=== PATIENT | female | born 1955 | race Caucasian/White ===

== ENCOUNTER 2018-06-11 00:31 | Outpatient (CLI) | payer OTHER, SELFPAY ==
--- NOTE | 2018-06-11 09:45 | DI.MAMMO_ITS ---
SYMPTOM/DIAGNOSIS: SCREENING, Z12.31 MAMMOGRAMS: Mammograms were interpreted according to the usual protocol including computer analysis with CAD system, tomosynthesis and C view imaging. Comparison is made with prior examinations. Breast density, category B. No suspicious masses or microcalcifications are seen. There are well circumscribed nodules seen in both breasts. The skin and axilla are unremarkable. IMPRESSION: No evidence for malignancy. Yearly mammography is recommended. Category 2B. MQSA ASSESSMENT OF FINDINGS: Negative with benign findings. Category 2. Patient will receive a letter notifying them of these results. BI-RADS category B. There are scattered areas of fibroglandular density.
== END 2018-06-11 00:51 ==
PROVIDERS: PCP Family Medicine; Visit Provider Family Medicine
DX: Z12.31 Encounter for screening mammogram for malignant neoplasm of breast (principal)
CPT/HCPCS: 77063; 77067

== ENCOUNTER 2019-01-16 15:27 | Outpatient (REF) | payer OTHER, SELFPAY ==
--- NOTE | 2019-01-16 14:20 | PAPFT_PTH ---
PATIENT: Dori New LOC: N U#:[id number] AGE/SX: 63/F ROOM: RE01/16/[address]: Trish Fuentes : 1955 BED: DIS: 01/16/2019 SPEC #: [id number] RECD: 01/16/19 16:35 STATUS: JOSEFA ANDERSON #: [id number] LOUISE: 01/16/19 14:[address]: Trish Fuentes DEPT: [facility] Cytology RECD BY: Michelle Cortez ENTERED: 01/16/19 16:36 SP TYPE: PAPFT OTHR DR: Gumaro Roberson Tissues: 1 - CX/ENDOCX FOR PAP SMEARS Procedures: PAP THIN PREP/UVM Screening HPV DNA PROBE Comments: [id number]
== END 2019-01-16 15:47 ==
LOC: LBN 15:27
PROVIDERS: PCP Family Medicine; Visit Provider Obstetrics & Gynecology Gynecology
DX: Z12.4 Encounter for screening for malignant neoplasm of cervix (principal); Z11.51 Encounter for screening for human papillomavirus (HPV)
CPT/HCPCS: 88142; 87624

== ENCOUNTER 2019-02-01 13:06 | Outpatient (CLI) | payer OTHER, SELFPAY ==
[2019-02-01 14:35] LABS: ALT 20 U/L (12-78); AST 17 U/L (15-37); Albumin 3.7 g/dL (3.4-5.0); Alkaline Phosphatase 98 U/L (46-116); Anion Gap 10.3 mmol/L (3-11); BUN 29 mg/dL (7-18); Bilirubin, Total 0.4 mg/dL (0.2-1.0); CO2 27.7 mmol/L (21.0-32.0); CREATININE 1.77 mg/dL (0.55-1.02); Calcium 10.2 mg/dL (8.5-10.1); Chloride 101 mmol/L (98-107); Estimated GFR 29.07 (mL/min/1.73m2); Glucose 159 mg/dL (70-100); Magnesium 1.5 mg/dL (1.8-2.4); PHOSPHORUS 3.4 mg/dL (2.6-4.7); Sodium 139 mmol/L (136-145); Total Protein 7.8 g/dL (6.4-8.2)
[2019-02-04 11:20] LABS: Parathyroid Hormone,Intact 47 pg/ml (19-88)
== END 2019-02-01 13:26 ==
PROVIDERS: PCP Family Medicine; Visit Provider Family Medicine
DX: E83.42 Hypomagnesemia (principal); N18.3 Chronic kidney disease, stage 3 (moderate)
CPT/HCPCS: 36415; 80053; 83735; 83970; 84100

== ENCOUNTER 2019-06-12 00:55 | Outpatient (CLI) | payer OTHER, SELFPAY ==
--- NOTE | 2019-06-12 10:30 | DI.MAMMO_ITS ---
EXAM: MG MAMMO SCREENING CLINICAL HISTORY: Screening,z12.31 TECHNIQUE: Bilateral full field digital CC and MLO mammographic images were obtained with 3D tomosy nthesis and utilizing computer aided detection (CAD). COMPARISON: With previous including May/2018. FINDINGS: The breasts are of moderate density with fairly symmetrical distribution of fibroglandular tissue. N o dominant mass or clumped microcalcification is identified in either breast. Current examination is compared with previous examinations including May 2018 and there has been no gross interval ch loreto in appearance in comparison with the previous studies. IMPRESSION: No specific evidence of malignancy at this time. Routine screenings examinations are suggested at yea rly intervals in this age group according to the ACS ACR guidelines. Category 1. Breast density, jeff rosy B. BI-RADS Cat 1 - Negative. Breast Density - Category B - Scattered areas of fibroglandular density.
== END 2019-06-12 01:15 ==
PROVIDERS: PCP Family Medicine; Visit Provider Obstetrics & Gynecology Gynecology
DX: Z12.31 Encounter for screening mammogram for malignant neoplasm of breast (principal)
CPT/HCPCS: 77063; 77067

== ENCOUNTER 2019-07-31 13:26 | Outpatient (REF) | payer OTHER, SELFPAY ==
[2019-07-31 15:15] LABS: Anion Gap 11.5 mmol/L (3-11); BUN 32 mg/dL (7-18); CO2 24.5 mmol/L (21.0-32.0); Calcium 9.9 mg/dL (8.5-10.1); Chloride 104 mmol/L (98-107); Estimated GFR 28.42 (mL/min/1.73m2); Glucose 146 mg/dL (70-100); Magnesium 1.6 mg/dL (1.8-2.4); Potassium 4.8 mmol/L (3.5-5.1); Sodium 140 mmol/L (136-145)
== END 2019-07-31 13:46 ==
LOC: NCHCN 13:26
PROVIDERS: PCP Family Medicine; Visit Provider Family Medicine
DX: E83.42 Hypomagnesemia (principal); N18.3 Chronic kidney disease, stage 3 (moderate)
CPT/HCPCS: 80048; 83735

== ENCOUNTER 2020-04-09 01:30 | Outpatient (CLI) | payer OTHER, SELFPAY ==
--- NOTE | 2020-04-09 07:30 | DI.RAD_ITS ---
EXAM: RF JOINT INJECTION FLUORO GUID CLINICAL HISTORY: R HIP INJ UNDER FLUORO,RT HIP PAIN, M25.559 TECHNIQUE: COMPARISON: No exams were available for comparison FINDINGS: Fluoroscopy was utilized by Dr. Dash during reported right hip injection. Hard copy shows intra- articular injection of the right hip. Fluoro time, 9 seconds. IMPRESSION:
[2020-04-09] MEDS: Omnipaque 300 MG/ML 10 ML BTL IJ (14:43)
[2020-04-09] MEDS: methylPREDNISolone ACETATE 80 MG/ML VIAL IM (14:44)
[2020-04-09] MEDS: Bupivacaine 0.5% Pres-Free 10 ML VIAL IJ (14:44)
--- NOTE | 2020-04-09 18:45 | W.PROCNOTE ---
Date of service: 04/09/20 Time of Service: 14:45 Procedure Note Date of procedure: 04/09/20 Procedure: Right Hip Injection with Fluoroscopic Guidance Surgeon/Proceduralist/Physician: Jacky Dash Procedure Diagnosis: Right Hip Osteoarthritis Procedure Indications: Angelina has had persistent pain of the RIGHT hip and groin. Noninvasive measures have been tried. To serve as both diagnostic and therapeutic, an injection under fluoroscopy was recommended. I had discussed the risks of the procedure and the patient elected to proceed. Procedure Description: Angelina was greeted in the flouroscopy room. The correct side was identified and the consent was reviewed with the patient and signed. The patient was then placed in the supine position on the fluoroscopy table. The RIGHT hip was then prepped with Chloraprep. The anterolateral injection starting point was identiifed by bony landmarks and fluoroscopy. The skin and soft tissue in the tract of the injection was anesthetized with 1% Lidocaine. A spinal needle was then inserted deep into the hip joint at the level of the lateral femoral neck under fluoroscopic guidance. A small amount of Omnipaque solution was injected to confirm intraarticular placement. Once confirmed, the hip was injected with 6cc of 0.5% Bupivicaine and 80mg of Depo-Medrol. A bandaid was placed on the injection site. The patient tolerated the procedure well and noted improvement in pre-injection pain.
== END 2020-04-09 01:50 ==
PROVIDERS: PCP Family Medicine; Visit Provider Student in an Organized Health Care Education/Training Program
DX: M25.551 Pain in right hip (principal); M16.11 Unilateral primary osteoarthritis, right hip
CPT/HCPCS: 20610; 77002; J1040

== ENCOUNTER 2020-05-14 11:04 | Outpatient (CLI) | payer OTHER, SELFPAY ==
--- NOTE | 2020-05-14 06:00 | DI.RAD_ITS ---
EXAM: XR PAIN CLINIC LUMBAR SP 2V CLINICAL HISTORY: Dx: Lumbar Spondylosis, LUMBAR MEDIAL BRANCH BLOCK TECHNIQUE: Fluoroscopy was provided for the referring physician for guidance with performing injecti on procedure. COMPARISON: No exams were available for comparison FINDINGS: Please see procedure note for details. Fluoro time: 51.5 seconds RADIATION DOSE DELIVERED:
[2020-05-14 11:39] VITALS: BP 117/78; PULSE 73; RESP 14; TEMP 36.4; O2SAT 97
--- NOTE | 2020-05-14 12:19 | PDOC.PAIN ---
Pain Clinic Procedure Note Procedure Note Procedure Note: Lumbar/Sacral Medial Branch Blocks CHRISTIAN HONG has been referred to the [facility] for lumbar/sacral medial branch blocks. COMMENTS: I reviewed her note from Ms. Cervantes and her recent imaging DX: Lumbosacral spondylosis without myelopathy Patient was interviewed and the medical record reviewed. There were no medical, pharmacologic, radiographic or other structural contraindications to attempting fluoroscopically guided local anesthetic lumbar/sacral medial branch blocks. Risks and expected side effects as well as potential benefit of the procedure were reviewed and voiced concerns addressed. The printed consent form was signed and witnessed. Standard time-out procedure was performed. Patient was placed in the prone position on the fluoroscopy table and automated blood pressure cuff and pulse oximeter applied. The skin entry points for approaching the anatomic target points of the segmental medial branches of bilateral L3-L5 were identified with anfluoroscopy and marked. Following thorough Chlorhexadine preparation of the skin and draping and 1% lidocaine infiltration of the skin entry points and subcutaneous tissues, a 22 gauge 5 spinal needle was placed under fluoroscopic guidance down on to the target point for each respective segmental medial branch.Position was confirmed in A/P, oblique and lateral views with 0.25ml of omnipaque 240. At that point 0.5ml of 0.5% Bupivacaine was injected towards each segmental nerve and the needles were removed.. Vital signs were stable throughout the procedure and were as recorded in the docflowsheet by the nursing staff. Follow up plans and appointments were discussed and was instructed to keep careful note of how the usual pain was modified by these injections. Specifically was asked to keep a pain diary for the next 24 hours using a numeric pain scale of 0-10 and report these results at the follow-up visit. Post procedure instruction was given as documented in the nursing documentation and having met discharge criteria. Patient was discharged from the [facility]. Based on the medial branches blocked today, if the patient has adequate relief and we are able to proceed to radiofrequency ablation, the treatment should result in the denervation of the bilateral L4-L5 and L5-S1 FACET JOINTS. We would expect to denervate a total of 4 facets during the radiofrequency ablation. COMMENTS: She will call back with her 1-4 hour post-procedure pain levels. CC: Gumaro Roberson
[2020-05-14 12:26] VITALS: BP 160/70; PULSE 92; RESP 22; O2SAT 97
[2020-05-14] MEDS: Omnipaque 240 MG/ML 50 ML BTL IJ (12:27)
[2020-05-14] MEDS: Bupivacaine 0.5% Pres-Free 10 ML VIAL IJ (12:27)
== END 2020-05-14 11:24 ==
PROVIDERS: PCP Family Medicine; Visit Provider Preventive Medicine Occupational Medicine
DX: M47.817 Spondylosis without myelopathy or radiculopathy, lumbosacral region (principal)
CPT/HCPCS: 64493; 64494; 72100; Q9967

== ENCOUNTER 2020-06-02 10:17 | Outpatient (REF) | payer OTHER, SELFPAY ==
[2020-06-02 16:32] LABS: ALT 20 U/L (14-59); AST 19 U/L (15-37); Albumin 3.8 g/dL (3.4-5.0); Alkaline Phosphatase 82 U/L (46-116); Anion Gap 10.1 mmol/L (3-11); BUN 29 mg/dL (7-18); Bilirubin, Total 0.5 mg/dL (0.2-1.0); CO2 27.9 mmol/L (21.0-32.0); CREATININE 2.08 mg/dL (0.55-1.02); Calcium 10.2 mg/dL (8.5-10.1); Chloride 102 mmol/L (98-107); Estimated GFR 24.05 (mL/min/1.73m2); Glucose 90 mg/dL (74-106); Magnesium 1.5 mg/dL (1.8-2.4); PHOSPHORUS 4.4 mg/dL (2.6-4.7); Potassium 4.5 mmol/L (3.5-5.1); Sodium 140 mmol/L (136-145); Total Protein 7.5 g/dL (6.4-8.2)
[2020-06-03 12:20] LABS: Parathyroid Hormone,Intact 30 pg/mL (19-88)
== END 2020-06-02 10:37 ==
LOC: NCHCN 10:17
PROVIDERS: PCP Family Medicine; Visit Provider Family Medicine
DX: E83.42 Hypomagnesemia (principal); N18.4 Chronic kidney disease, stage 4 (severe); E83.52 Hypercalcemia; E11.59 Type 2 diabetes mellitus with other circulatory complications
CPT/HCPCS: 80053; 83735; 83970; 84100

== ENCOUNTER 2020-06-25 02:46 | Outpatient (CLI) | payer OTHER, SELFPAY ==
--- NOTE | 2020-06-25 | DI.MAMMO_ITS ---
EXAM: MAMMO SCREENING CLINICAL HISTORY: SCREENING, Z12.39 TECHNIQUE: Mammograms were interpreted according to the usual protocol including computer analysis w [employer] CAD system, tomosynthesis and C-view imaging. COMPARISON: 2011 through 2018 FINDINGS: The breasts are composed of scattered fibroglandular densities, Breast Density category B. No suspicious masses or suspicious microcalcifications are seen. Vascular calcifications are noted. No skin thickening or abnormal axillary lymph nodes are seen. There has been no significant change from prior exams. IMPRESSION: BI-RADS Category 1, Negative mammogram Yearly screening mammography is recommended. Breast Density - Category B, scattered fibroglandular densities. A negative radiographic report should not delay biopsy if a dominant or clinically suspicious mass is present. Up to ten percent of cancers are not identified on mammography. A negative report may reinforce clinical impression. Adenosis and dense breasts may obscure an underlying neoplasm. False positive reports average 6 to 10%. Patient will receive a letter notifying them of these results.
== END 2020-06-25 03:06 ==
PROVIDERS: PCP Family Medicine; Visit Provider Family Medicine
DX: Z12.31 Encounter for screening mammogram for malignant neoplasm of breast (principal); R92.1 Mammographic calcification found on diagnostic imaging of breast
CPT/HCPCS: 77063; 77067

== ENCOUNTER 2020-07-09 11:12 | Outpatient (CLI) | payer OTHER, SELFPAY ==
--- NOTE | 2020-07-09 06:00 | DI.RAD_ITS ---
EXAM: XR PAIN CLINIC LUMBAR SP 2V CLINICAL HISTORY: Dx:Lumbar Spondylosis TECHNIQUE: 2D and realtime digital imaging was performed. CONTRAST MATERIAL: Refer to procedure report. COMPARISON: No exams were available for comparison FINDINGS: Fluoroscopy was provided for Dr. Reynolds during the performance of a lumbar medial branch block. Chon fowler refer to the procedure report for complete details. Fluoro time: 48.5 seconds IMPRESSION:
[2020-07-09 12:09] VITALS: BP 133/85; PULSE 83; RESP 16; TEMP 36.6; O2SAT 99
[2020-07-09] MEDS: Omnipaque 240 MG/ML 50 ML BTL IJ (12:50)
[2020-07-09] MEDS: Lidocaine 2% Pres-Free 5 ML VIAL IJ (13:01)
--- NOTE | 2020-07-09 13:03 | PDOC.PAIN ---
Pain Clinic Procedure Note Procedure Note Procedure Note: Lumbar/Sacral Medial Branch Blocks #2 CHRISTIAN HONG has been referred to the [facility] for lumbar/sacral medial branch blocks. COMMENTS: She did great with her first LMBB DX: Lumbosacral spondylosis without myelopathy Patient was interviewed and the medical record reviewed. There were no medical, pharmacologic, radiographic or other structural contraindications to attempting fluoroscopically guided local anesthetic lumbar/sacral medial branch blocks. Risks and expected side effects as well as potential benefit of the procedure were reviewed and voiced concerns addressed. The printed consent form was signed and witnessed. Standard time-out procedure was performed. Patient was placed in the prone position on the fluoroscopy table and automated blood pressure cuff and pulse oximeter applied. The skin entry points for approaching the anatomic target points of the segmental medial branches of bilateral L-L5DR were identified with anfluoroscopy and marked. Following thorough Chlorhexadine preparation of the skin and draping and 1% lidocaine infiltration of the skin entry points and subcutaneous tissues, a 22 gauge spinal needle was placed under fluoroscopic guidance down on to the target point for each respective segmental medial branch.Position was confirmed in A/P, oblique and lateral views with 0.25ml of omnipaque 240. At this point I injected 0.5 cc of 2% Lidocaine at each segmental sensory nerve. Vital signs were stable throughout the procedure and were as recorded in the docflowsheet by the nursing staff. Follow up plans and appointments were discussed and was instructed to keep careful note of how the usual pain was modified by these injections. Specifically was asked to keep a pain diary for the next 24 hours using a numeric pain scale of 0-10 and report these results at the follow-up visit. Post procedure instruction was given as documented in the nursing documentation and having met discharge criteria. Patient was discharged from the [facility]. Based on the medial branches blocked today, if the patient has adequate relief and we are able to proceed to radiofrequency ablation, the treatment should result in the denervation of the bilateral L4-L5 and L5-S1 FACET JOINTS. We would expect to denervate a total of 4 facets during the radiofrequency ablation. COMMENTS: She will call back with her 1-4 hour post-procedure pain scores. CC: Gumaro Roberson
[2020-07-09 13:08] VITALS: BP 142/92; PULSE 100; RESP 22; O2SAT 100
== END 2020-07-09 11:32 ==
PROVIDERS: PCP Family Medicine; Visit Provider Preventive Medicine Occupational Medicine
DX: M47.817 Spondylosis without myelopathy or radiculopathy, lumbosacral region (principal)
CPT/HCPCS: 64493; 64494; 72100; Q9967

== ENCOUNTER 2020-08-27 07:50 | Outpatient (CLI) | payer OTHER, SELFPAY ==
--- NOTE | 2020-08-27 06:00 | DI.RAD_ITS ---
EXAM: XR PAIN CLINIC LUMBAR SP 2V CLINICAL HISTORY: Dx: Lumbar Spondylosis TECHNIQUE: 2D and realtime digital imaging was performed. CONTRAST MATERIAL: Refer to procedure report. COMPARISON: No exams were available for comparison FINDINGS: Fluoroscopy was provided for Dr. Reynolds during the performance of a lumbar radiofrequency ablation pro cedure. Please refer to the procedure report for complete details. Fluoro time: 70.5 seconds IMPRESSION: As above
[2020-08-27 08:01] VITALS: BP 130/82; PULSE 84; RESP 17; TEMP 37; O2SAT 98
[2020-08-27] MEDS: Lactated Ringers 1,000 ML 80 ML IV (08:38)
[2020-08-27] MEDS: fentaNYL 100 MCG/2 ML VIAL IVP ×2 (08:39→08:47)
[2020-08-27] MEDS: Midazolam 2 MG/2 ML VIAL IVP (08:39)
[2020-08-27 09:19] VITALS: BP 140/69; PULSE 98; RESP 15; O2SAT 98
[2020-08-27] MEDS: methylPREDNISolone ACETATE 40 MG/ML VIAL IJ (09:32)
[2020-08-27] MEDS: Bupivacaine 0.5% Pres-Free 10 ML VIAL IJ (09:33)
[2020-08-27] MEDS: Lidocaine 2% Pres-Free 5 ML VIAL IJ (09:33)
[2020-08-27] MEDS: Lidocaine 1% Pres-Free 30 ML VIAL IJ (09:34)
--- NOTE | 2020-08-27 10:04 | PDOC.PAIN ---
Pain Clinic Procedure Note Procedure Note Procedure Note: [Right/Left/Bilateral] Lumbar Radiofrequency with Coolief Machine PROCEDURE NOTE Date of Service: August 27, 2020 Patient: CHRISTIAN HONG Provider: Dave Reynolds DO, MPH Pre Operative Diagnosis: Lumbosacral spondylosis without myelopathy Post Operative Diagnosis: Same PROCEDURE: Radiofrequency Ablation of medial branches - Bilateral L3 L4 L5 and bilateral S1 lateral branches CHRISTIAN HONG was brought into the fluoroscopy suite and positioned into the prone position on the fluoroscopy table and allowed to adjust to a position of comfort. A grounding pad was placed on the [right/left] thigh. The lumbar region was widely prepped with a chloraprep solution, allowed to air dry and draped in standard sterile surgical fashion. Local anesthesia was provided by 8 mL of 2% Lidocaine delivered with a 25g needle. A 17g 100mm radiofrequency introducer needle was placed to the planned anatomic targets guided with intermittent fluoroscopy with a perpendicular approach to terminally place at the junction of the superior articular process and the transverse process of the bilateral L3 L4 L5] and the base of the sacral ala on the bilateral for the L5 medial branch nerve. I also ablated the bilateral S1 lateral branches between the sacral ala and the S1 foramen The stylets were removed and radiofrequency probes with a 4mm active tip were then inserted. Needle tip position of the probes was verified in the AP, oblique, and lateral views. At each site, the medial branch nerve was stimulated at 2 Hz to a maximum 1-2 volts determined to finalize safe needle and electrode placement. The patient was awake and responsive during this portion of the procedure. Each target was anesthetized with 1-2 mL of 2 % Lidocaine for anesthesia for lesioning and then each target was lesioned at 80 degrees Celsius for 2 minutes and 30 seconds. Tissue impedences were noted to be between 250 and 500 Ohms. 1/8 cc of Depomedol (40 mg/cc) and 1 cc Bupivacaine was injected to each location after the ablation. Electrodes and needles were then removed and bandages placed over the needle placement sites, the patient then returned to the supine position on a stretcher and transported to the recovery room without hemodynamic, neurologic, or allergic reactions. Fluoroscopic images were printed for hard copy recording and digitally archived. Follow up plans and appointments were discussed with the CHRISTIAN . Post procedure instruction was given as documented in nursing documentation and having met discharge criteria, CHRISTIAN was discharged from the [facility]. COMMENTS: No complications. F/U with our office as needed. I personally performed this entire procedure. Dave Reynolds DO, MPH Attending Physician
== END 2020-08-27 08:10 ==
PROVIDERS: PCP Family Medicine; Visit Provider Preventive Medicine Occupational Medicine
DX: M47.816 Spondylosis without myelopathy or radiculopathy, lumbar region (principal)
CPT/HCPCS: 64635; 64636; 72100; J1030; J2250; J3010

== ENCOUNTER 2020-10-09 11:08 | Outpatient (CLI) | payer OTHER, SELFPAY ==
--- NOTE | 2020-10-09 10:00 | DI.RAD_ITS ---
EXAM: XR HIP RT COMPLETE AP PELVIS CLINICAL HISTORY: right hip DJD. TECHNIQUE: 2D digital imaging was performed. COMPARISON: CR PELVIS AP from 11/16/2017 CR LUMBAR SPINE AP, LAT from 12/11/2017 FINDINGS: There has been further progression of degenerative changes in the right hip, now severe with eliminat ion of the joint space and large osteophytes. The opposite-left hip it appears unchanged and exhibit s only minimal degenerative changes. IMPRESSION: Progression of osteoarthritic disease in the right hip which is now severe. DATA REPOSITORY: RADIATION DOSE DELIVERED:
== END 2020-10-09 11:28 ==
PROVIDERS: PCP Family Medicine; Referring Provider Family Medicine; Visit Provider Student in an Organized Health Care Education/Training Program
DX: M16.11 Unilateral primary osteoarthritis, right hip (principal)
CPT/HCPCS: 73502

== ENCOUNTER 2020-10-15 13:33 | Outpatient (REF) | payer OTHER, SELFPAY ==
[2020-10-15 16:02] LABS: HCT 40.6 % (36.0-46.0); HGB 12.8 g/dL (11.2-15.7); MCH 30.1 pg (27.0-33.0); MCHC 31.5 % (32.0-36.0); MCV 95.5 fL (80-95); MPV 10.7 fL (8.0-11.0); Platelet Count 271 10^3/uL (130-400); RBC 4.25 10^6/uL (3.93-5.22); RDW 13.9 % (11.7-14.6); RDW-SD 48.7 fL; WBC 9.37 10^3/uL (4.4-10.8)
[2020-10-15 16:20] LABS: ALT 19 U/L (14-59); AST 14 U/L (15-37); Albumin 3.9 g/dL (3.4-5.0); Alkaline Phosphatase 79 U/L (46-116); Anion Gap 10.8 mmol/L (3-11); BUN 31 mg/dL (7-18); Bilirubin, Total 0.4 mg/dL (0.2-1.0); CO2 25.2 mmol/L (21.0-32.0); CREATININE 1.82 mg/dL (0.55-1.02); Calcium 9.3 mg/dL (8.5-10.1); Chloride 105 mmol/L (98-107); Estimated GFR 27.97 (mL/min/1.73m2); Glucose 119 mg/dL (74-106); Potassium 5.2 mmol/L (3.5-5.1); Sodium 141 mmol/L (136-145); Total Protein 7.6 g/dL (6.4-8.2)
[2020-10-15 16:23] LABS: Iron 42 ug/dL (50-170); Total Iron Binding Capacity 270 ug/dL (250-450); Transferrin Sat 16 % (15-50)
[2020-10-15 16:34] LABS: Hemoglobin A1C 6.4 % (<5.7)
[2020-10-15 16:40] LABS: Magnesium 1.8 mg/dL (1.8-2.4); PHOSPHORUS 3.5 mg/dL (2.6-4.7); Vitamin D 25 Total 14.8 ng/ml (30-100)
[2020-10-16 09:01] LABS: Parathyroid Hormone,Intact 100 pg/mL (19-88)
== END 2020-10-15 13:53 ==
LOC: NCHCN 13:33
PROVIDERS: PCP Family Medicine; Visit Provider Family Medicine
DX: E83.42 Hypomagnesemia (principal); N18.4 Chronic kidney disease, stage 4 (severe); E11.29 Type 2 diabetes mellitus with other diabetic kidney complication; E83.52 Hypercalcemia
CPT/HCPCS: 80053; 82306; 85027; 83036; 83540; 83550; 83735; 83970; 84100

== ENCOUNTER 2020-10-16 00:49 | Outpatient (CLI) | payer OTHER, SELFPAY ==
[2020-10-17 17:11] LABS: COVID-19 RT-PCR Result NEGATIVE (Negative)
== END 2020-10-16 01:09 ==
PROVIDERS: PCP Family Medicine; Visit Provider Student in an Organized Health Care Education/Training Program
DX: Z11.52 Encounter for screening for COVID-19 (principal); Z01.818 Encounter for other preprocedural examination
CPT/HCPCS: U0003

== ENCOUNTER 2020-10-21 05:59 | Day surgery (SDC) | payer OTHER, SELFPAY ==
[2020-10-21] VITALS (9 sets, daily range): BP systolic 91–138; BP diastolic 46–66; PULSE 51–88; RESP 13–18; TEMP 36.2–36.7; O2SAT 97–100
[2020-10-21] MEDS: Acetaminophen 500 MG TAB 1000 MG PO (06:29)
[2020-10-21] MEDS: Celecoxib 200 MG CAP 400 MG PO (06:29)
[2020-10-21] MEDS: Lactated Ringers 1,000 ML 30 ML IV (06:30)
--- NOTE | 2020-10-21 07:17 | W.PM.DS.N ---
Date of service: 10/21/20 Time of Service: 14:21 DS: Diagnosis Discharge Diagnosis (1) Osteoarthritis of right hip: Status: Acute Discharge Plan Disposition Patient Disposition: HOME Condition: Good Discharge Details Reason For Visit: Right hip arthritis Attending Provider: Jacky Dash Primary Care Provider: Gumaro Roberson Home Meds and New Rx's Prescriptions: New aspirin 81 mg tablet,delayed release (DR/EC) 81 mg PO BID Qty: 60 RF: 0 acetaminophen 500 mg tablet 1,000 mg PO Q8H PRN (Reason: pain) Qty: 90 RF: 3 hydromorphone 2 mg tablet 2 mg PO Q4H PRN (Reason: pain) Qty: 15 RF: 0 pantoprazole 40 mg tablet,delayed release (DR/EC) 40 mg PO DAILY Qty: 30 RF: 0 docusate sodium [Colace] 100 mg capsule 100 mg PO BID PRNQty: 10 RF: 0 ibuprofen 600 mg tablet 600 mg PO TID PRN (Reason: pain) Qty: 90 RF: 3 Continued atorvastatin [Lipitor] 10 MG tablet 10 mg PO DAILY RF: 0 lisinopril 10 mg tablet 5 mg PO DAILY RF: 0 glipizide 10 mg tablet 5 mg PO DAILY RF: 0 Januvia 25 mg Tablet 25 mg PO DAILY RF: 0 Discontinued acetaminophen [Tylenol Extra Strength] 500 mg tablet 1,000 mg PO BID PRNRF: 0 aspirin [Aspir-81] 81 MG tablet,delayed release (DR/EC) 81 mg PO DAILY RF: 0 Discharge Instructions Additional Instructions: Dr. Dash's Total Hip Discharge Instructions Activity: The most important activity is to walk. You should try to take short walks a few times a day. You have no restrictions on movement or positioning, but do not try to force what you do. You will find some stiffness and weakness with hip flexion (lifting your knee). Do not try to strengthen this too early, continue to practice walking and stairs and this will come. - Outpatient physical therapy can be helpful to help return you to a normal gait and improve your flexibility and strength. This can start around 2 weeks. For most patients, it?s not necessary. Usually this is determined at the time of discharge or at the first post-operative visit. - You should wear the TREMAYNE hose or a compression sock on both legs for 2 weeks. You may remove those at night. These prevent blood pooling and swelling. Dressing: Keep the surgical dressing in place for at least one week, although it is recommended to stay in place untill follow-up. It may get wet after 3 days but avoid soaking the dressing. If it gets wet, just lightly pat dry. Most people prefer to cover the dressing with some ClingWrap, Saran Wrap, to keep it dry, or avoid direct spray to the area. It is important to always keep some gauze or the dressing between skin folds, especially when you are sitting, so the incision is not folded over on itself at the belly fold. Medications: - You should take Tylenol and an anti-inflammatory Ibuprofen as your primary pain control medications - You have been prescribed a stronger pain medication Hydromorphone for breakthrough pain, take as needed as prescribed. - You have also been prescribed a stomach acid reduction agent Pantoprozole to help reduce stomach acid and reflux. - You will be taking Aspirin 81mg twice a day for DVT prevention unless instructed otherwise. - If you have constipation you should take Colace or Miralax (both [id number]). It takes most people 3-4 days to have a bowel movement. Follow-up: 2 weeks. If you have any acute concerns or questions, please do not hesitate to contact the office at [phone]. You may contact Dr. Dash with any questions after hours through the hospital at [phone] or on his cell phone at [phone]. Referrals: Jacky Dash MD [ [facility] STAFF PHYSICIAN] - Equipment/Supplies: Walker Activity:: Activity as Tolerated Shower/Bathe:: 72 hours Diet:: Carb Counting Discharge Orders Discharge Orders: Discharge Order (Routine); Ordered 10/21/20 Ordered By: Jacky Dash DS: Summary Time Spent with Patient providing and/or coordinating discharge services: Less than 30 minutes Status at Discharge Functional status at discharge: uses cane/walker Overall status at discharge: patient is progressing back to baseline Mental Status: mental status grossly normal Speech and Movement: speech and movement normal Mood: congruent mood Affect: normal affect Exam Psych Mental Status: mental status grossly normal Speech and Movement: speech and movement normal Mood: congruent mood Affect: normal affect DS: Data Vitals/I&O Vitals and I&O: Vital Signs Temperature 36.7 C 10/21/20 06:05 Pulse 51 L 10/21/20 06:05 Pulse Rhythm Regular 10/21/20 06:05 Respiratory Rate 18 10/21/20 06:05 Respiratory Depth Normal 10/21/20 06:05 Blood Pressure 138/66 10/21/20 06:05 Pulse Oximetry 97 10/21/20 06:05 Oxygen Delivery Method Room Air 10/21/20 06:05 Oxygen Flow Rate 0 10/21/20 06:05 Intake & Output 10/20/20 10/20/20 10/21/20 11:59 23:59 11:59 Weight 120.202 kg 121.1 kg Data Completed and Pending Labs on day of discharge: Labs from last 24 hours 10/21/20 06:40 Patient ABO/Rh Pending [facility] Medical History Actinic keratitis Adult body mass index greater than 30 Asthma Chronic kidney disease, stage 3 Diabetes mellitus controlled with oral agents Diverticular disease Essential hypertension HTN (hypertension) Hypothyroidism Iliotibial band syndrome Irritable bowel syndrome with diarrhea Left tibialis posterior tendonitis Right hip pain Sciatica Ulcerative colitis Surgical History Arthroscopy, Shoulder (03/04/16) RIGHT SHOULDER/DR. ANTONIO Colonoscopy - IV Sedation frequently secondary to imflammatory bowel dz 2015 - . will begin routine schedule of surveillence H/O foot surgery Repair of umbilical hernia 2007 Replacement of total knee joint bilateral knee replacements Rotator Cuff Repair 10/2011 Family History Brother Myocardial infarction sudden episode Mother Chronic obstructive lung disease Father Alzheimer's disease aunt Personal history of malignant neoplasm Social History (Updated 04/22/20 @ 09:30 by Kateryna Graff) Smoking/Tobacco Use Status: Former Tobacco Use Quit Date: 09/25/79 Smoking risk assessment performed?: Yes Alcohol Intake: never Drug use: Never Substance use type: does not use Household members: spouse and other Details: H-Gael Number of Children: 2 number of grandchildren: 4 current occupation: 2018 retired [employer] Current gender identity: female What type of physical activity do you participate in: sedentary lifestyle and additional Details: Was physically active prior to injury of the foot Special crow needs: No Seatbelt use: always Do you feel safe at home: Yes Do you feel safe in your relationship?: Yes Additional Social history: . Female Reproductive History Menstrual Menopause type: natural History History 2 Para Hx # Term Pregnancies 2 Multiple births Hx # Pregnancies Ectopic pregnancies AB induced Hx Number of Living Children AB spontaneous
[2020-10-21] MEDS: ceFAZolin 3,000 MG in Normal Saline 100 ML 200 MG IVPB (07:53)
[2020-10-21] MEDS: Bupivacaine 0.25% Pres-Free 30 ML VIAL (09:14)
[2020-10-21] MEDS: Ketorolac 30 MG/ML VIAL (09:14)
--- NOTE | 2020-10-21 09:22 | DI.RAD_ITS ---
EXAM: XR HIP RT IN OR CLINICAL HISTORY: OA RIGHT HIP. TECHNIQUE: 2D and realtime digital imaging was performed. COMPARISON: CR XR HIP RT COMPLETE AP PELVIS from 10/09/2020 FINDINGS: Fluoroscopy was provided in the OR for Dr. Dash. Hard copy images show placement of a right hip prosthesis. The alignment appears satisfactory. Fluoro time: 38.4 seconds Please see procedure note for details. RADIATION DOSE DELIVERED:
--- NOTE | 2020-10-21 09:54 | ROE_ITS ---
Date of service: 10/21/20 Time of Service: 09:28 Operative Note Operative Note DATE OF PROCEDURE: 10/21/20 PRE-OP DIAGNOSIS: Right Hip Osteoarthritis POST-OP DIAGNOSIS: same PROCEDURE: Right Anterior Total Hip Arthroplasty, increased complexity due to morbid obesity SURGEON: Jacky Dash [employer]ENTY ONE DEALER: Pratik Nazario ANESTHESIA: spinal ESTIMATED BLOOD LOSS: 300 PATHOLOGY: none sent COMPLICATIONS: None Patient was transported to: PACU Patient's condition: stable Implants: 1. Depuy Edgewater Acetabular Component, 50mm 2. Depuy Acetabular Liner, [id number] 3. Depuy Corail Standard Collared Femoral Stem, Size 12 4. Depuy Altrx Ceramic Femoral Head, Size 32+5mm Indications: I have seen Angelina in clinic for symptoms of hip arthritis, confirmed with radiographic findings. Angelina has exhausted nonoperative methods and was having significant limitations in daily function and desired better function and less pain. I discussed the technical details of a hip replacement. I explained the risks of the procedure to include, but not limited to, bleeding, infection, pain, stiffness, fracture, damage to nerves and vessels, damage to muscles and tendons, loosening, instability, leg length inequality, need for repeat procedure, blood clot and cardiopulmonary demise. Despite these risks, Angelina elected to proceed. Findings: There was significant signs of arthritis throughout the hip. Large osteophytes were present throughout the femoral head and neck. Procedure Description: Angelina was greeted in the preoperative holding area where the correct side was identified and marked. The consent was reviewed with the patient and signed. The history and physical was updated. All questions were answered. Angelina was taken back to the operating room. A spinal anesthestic was then administered. The feet were wrapped with cast padding and Coban and then placed into the boot liners and then into the boots. Care was taken to protect the skin and make sure the heels were fully down and the boots were stable. The patient was then positioned onto the HANA table. Both legs were held in a neutral position. SCDs were applied. The patient was then slid down onto a peroneal post. The pannus was taped up and over to allow access to the anterior hip. A preoperative AP pelvis was obtained to serve as a reference for determining leg lengths. This AP was also utilized to identify the appropriate positioning of the incision. Prophylactic antibiotics in the form of Cefazolin were administered. 1g of Tranxemic Acid was given intravenously within 30 minutes of incision. The right leg was then prepped with Chloraprep and draped in a standard fashion. A second prep with Chloraprep was performed prior to placement of a shower-curtain type drape with Iodine impregnated skin protection. A timeout to confirm correct identity, side and site, procedure, allergies, anesthesia, and medical concerns was performed. An obliquely oriented incision was made starting lateral to the ASIS and running distal over the Tensor Fascia Elizabeth (TFL) muscle belly toward the fibular head, approximately 10cm. This incision had to be made slightly more distal to try to avoid going up onto her pannus fold. The skin and soft tissue was dissected sharply, through Mary?s fascia, and to the fascia of the TFL. Identification of the fascia was quite challenging given her morbid obesity. There were multiple fat layers and vasculature within the fat which had to be separately identified and coagulated. Once the fascia and superior border of the IT was band identified, the fascia was incised with a new knife just above any perforators from the IT band. The TFL muscle belly was bluntly dissected away from the fascia and moved laterally. The fat between TFL and rectus was identified to ensure the dissection was not within the TFL. Blunt dissection created space between abductors and the capsule and retractor was placed over the lateral femoral neck. The fibers of the rectus femoris tendon were iden tified and these were freed from the anterior capsule. A second cobra retractor was placed around the medial femoral neck. The TFL was further retracted laterally to show the deep fascia. Careful dissection through this layer identified three main crossing vessels of the lateral femoral circumflex. These were cauterized in multiple locations and then cut without any noticeable bleeding. The TFL was further released bluntly from the deep fascia to expose anterior hip capsule and fat The Marco orthopaedic retractor was then placed beneath the TFL and against sartorius and medial soft tissues to protect and retract the soft tissues. A T-capsulotomy was then performed starting at the superior lateral acetabulum and moving distally to the intertrochanteric ridge. These capsular flaps were tagged with a No. 1 Ethibond and elevated from within. The capsular flaps were released to the shoulder of the lateral neck and to the lesser trochanter to give excellent visualization of the proximal femur. A neck osteotomy was performed using an oscillating saw based on preoperative templates. This cut started in the shoulder and of the lateral neck and exited medially. The saw was at all times directed medially to avoid injury to the greater trochanter. 6cm of traction was applied to the leg and the osteotomy opened. The femoral head was removed with a corkscrew, making sure to protect the TFL on its exit. Traction was released after head removal. This was measured on the back table to determine the starting reamer size. Portions of the rectus obscuring visualization were minimally elevated off the superior acetabulum. An anterior retractor was placed over the anterior wall between capsule and labrum and attached to the Gripper retraction system. The femur was rotated to 90 degrees and medial capsule was fully released until the lesser trochanter was palpable and visible; the femur was returned to 30 degrees. A posterior retractor was placed similarly between capsule and labrum. This provided excellent visualization. The contents of the cotyloid fossa were removed with electrocautery and the labrum was removed with a knife. There was a notable floor osteophyte. There was significant chondromalacia of the superior acetabulum. Acetabular reaming began with a 46mm reamer. This first reaming was directed anterior to posterior and medial to get down to the true floor. This was inspected and reamed until the true floor was reached. The anterior retractor was then released and entry and exit was provided by traction on the capsular flaps. I then reamed sequentially up to a 50mm reamer where good fit was obtained. The larger reamers were oriented based on anatomical reference of the anterior and lateral zepeda to ensure proper abduction and anteversion. Positioning and size was confirmed with the fluoroscopy. A 50mm Depuy [place] acetabular component was selected. The acetabulum was reamed around the periphery with the selected acetabular size to prevent a rim fit. The deep tissues were irrigated. The acetabular component was then impacted in a position of about 40-45 degrees of abduction and 15-20 degrees of anteversion, using the patient?s anatomy as the ultimate landmark. Fluoroscopy was used to confirm this. There was excellent ad operations associate of the acetabular component and the inserting handle was removed. The acetabular liner, Depuy [id number] polyethylene liner, was inserted and lined up with the tines of the acetabular component. There was no soft tissue interposition. The liner was then impacted into position and confirmed to be well-seated. A portion of the nigel-articular cocktail was then injected around the acetabulum into the capsule and periosteum. This cocktail consisted of 50cc of 0.25% Bupivicaine and 20cc of Exparel and 30mg of Ketorolac. The leg was rotated to 120 degrees. Any remaining medial capsule was released until the lesser trochanter was easily palpable. A retractor was placed mediall y. The lateral capsule was further released into the shoulder to allow access to the greater trochanter. A Soni retractor was placed over the greater trochanter which allowed the trochanter to flip in front of the capsule for excellent exposure. The leg was brought down into maximal extension and 20 degrees of adduction while ensuring there was no impingement on the acetabulum. Any remnant capsule within the trochanter was released. Piriformis and obturator externis were identified and protected. There was excellent access to the proximal femur. The lateral neck remnant was removed with a rongeur. A blunt canal probe was used to identify the canal and trajectory for later broaching. A box osteotome initiated the broach course. A small curved rasp and a curved curette were used to work laterally. Broaching then began with a size 8 Corail broach. This was inserted manually around the trochanter and into the canal before mallet blows. Broaching was challenging given the prominence of her pannus fold. Manipulation of the fold with retractors was necessary to get the broach in a appropriate position. The broach was seated to a few millimeters below the cut level based on the neck cut and the preoperative template. Sequential broaching was continued with the Kincise pneumatic broaching device until a tight fit was obtained with good rotational control of the femur. A trial standard neck was inserted along with a +5 trial head. The leg was brought out of extension and adduction and then reduced with traction and internal rotation. The leg was stable anteriorly in a position of 30 degrees of extension and 90 degrees of external rotation. Fluoroscopy was used to ensure there was no fracture and the stem was seated well. Leg lengths were checked with an AP pelvis and pelvic reference points. Bottlenose navigation system was used to confirm appropriate positioning and leg length and offset. Once content with the desired offset and leg lengths, the leg was brought back into extension, external rotation and adduction. The periosteum and surrounding tissue was injected with remaining portion of the nigel-articular cocktail. The proximal femur was irrigated as well as the deep tissues. The Depuy Corail standard collared stem, size 12, was then manually inserted into the proximal femur making sure to control rotation. It was then malleted into position with light blows, giving breaks to allow bone expansion and decrease risk of fracture. The selected Depuy Altrx Ceramic Head, size 32+5mm, was then placed onto the clean and dry trunnion and secured with impaction onto the tapered fit. The leg was brought back out of extension and adduction and reduced with traction and internal rotation. Stability was confirmed with no shuck at 90 degrees of external rotation and 30 degrees of extension. No impingement through range of motion arc. Final x-ray images were obtained with fluoroscopy to confirm adequate positioning and no intraoperative fracture. The deep tissues were thoroughly irrigated with Irrisept chlorhexadine solution. The second dose of TXA 1g was administered intravenously.The capsule was then reapproximated with the previously placed Ethibond sutures. The TFL fascia was finally closed with a No. 2 Stratafix, barbed suture. Deep tissues were then reapproximated with 0 Vicryl and a running 2-0 Vicryl. The skin was closed with a running 4-0 Monocryl in a subcuticular fashion. This was reinforced with skin glue. A Mepilex silver dressing was applied. At the end of the case, all counts were correct. Angelina was transferred to the hospital bed without difficulty and suffering no apparent complication. Angelina has a good prognosis. Physical therapy will start today and without restrictions, weight-bearing as tolerated. Aspirin 81mg BID will be used for DVT prophylaxis.
[2020-10-21] MEDS: HYDROmorphone 2 MG TAB PO (13:36)
--- NOTE | 2020-10-21 14:00 | PT.INIE ---
Date of service: 10/21/20 Time of Service: 14:00 PT Notes Visit Reasons: Right hip arthritis Physical Therapy Day Surgery Initial Evaluation Date: 10/21/2020 Referring Doctor: Jacky Dash MD PT Orders: PT CONSULT: Status post Ortho surgery. Status post right GURPREET. Precautions: WBAT on right LE. Patient Profile/Admitting Diagnosis: Dori is a 65-year-old female with primary unilateral osteoarthritis of the right hip and is status post right total hip arthroplasty on postoperative day 0. PMHX: Medical History Actinic keratitis Adult body mass index greater than 30 Asthma Chronic kidney disease, stage 3 Diabetes mellitus controlled with oral agents Diverticular disease Essential hypertension HTN (hypertension) Hypothyroidism Iliotibial band syndrome Irritable bowel syndrome with diarrhea Left tibialis posterior tendonitis Right hip pain Sciatica Ulcerative colitis Surgical History Arthroscopy, Shoulder (03/04/16) RIGHT SHOULDER/DR. ANTONIO Colonoscopy - IV Sedation frequently secondary to imflammatory bowel dz 2014 - nl. will begin routine schedule of surveillence H/O foot surgery Repair of umbilical hernia 2007 Replacement of total knee joint bilateral knee replacements Rotator Cuff Repair 10/2011 Social History/Home Situation: Lives with in a private home with 4 steps to enter with one rail. There is another set of 10 steps leading to her bedroom with bilateral rails. Equipment Owned/DME: [facility], [facility] Subjective: Agreeable to PT consult. Reports 2?3/10 pain in the right hip at rest and 5/10 pain in the same area with weight bearing. Denies headache, chest pain, and lightheadedness throughout. Denies numbness and tingling in bilateral lower extremities. Emphasized that although she is hurting, this is a huge improvement from how much she has suffered prior to surgery. Objective: General Observation: Supine in stretcher. Mepilex Ag over his surgical incision. IV access in right UE. TEDS in both legs. Obese. Mental Status: Alert and oriented x 4 Pain: 2?3/10 in the right hip at rest, 5/10 with weight bearing ROM: Right Lower Extremity: Unable to bend beyond 90 degrees while seated at edge of bed due to pain despite 3 attempts. Hip abduction WFL. Knee flexion 45 degrees to 80 degrees limited by pain. Knee extension -45 degrees limited by pain. Ankle dorsiflexion 10 degrees beyond neutral. Ankle plantarflexion about 10 degrees. Left Lower Extremity: Hip flexion WFL. Hip abduction WFL. Knee flexion WFL. Ankle dorsiflexion absent. Ankle plantarflexion . Strength: Right Lower Extremity: Hip flexors 3-/5. Hip abductors 4-/5. Knee flexors 3-/5. Knee extensors 3-/5. Ankle dorsiflexors 3-/5. Ankle plantarflexors 3-/5. Left Lower Extremity: Hip flexors 4-/5. Hip abductors 4-/5. Knee flexors 4-/5. Knee extensors 4-/5. Ankle dorsiflexors 1/5. Ankle plantarflexors 1/5. Sensation: Intact as to pain and light pressure in bilateral lower extremities. Bed Mobility/Transfers: Supine to sit standby assist Sit to stand contact-guard assist Stand to sit standby assist Bed to chair contact-guard assist THERA EX: Complained of pain and only tolerated LAQ x3 on the right side. Gait: Guided patient through level surface ambulation of 100 feet using front wheeled walker with step to gait pattern and report of 5/10 pain in the right hip that subsided with rest. Stairs: Instructed patient with safe and correct technique while negotiating 4 x 4 inch steps holding onto rail with right hand and onto physical therapist's hand with the other, nurse Salvador and nurse Toshia assisting for safety. Minimal assist provided. Complained of increase in pain level to 5?6/10 in the right hip. Balance: Static Sitting: Normal Dynamic Sitting: Normal Static Standing: Fair Dynamic Standing: Fair Special Tests: Mobility Limitations Standardized Measure [facility] AM-PAC 6 clicks Basic Mobility Inpatient Short Form: Raw Score: 16 CMS Score: 54% deficit Informed Consent/Education: Patient instructed in purpose of PT consult. Packet containing [] exercise protocol has been given to patient. Education and training on initial set of exercises that can be done at home have been completed with patient. Assessment: Dori demonstrates functional mobility decline requiring the use of a front wheeled walker for all mobility ADL performance, impairment in balance, pain complaint, and increased risk for falls due to postoperative status. Patient presents with clinical signs and symptoms consistent with current/admitting diagnoses that have resulted to mobility limitations, gait instability, generalized weakness, and impairment of motor control as demonstrated by the following impairment level findings: 1. Decreased strength to right hip major muscle groups 2. Impaired standing balance 3. Limitation of joint range of motion in right hip and right knee 4. Postoperative Pain in R hip Impairments are contributing to the following functional limitations: 1. Inability to safely ambulate without assistive device 2. Increase completion time for mobility ADL performance 3. Increased fall risk Patient is assessed as a [id number] moderate complexity based on the following: History: 65-year-old female with impairment level findings, functional limitations, and past medical history as indicated above Examination: Demonstrable impairment in strength, balance, and mobility level with underlying impairments and functional limitations as documented above Presentation: Evolving Decision Makin moderate complexity Goals: N/A. PT evaluation and 1-2 treatment sessions only for functional mobility training using recommended AD and for HEP instruction. Plan of Care/Treatment Plan: N/A. PT evaluation and 1-2 treatment session only for functional mobility training using recommended AD and for HEP instruction. DISCHARGE RECOMMENDATIONS: Home when medically cleared by orthopedic surgeon. Will benefit from outpatient PT services in order to achieve highest functional level using single-point cane. TREATMENT CODE/TIME: Session 1??[id number] x 20 minutes, [id number] x 13 minutes beginning at 12:57 PM. Session 2??[id number] x 28 minutes beginning at 14:00 PM. Thank you for the opportunity to participate in the care of this patient. Rolanda Simental PT, DPT, CLT [facility] [place], [place]
== END 2020-10-21 15:03 | disposition home or self-care (01) ==
PROVIDERS: PCP Family Medicine; Visit Provider Student in an Organized Health Care Education/Training Program
PROC: (CPT 27130; principal; 2020-10-21 07:30)
DX: M16.11 Unilateral primary osteoarthritis, right hip (principal); Z96.641 Presence of right artificial hip joint; E66.01 Morbid (severe) obesity due to excess calories; Z68.41 Body mass index [BMI] 40.0-44.9, adult; E11.22 Type 2 diabetes mellitus with diabetic chronic kidney disease; N18.30 Chronic kidney disease, stage 3 unspecified; I10 Essential (primary) hypertension
CPT/HCPCS: 27130; 20985; C1776; 86850; 86900; 86901; 97162; 97530; NC; 73501; J0690; J1885; J2405

== ENCOUNTER 2020-11-06 10:51 | Outpatient (CLI) | payer OTHER, SELFPAY ==
--- NOTE | 2020-11-06 11:23 | DI.RAD_ITS ---
EXAM: XR HIP RT COMPLETE AP PELVIS INDICATION: 1st post op R GURPREET. COMPARISON: CR XR HIP RT COMPLETE AP PELVIS from 10/09/2020 XR HIP RT IN OR from 10/21/2020 XR HIP RT IN OR from 10/21/2020 TECHNIQUE: 2D digital imaging was performed. FINDINGS: There has been no change in the alignment of the right hip prosthesis. No abnormal bony lucencies ar e seen. DATA REPOSITORY: RADIATION DOSE DELIVERED:
== END 2020-11-06 10:52 | disposition home or self-care (01) ==
LOC: DIORS 10:52
PROVIDERS: PCP Family Medicine; Referring Provider Family Medicine; Visit Provider Physician Assistant
DX: Z96.641 Presence of right artificial hip joint (principal)
CPT/HCPCS: 73502

== ENCOUNTER 2020-12-07 15:34 | Outpatient (REF) | payer OTHER, SELFPAY ==
[2020-12-07 16:07] LABS: Anion Gap 10.7 mmol/L (3-11); BUN 31 mg/dL (7-18); CO2 27.3 mmol/L (21.0-32.0); CREATININE 1.6 mg/dL (0.55-1.02); Calcium 10.1 mg/dL (8.5-10.1); Chloride 103 mmol/L (98-107); Estimated GFR 32.45 (mL/min/1.73m2); Glucose 133 mg/dL (74-106); Sodium 141 mmol/L (136-145)
== END 2020-12-07 15:35 | disposition home or self-care (01) ==
LOC: NCHCN 15:34
PROVIDERS: PCP Family Medicine; Visit Provider Family Medicine
DX: I10 Essential (primary) hypertension (principal); E87.5 Hyperkalemia; N18.4 Chronic kidney disease, stage 4 (severe)
CPT/HCPCS: 80048

== ENCOUNTER 2021-07-05 02:01 | Outpatient (CLI) | payer OTHER, SELFPAY ==
[2021-07-05 12:47] LABS: Source Nasal/Nares
[2021-07-05 18:06] LABS: COVID-19 PCR Negative (Negative)
== END 2021-07-05 02:02 | disposition home or self-care (01) ==
LOC: LBO 02:01
PROVIDERS: PCP Family Medicine; Visit Provider Student in an Organized Health Care Education/Training Program
DX: Z20.822 Contact with and (suspected) exposure to COVID-19 (principal); Z01.818 Encounter for other preprocedural examination
CPT/HCPCS: 87635

== ENCOUNTER 2021-07-07 06:16 | Day surgery (SDC) | payer OTHER, SELFPAY ==
[2021-07-07 06:30] VITALS: BP 141/70; PULSE 93; RESP 16; TEMP 36.7; O2SAT 97
[2021-07-07] MEDS: Lactated Ringers 1,000 ML 80 ML IV (07:00)
--- NOTE | 2021-07-07 07:07 | W.ANESPRE ---
General Info Date of Service Date Performed: 07/07/21 Height: 5 ft 5 in Weight: 126.2 kg Body Mass Index (BMI): 46.3 Surgical Procedure: Operation Date: 07/07/21 07:40 Proposed Procedures Side Surgeon p Wrist ECTR Left Jacky Dash MD Meds Allergies and Home Medications Allergies Allergy/AdvReac Type Severity Reaction Status Date / Time amoxicillin Allergy Unknown Verified 07/06/21 11:06 sulfamethoxazole Allergy Unknown Verified 07/06/21 11:06 [From Bactrim] trimethoprim [From Bactrim] Allergy Unknown Verified 07/06/21 11:06 oxycodone AdvReac Intermediate HALLUCINATI Verified 07/06/21 11:06 ONS Penicillins AdvReac RASH Verified 07/06/21 11:06 Sulfa (Sulfonamide AdvReac RASH Verified 07/06/21 11:06 Antibiotics) Home Medication Medication Instructions Recorded atorvastatin [Lipitor] 10 mg PO DAILY tab-cap 12/06/13 lisinopril 10 mg tablet 5 mg PO DAILY tab-cap 04/06/20 glipizide 10 mg tablet 5 mg PO DAILY tab-cap 06/22/20 Januvia 25 mg PO DAILY 07/09/20 acetaminophen 1,000 mg PO Q8H PRN #90 tab 10/21/20 aspirin 81 mg tablet,delayed 81 mg PO DAILY 07/01/21 release hydrocodone-acetaminophen 1 tab PO Q6H PRN #3 tab 07/07/21 ibuprofen 600 mg PO TID PRN #90 tab 07/07/21 Current Visit Medications: Current Medications Generic Name Dose Route Start Last Admin Trade Name Freq PRN Reason Stop Dose Admin Ringer's Solution 1,000 mls @ 80 mls/hr 07/07/21 06:00 IV 07/25/21 23:59 INFUSION AMANDA Cefazolin Sodium 3,000 mg/ 100 mls @ 200 mls/hr 07/07/21 06:00 Sodium Chloride IVPB 07/07/21 23:59 PREOP AMANDA IV Miscellaneous Supplies 1 each 07/07/21 06:00 Iv Access IV 07/25/21 23:59 DIRECTED AMANDA Sodium Chloride 0 ml 07/07/21 06:00 Normal Saline Flush 10 Ml Syr IV 07/25/21 23:59 PRN PRN Sodium Chloride 0 ml 07/07/21 06:00 Normal Saline 10 Ml Vial IJ 07/25/21 23:59 DIRECTED PRN Sterile Water 0 ml 07/07/21 06:00 Water,Injection,Sterile 10 Ml Vial IJ 07/25/21 23:59 DIRECTED PRN PFSH Active Problems Active Problems: Problem Status Onset Code Left carpal tunnel syndrome G56.02 History of total right hip replacement 10/21/20 Z96.641 Diverticular disease Sciatica Diabetes mellitus Iliotibial band syndrome Chronic kidney disease, stage 3 Actinic keratitis Hypothyroidism Left tibialis posterior tendonitis Irritable bowel syndrome with diarrhea Adult body mass index greater than 30 Right hip pain Ulcerative colitis Asthma Arthroscopy, Shoulder 03/04/16 Colonoscopy - IV Sedation Repair of umbilical hernia Rotator Cuff Repair Replacement of total knee joint Leukoplakia oral mucosa 12/04/14 K13.21 Spondylosis of lumbar region without myelopathy or radiculopathy M47.816 Medical History Medical History Actinic keratitis Adult body mass index greater than 30 Asthma Chronic kidney disease, stage 3 Diabetes mellitus controlled with oral agents Diverticular disease Essential hypertension HTN (hypertension) Hypothyroidism Iliotibial band syndrome Irritable bowel syndrome with diarrhea Left tibialis posterior tendonitis Right hip pain Sciatica Ulcerative colitis Surgical History Surgical History (Updated 07/07/21 @ 07:30 by LLUVIA Stroud) Arthroscopy, Shoulder (03/04/16) RIGHT SHOULDER/DR. ANTONIO Colonoscopy - IV Sedation frequently secondary to imflammatory bowel dz 2015 - nl. will begin routine schedule of surveillence H/O foot surgery History of total right hip replacement (10/21/20) Left carpal tunnel syndrome S/P ECTR: 07/07/2021 Repair of umbilical hernia 2007 Replacement of total knee joint bilateral knee replacements Rotator Cuff Repair 10/2011 Tobacco Smoking/Tobacco Use Status: Former Tobacco Use Alcohol Alcohol Intake: never Substance Use Substance use: Never Substance use type: does not use Prental History History 2 Para Hx # Term Pregnancies 2 Multiple births Hx # Pregnancies Ectopic pregnancies AB induced Hx Number of Living Children AB spontaneous Vital Signs and Lab Results Vital Signs Most Recent Vital Signs in EMR: Most Recent Vital Signs Temp Pulse Resp BP Pulse Ox 36.7 C 93 H 16 141/70 H 97 07/07/21 06:30 07/07/21 06:30 07/07/21 06:30 07/07/21 06:30 07/07/21 06:30 Lab Results Blood Type / Crossmatch: No Data to Display Complete Blood Count: No Data to Display Complete Metabolic Panel: No Data to Display Liver Function Panel: No Data to Display Coagulation Panel: No Data to Display Cardiac Panel: No Data to Display Arterial Blood Gas: No Data to Display Venous Blood Gas: No Data to Display Pancreas Panel: No Data to Display Thyroid Panel: No Data to Display Infectious Disease: Coronavirus (COVID-19)(PCR) Negative (Negative) 07/05/21 10:46 07/05/21 Coronavirus 2019 Source Nasal/Nares 07/05/21 10:46 07/05/21 Blood Cultures: No Data to Display Toxicology Panel: No Data to Display Anesthesia Assessment and Plan Anesthesia History Personal History: No History of Anesthesia Complications Family History: No Family History of Anesthesia Complications Exercise Tolerance Exercise Tolerance: Metabolic Equivalents>4 Pertinent Negatives Pertinent Negatives: No Symptoms of GERD, No Major Cardiovascular Symptoms or Complaints, No Major Pulmonary Symptoms or Complaints (Patient denies asthma sx) and No History of CVA/TIA Cardiac & Pulmonary Exam Cardiac Exam: Normal S1/S2 Heart Sounds Pulmonary Exam: Clear Bilateral Breath Sounds Airway Exam Known Difficult Airway: No Mallampati Class: 2 Mouth Opening: Normal (> 3cm) Thyromental Distance: Greater than 3 cm Neck Range of Motion: Full ROM Neck Circumference: Normal Teeth Condition: Normal Dentition ASA Classification ASA Score: ASA 3 Emergency Case?: No NPO Status NPO Status: NPO Clears >2 hours, Solids >8 hours Anesthesia Plan Resuscitation Status: Full Code Anesthesia Technique: General Anesthesia Airway Planned: Endotracheal Tube Monitors Used: Standard Monitors
--- NOTE | 2021-07-07 07:30 | PDOC.DSDIS_ITS ---
Discharge Plan Disposition Patient Disposition: HOME Condition: Good Discharge Details Reason For Visit: L ECTR Attending Provider: Jacky Dash Primary Care Provider: Gumaro Roberson [place] Meds and New Rx's Prescriptions: New hydrocodone-acetaminophen 5-325 mg tablet 1 tab PO Q6H PRN (Reason: pain) Qty: 3 RF: 0 ibuprofen 600 mg tablet 600 mg PO TID PRN (Reason: pain) Qty: 90 RF: 0 Continued aspirin [Adult Aspirin Regimen] 81 mg tablet,delayed release (DR/EC) 81 mg PO DAILY RF: 0 atorvastatin [Lipitor] 10 MG tablet 10 mg PO DAILY RF: 0 lisinopril 10 mg tablet 5 mg PO DAILY RF: 0 glipizide 10 mg tablet 5 mg PO DAILY RF: 0 Januvia 25 mg Tablet 25 mg PO DAILY RF: 0 acetaminophen 500 mg tablet 1,000 mg PO Q8H PRN (Reason: pain) Qty: 90 RF: 3 Discharge Instructions Stand Alone Forms: Ekta Ridley Tunnel Release Activity:: Activity as Tolerated Remove Dressings/Wound Care:: 48 hours Shower/Bathe:: 48 hours Diet:: As Tolerated Discharge Orders Discharge Orders: Discharge Order (Routine); Ordered 07/07/21 Ordered By: Pratik Nazario DS: Diagnosis Discharge Diagnosis (1) Left carpal tunnel syndrome: Status: Acute
[2021-07-07] MEDS: ceFAZolin 3,000 MG in Normal Saline 100 ML 200 MG IVPB (07:33)
[2021-07-07] MEDS: Sodium Bicarbonate 50 MEQ/50 ML VIAL (07:38)
[2021-07-07 07:41] VITALS: BMI 46.3
[2021-07-07 07:52] VITALS: BP 131/77; PULSE 92; RESP 16; TEMP 36.7; O2SAT 94
[2021-07-07 08:19] VITALS: BP 134/75; PULSE 83; RESP 16; TEMP 36.8; O2SAT 96
--- NOTE | 2021-07-07 09:09 | W.ANESPOSTOP ---
Postoperative Evaluation Date, Time and Location Date Performed: 07/07/21 Time Performed: 09:09 Patient Location: Day Surgery Unit Vital Signs Most Recent Imported Vital Signs: Most Recent Vital Signs Temp Pulse Resp BP Pulse Ox 36.8 C 83 16 134/75 96 07/07/21 08:19 07/07/21 08:19 07/07/21 08:19 07/07/21 08:19 07/07/21 08:19 Pain Score Most Recent Pain Score: Most Recent Pain Score Pain Level 0 07/07/21 08:19 Assessment Mental Status: Awake (Alert & Oriented to Patient Baseline) Airway and Respiratory Function: Patent airway with normal (patient baseline) respiratory exam Cardiovascular Function: Hemodynamically Stable Hydration Status: Adequately Hydrated Nausea & Vomiting: No Nausea or Vomiting Pain: Pt. Denies Any Pain Peripheral Nerve Block: Patient did not receive a nerve block
--- NOTE | 2021-07-08 06:50 | W.PM.OP ---
Date of service: 07/07/21 Time of Service: 07:50 Operative Note Operative Note DATE OF PROCEDURE: 07/08/21 PRE-OP DIAGNOSIS: Left Carpal Tunnel Syndrome POST-OP DIAGNOSIS: same PROCEDURE: Left Endoscopic Carpal Tunnel Release SURGEON: Jacky Dash ANESTHESIA TYPE: General:No Airway Refer to Anesthesia Record ESTIMATED BLOOD LOSS: 0 PATHOLOGY: none sent TOURNIQUET TIME: 6 COMPLICATIONS: None Patient was transported to: same day Patient's condition: stable Indications: I have seen Angelina in clinic for symptoms of carpal tunnel syndrome. The numbness, tingling, and pain limited function. Clinical exam findings with nerve conduction tests confirmed the diagnosis of carpal tunnel syndrome. Nonoperative measures such as bracing, time, activity modifications had been tried but disability and pain persisted. I discussed carpal tunnel release with the patient. I reviewed the risks of the procedure to include, but not limited to, bleeding, infection, pain, stiffness, incomplete release, damage to nerves or vessels, persistent numbness, recurrence. Despite these risks, the patient elected to proceed. Findings: There was tightened carpal tunnel. This was dilated and released successfully with the endoscopic with increased space within the tunnel. The antebrachial fascia was released proximally freeing the median nerve at the wrist. Procedure Description: Angelina was greeted in the preoperative holding area where the correct side was identified and marked. The consent was reviewed with the patient and signed. The history and physical was updated. All questions were answered. Angelina was taken back to the operating room. The patient was placed into the supine position on the operating room table with the left arm on an arm board. A nonsterile tourniquet was placed high onto the arm. All bony prominences were well padded. Prophylactic antibiotics in the form of Cefazolin were administered. The left arm was then prepped with Chloraprep and draped in a standard fashion with stockinette and extremity drape. A timeout to confirm correct identity, side and site, procedure, allergies, anesthesia, and medical concerns was performed. The surgical site was marked in the volar wrist creases in line with the radial border of the fourth ray. This area was anesthetized with approximately 6cc of 1% Lidocaine. The limb was then exsanguinated with an Esmarch. The skin was incised with a 15 blade, approximately 1cm. The skin only was cut and the deeper tissue was dissected bluntly with a tenotomy scissor, avoiding passing nerve and venous structures. The fascia was penetrated and opened bluntly. A two-prong skin hook was placed under this proximal fascial edge. A series of hamate finders were used to identify and dilate the carpal tunnel. Synovial elevator was used to free synovial attachments to the underside of the transverse carpal ligament. My thumb was kept in the palm to balwinder the distal extent of the carpal tunnel and correctly position the hand. The [employer] endoscope was inserted without difficulty and without resistance. Excellent visualization showed horizontally running fibers of the transverse carpal ligament (TCL). The distal extent of the TCL was visualized and the end of the scope palpated with the thumb. The blade was elevated and withdrawn from distal to proximal. The TCL was split into two flaps. The endoscope was reinserted to confirm complete release and any remnant ligament was incised. The scope was withdrawn and the proximal aspect of the carpal tunnel was grossly inspected and appeared release with the median nerve visible. The antebrachial fascia at the level of the wrist was then freed from the overlying skin and then the underlying median nerve with blunt dissection. This was transected longitudinally for about 3cm proximal to the wrist incision. The wound was then irrigated with easy flow of irrigant distally and proximally. The incision was closed with a single 4-0 Nylon suture. The wound was dressed with Xeroform, Gauze, Kerlix and Ronald. The tourniquet was deflated with the initial dressing and held with some pressure. Blood flow returned easily to all digits with capillary refill less than 2 seconds. The patient tolerated the procedure well and was returned to the Same Day Surgery area in a stable condition suffering no known complication.
== END 2021-07-07 09:14 | disposition home or self-care (01) ==
PROVIDERS: PCP Family Medicine; Visit Provider Student in an Organized Health Care Education/Training Program
PROC: 01N54ZZ Release Median Nerve, Percutaneous Endoscopic Approach (ICD-10-PCS; CPT 29848; principal; 2021-07-07 07:30)
DX: G56.02 Carpal tunnel syndrome, left upper limb (principal); I10 Essential (primary) hypertension; E78.5 Hyperlipidemia, unspecified; E11.9 Type 2 diabetes mellitus without complications
CPT/HCPCS: 29848; J0690; J2001

== ENCOUNTER 2021-10-03 08:44 | Emergency (ER) | payer OTHER, SELFPAY ==
[2021-10-03] VITALS (8 sets, daily range): BP systolic 137–151; BP diastolic 67–84; PULSE 95–113; RESP 16; TEMP 36.3; O2SAT 95–98
--- NOTE | 2021-10-03 08:45 | RT.EKG_ITS ---
APPROVED REPORT Exam: Resting ECG Reason for Exam: sob Patient Location: E HR:105 bpm ECG Measurements Heart Rate 105 AXIS AR 182 P 63 QRSd 88 QRS 30 QT 336 T [id number] QTc 444 Conclusion Sinus tachycardia...rate> 99
--- NOTE | 2021-10-03 09:30 | ED.GENADUL_ITS ---
Discharge Plan Disposition Patient Disposition: HOME Condition: Improving Discharge Details Clinical Impression: Acute bronchitis Primary Care Provider: Gumaro Roberson ED Provider: Max White Home Meds and New Rx's Prescriptions: New azithromycin 250 mg tablet See Rx Instructions .ROUTE .COMPLEX Qty: 6 RF: 0 guaifenesin [Mucinex] 600 mg tablet extended release 12hr 600 mg PO Q12H PRNQty: 10 RF: 0 Continued aspirin [Adult Aspirin Regimen] 81 mg tablet,delayed release (DR/EC) 81 mg PO DAILY RF: 0 atorvastatin [Lipitor] 10 MG tablet 10 mg PO DAILY RF: 0 lisinopril 10 mg tablet 25 mg PO DAILY RF: 0 glipizide 10 mg tablet 5 mg PO DAILY RF: 0 Januvia 25 mg Tablet 50 mg PO DAILY RF: 0 acetaminophen 500 mg tablet 1,000 mg PO Q8H PRN (Reason: pain) Qty: 90 RF: 3 hydrocodone-acetaminophen 5-325 mg tablet 1 tab PO Q6H PRN (Reason: pain) Qty: 3 RF: 0 ibuprofen 600 mg tablet 600 mg PO TID PRN (Reason: pain) Qty: 90 RF: 0 Discharge Instructions Instructions: Acute Bronchitis (ED) Additional Instructions: Please take medications as prescribed. Return to the emergency room for any acute concerns. You will receive a call regarding the results of your COVID-19 test. Stand Alone Forms: PENDING COVID-19 TESTING Medical Decision Making 66-year-old female presents emergency department with 4 to 5 days of cough, congestion, mild sinus pressure. She has no known sick contacts. Denies chest pain or shortness of breath, no wheezing. On exam she is oxygenating 96-98 on room air. She has been recovering from left foot and ankle surgery after using her walker from car to the room, her pulse was approximately 105, this corrected with rest. She denies any leg pain or swelling. Most consistent with acute bronchitis. Must exclude viral process, underlying consolidated pneumonia. With her mild exertional tachycardia, patient underwent screening EKG. screening COVID-19 test obtained. Referred for x-ray. EKG reveals sinus rhythm. COVID-19 is pending. Chest x-ray no acute findings. I will treat her for bronchitis. She is stable and appropriate for outpatient management. HPI General Mode of arrival: ambulatory . Date/Time Provider Initiated Documentation: 10/03/21 08:45 . Limitations to Documentation: no limitations . Information obtained by: patient . History of Present Illness 66 year old F presents to the emergency department with the chief complaint of 4 to 5 days of cough, congestion, described as moderate, and is localized to the chest. Patient reports no radiation. Patient started experiencing this day(s) and it has been intermittent. No relieving factors improve symptom(s), No exacerbating factors reported . Patient notes cough and other (Body ache, mild sinus pressure); denies chest pain and shortness of breath. Related Data Home Medications Medication Instructions Recorded Confirmed atorvastatin [Lipitor] 10 mg PO DAILY tab-cap 12/06/13 10/03/21 lisinopril 10 mg tablet 25 mg PO DAILY tab-cap 04/06/20 10/03/21 glipizide 10 mg tablet 5 mg PO DAILY tab-cap 06/22/20 10/03/21 Januvia 50 mg PO DAILY 07/09/20 10/03/21 acetaminophen 1,000 mg PO Q8H PRN #90 tab 10/21/20 10/03/21 aspirin 81 mg tablet,delayed 81 mg PO DAILY 07/01/21 10/03/21 release hydrocodone-acetaminophen 1 tab PO Q6H PRN #3 tab 07/07/21 10/03/21 ibuprofen 600 mg PO TID PRN #90 tab 07/07/21 10/03/21 azithromycin See Rx Instructions .ROUTE 10/03/21 .COMPLEX #6 tab guaifenesin [Mucinex] 600 mg PO Q12H PRN #10 tab 10/03/21 Previous Rx's Medication Instructions Recorded acetaminophen 1,000 mg PO Q8H PRN #90 tab 10/21/20 hydrocodone-acetaminophen 1 tab PO Q6H PRN #3 tab 07/07/21 ibuprofen 600 mg PO TID PRN #90 tab 07/07/21 azithromycin See Rx Instructions .ROUTE 10/03/21 .COMPLEX #6 tab guaifenesin [Mucinex] 600 mg PO Q12H PRN #10 tab 10/03/21 Allergies Allergy/AdvReac Type Severity Reaction Status Date / Time amoxicillin Allergy Unknown Skin Rash Verified 10/03/21 09:01 sulfamethoxazole Allergy Unknown Skin Rash Verified 10/03/21 09:01 [From Bactrim] trimethoprim [From Bactrim] Allergy Unknown Skin Rash Verified 10/03/21 09:01 oxycodone AdvReac Intermediate HALLUCINATI Verified 10/03/21 09:01 ONS Penicillins AdvReac RASH Verified 10/03/21 09:01 Sulfa (Sulfonamide AdvReac RASH Verified 10/03/21 09:01 Antibiotics) General Stated Complaint: RespSymp MARLYS: 3 Review of Systems Narrative: No known sick contacts. Mild anxiety regarding COVID. Immunized against COVID x2. Follow-up this week in primary care clinic already scheduled. 8 systems reviewed and otherwise negative PFSH All Active Problems (Updated 10/03/21 @ 11:08 by Max White MD) Acute bronchitis (Acute) Left carpal tunnel syndrome (Acute) S/P ECTR: 07/07/2021 History of total right hip replacement (Acute 10/21/20) Diverticular disease (Chronic) Sciatica (Chronic) Diabetes mellitus (Chronic) controlled with oral agents Iliotibial band syndrome (Chronic) Chronic kidney disease, stage 3 (Chronic) Actinic keratitis (Chronic) Hypothyroidism (Chronic) Left tibialis posterior tendonitis (Chronic) Irritable bowel syndrome with diarrhea (Chronic) Adult body mass index greater than 30 (Chronic) Right hip pain (Chronic) Ulcerative colitis (Chronic) Asthma (Chronic) Leukoplakia oral mucosa (Acute 12/04/14) This could be secondary to friction, lichen planus, or potentially thrush. I suspect it is secondary to friction between the cheek and the teeth. Spondylosis of lumbar region without myelopathy or radiculopathy (Chronic) Medical History Essential hypertension HTN (hypertension) Surgical History H/O foot surgery Family History Brother Myocardial infarction sudden episode Mother Chronic obstructive lung disease Father Alzheimer's disease aunt Personal history of malignant neoplasm Social History Smoking/Tobacco Use Status: Former Tobacco Use Quit Date: 09/25/79 Smoking risk assessment performed?: Yes Alcohol Intake: never Drug use: Never Substance use type: does not use Household members: spouse and other Details: Ankita Number of Children: 2 number of grandchildren: 4 current occupation: 2018 retired [employer] Current gender identity: female What type of physical activity do you participate in: sedentary lifestyle and additional Details: Was physically active prior to injury of the foot Special crow needs: No Seatbelt use: always Do you feel safe at home: Yes Do you feel safe in your relationship?: Yes Additional Social history: . Female Reproductive History Menstrual Menopause type: natural History History 2 Para Hx # Term Pregnancies 2 Multiple births Hx # Pregnancies Ectopic pregnancies AB induced Hx Number of Living Children AB spontaneous Exam Narrative Exam Narrative: GEN: awake, alert, oriented 3. Pleasant, well groomed, interactive. HEAD: Normocephalic, atraumatic ENT: Mucous membranes moist, oropharynx unremarkable, External ear exam unremarkable EYES: PERRL, EOMI NECK: Full ROM, no BLOSSOM, no menigismus CHEST/RESP: Distant, nontender, clear to auscultation bilateral, no wheeze/rhonchi/rales CARDIOVASCULAR: RRR, no murmur, rub swati. 2+ Rad pulse bilateral ABDOMEN: Soft, nontender, no mass. +Bowel sounds EXT: Full ROM, left foot and ankle in walking boot Neuro: Grossly normal neurologic exam, conversant, interactive. Psych: Speech fluent, thoughts congruent, affect normal Course Vital Signs Vital signs: Vital Signs Temperature 36.3 C L 10/03/21 08:57 Pulse 110 H 10/03/21 08:57 Respiratory Rate 16 10/03/21 08:57 Blood Pressure 151/67 H 10/03/21 08:57 Pulse Oximetry 96 10/03/21 08:57 Temperature 36.3 C L 10/03/21 08:57 Temperature Source Skin 10/03/21 08:57 Pulse 102 H 10/03/21 09:23 Respiratory Rate 16 10/03/21 09:23 Respiratory Effort 10/03/21 08:57 Blood Pressure 151/67 H 10/03/21 08:57 Blood Pressure Position Sitting 10/03/21 08:57 Pulse Oximetry 98 10/03/21 09:23 Oxygen Delivery Method Room Air 10/03/21 09:23 Oxygen Flow Rate 0 10/03/21 09:23 Pain Level 0 10/03/21 08:57
--- NOTE | 2021-10-03 09:30 | DI.RAD_ITS ---
Exam(s) XR PORTABLE CHEST AP EXAM: XR PORTABLE CHEST AP CLINICAL HISTORY: PUI. 5 days of cough TECHNIQUE: 2D digital imaging was performed. COMPARISON: No exams were available for comparison FINDINGS: LUNGS: Under penetration at the lung bases. The lungs appear clear where visualized. No pleural abn ormality seen. HEART: Normal. MEDIASTINUM: Normal. BONES: Unremarkable. IMPRESSION: No acute pulmonary findings. DATA REPOSITORY: RADIATION DOSE DELIVERED:
--- NOTE | 2021-10-03 10:00 | DI.VRAD_ITS ---
PROCEDURE INFORMATION: Exam: XR Chest Exam date and time: 10/03/2021 9:31 AM Age: 66 years old Clinical indication: Cough TECHNIQUE: Imaging protocol: XR of the chest. Views: 1 view. COMPARISON: MR SHOULDER 01/12/2016 9:01 AM FINDINGS: Lungs: Unremarkable. No consolidation. Pleural spaces: Unremarkable. No pleural effusion. No pneumothorax. Heart/Mediastinum: Unremarkable. No cardiomegaly. Vasculature: Aortic calcifications. Bones/joints: Degenerative arthritis in the shoulders and spine. IMPRESSION: No acute findings Dictated and Authenticated by: Wen Castillo MD. Ordering:KHOI Santana MD
[2021-10-04 11:37] LABS: COVID-19 RT-PCR UVMMC Result Negative (Negative)
== END 2021-10-03 11:31 | disposition home or self-care (01) ==
PROVIDERS: Emergency Provider Emergency Medicine; PCP Family Medicine
DX: J20.9 Acute bronchitis, unspecified (principal); R05.1 Acute cough; R06.02 Shortness of breath; Z20.822 Contact with and (suspected) exposure to COVID-19
CPT/HCPCS: 93005; 99283; U0003; 71045; 93010

== ENCOUNTER 2021-10-06 14:59 | Outpatient (REF) | payer OTHER, MEDICARE, SELFPAY ==
[2021-10-06 19:56] LABS: Anion Gap 10.7 mmol/L (3-11); BUN 22 mg/dL (7-18); CO2 28.3 mmol/L (21.0-32.0); CREATININE 1.7 mg/dL (0.55-1.02); Calcium 9.9 mg/dL (8.5-10.1); Chloride 102 mmol/L (98-107); Estimated GFR 30.16 (mL/min/1.73m2); Glucose 145 mg/dL (74-106); Magnesium 1.3 mg/dL (1.8-2.4); PHOSPHORUS 3.4 mg/dL (2.6-4.7); Sodium 141 mmol/L (136-145)
[2021-10-06 19:57] LABS: Hemoglobin A1C 7.1 % (<5.7)
[2021-10-08 10:05] LABS: Parathyroid Hormone,Intact 43 pg/mL (19-88)
== END 2021-10-06 15:00 | disposition home or self-care (01) ==
LOC: NCHCN 14:59
PROVIDERS: PCP Family Medicine; Visit Provider Family Medicine
DX: N18.32 Chronic kidney disease, stage 3b (principal); E11.29 Type 2 diabetes mellitus with other diabetic kidney complication
CPT/HCPCS: 80048; 83036; 83735; 83970; 84100

== ENCOUNTER 2021-11-05 09:57 | Outpatient (CLI) | payer OTHER, SELFPAY ==
--- NOTE | 2021-11-05 09:00 | DI.RAD_ITS ---
Exam(s) XR HIP RT AP LAT ONLY EXAM: XR HIP RT AP LAT ONLY CLINICAL HISTORY: annaul f/u R GURPREET. TECHNIQUE: 2D digital imaging was performed of the right hip. Two images were obtained. AP pelvis a nd lateral right hip views were obtained. COMPARISON: CR XR HIP RT COMPLETE AP PELVIS from 11/06/2020 FINDINGS: BONES: No acute fracture is present. No bony destructive lesion is seen. JOINTS: No dislocation present. There are stable postsurgical changes of a right total hip replacemen t. No evidence of hardware failure. SOFT TISSUE: Normal. IMPRESSION: Stable postsurgical changes of a right hip prosthesis. DATA REPOSITORY: RADIATION DOSE DELIVERED:
== END 2021-11-05 09:58 | disposition home or self-care (01) ==
LOC: DIORS 09:57
PROVIDERS: PCP Family Medicine; Referring Provider Family Medicine; Visit Provider Student in an Organized Health Care Education/Training Program
DX: Z96.641 Presence of right artificial hip joint (principal); Z47.1 Aftercare following joint replacement surgery
CPT/HCPCS: 73502

== ENCOUNTER 2021-12-21 01:24 | Outpatient (CLI) | payer OTHER, SELFPAY ==
--- NOTE | 2021-12-21 | DI.MAMMO_ITS ---
Exam(s) MAMMO SCREENING EXAM: MAMMO SCREENING CLINICAL HISTORY: SCREENING FOR BREAST CANCER Z12.31 TECHNIQUE: Bilateral full field digital CC and MLO mammographic images were obtained with 3D tomosyn thesis and utilizing computer aided detection (CAD). COMPARISON: Available for comparison. FINDINGS: Masses/Architectural Distortion: The well-circumscribed nodule in the upper outer quadrant of the rig ht breast appears stable. No suspicious masses or areas of architectural distortion are present. Microcalcifications: No suspicious pleomorphic-type are seen. Skin Thickening/Nipple Retraction: None. IMPRESSION: 1. No significant interval change with no specific features of malignancy noted. 2. Unless there is more urgent need, screening mammography is recommended, as per [place] [employer] guidelines. BI-RADS Category 1 - Negative Breast Density - Category B - Scattered areas of fibroglandular density Breast density category C or D implies that the patient has dense breast tissue. Dense breast tissue is very common and is not abnormal but dense breast tissue can make it harder to find cancer on a ma mmogram. Also, dense breast tissue may increase their breast cancer risk. This information about the result of the mammogram report was provided to the patient to raise their awareness. Use this report when you speak with the patient about their risks for breast cancer, which includes their family hist ory. At that time, you may recommend for more screening tests (Ultrasound or MRI) as they might be us eful based on their risk. A negative radiographic report should not delay biopsy if a dominant or clinically suspicious mass is present. Up to ten percent of cancers are not identified on mammography. A negative report may reinforce clinical impression. Adenosis and dense breasts may obscure an underlying neoplasm. False positive reports average 6 to 10%. Patient will receive a letter notifying them of these results.
== END 2021-12-21 01:44 ==
PROVIDERS: PCP Family Medicine; Visit Provider Family Medicine
DX: Z12.31 Encounter for screening mammogram for malignant neoplasm of breast (principal)
CPT/HCPCS: 77063; 77067

== ENCOUNTER 2022-02-10 19:05 | Outpatient (REF) | payer SELFPAY ==
[2022-02-12 11:46] LABS: COVID-19 RT-PCR UVMMC Result Negative (Negative)
== END 2022-02-10 19:06 | disposition home or self-care (01) ==
LOC: LBN 19:05
PROVIDERS: PCP Family Medicine; Visit Provider Physician Assistant Medical
DX: Z20.822 Contact with and (suspected) exposure to COVID-19 (principal); H93.8X3 Other specified disorders of ear, bilateral
CPT/HCPCS: U0003

== ENCOUNTER 2022-04-04 13:41 | Outpatient (REF) | payer MEDICARE, SELFPAY ==
[2022-04-04 14:39] LABS: HCT 42.5 % (36.0-46.0); HGB 13.4 g/dL (11.2-15.7); MCH 29.5 pg (27.0-33.0); MCHC 31.5 % (32.0-36.0); MCV 93 fL (80-95); MPV 10.6 fL (8.0-11.0); Platelet Count 277 10^3/uL (130-400); RBC 4.55 10^6/uL (3.93-5.22); RDW 14.6 % (11.7-14.6); WBC 9.15 10^3/uL (4.4-10.8)
[2022-04-04 15:26] LABS: ALT 19 U/L (14-59); AST 25 U/L (15-37); Albumin 3.7 g/dL (3.4-5.0); Alkaline Phosphatase 97 U/L (46-116); Anion Gap 10.1 mmol/L (3-11); BUN 25 mg/dL (7-18); Bilirubin, Total 0.5 mg/dL (0.2-1.0); CO2 28.9 mmol/L (21.0-32.0); CREATININE 1.7 mg/dL (0.55-1.02); Calcium 9.6 mg/dL (8.5-10.1); Calculated LDL 74 mg/dL (<100); Chloride 97 mmol/L (98-107); Cholesterol 140 mg/dL (<200); Estimated GFR 30.16 (mL/min/1.73m2); Glucose 149 mg/dL (74-106); HDL Cholesterol 53 mg/dL (40-60); Magnesium 1.7 mg/dL (1.8-2.4); Potassium 4.5 mmol/L (3.5-5.1); Sodium 136 mmol/L (136-145); Total Protein 8.1 g/dL (6.4-8.2); Triglyceride 67 mg/dL (<150); Vitamin B12 804 pg/mL (193-986)
[2022-04-04 15:42] LABS: PHOSPHORUS 3.7 mg/dL (2.6-4.7)
[2022-04-04 23:36] LABS: Parathyroid Hormone,Intact 68 pg/mL (19-88)
[2022-04-07 20:25] LABS: 1,25-Dihydroxyvitamin D 14 pg/mL (18-78)
== END 2022-04-04 13:42 | disposition home or self-care (01) ==
LOC: NCHCN 13:41
PROVIDERS: PCP Family Medicine; Visit Provider Family Medicine
DX: N18.32 Chronic kidney disease, stage 3b (principal); E78.5 Hyperlipidemia, unspecified; E03.9 Hypothyroidism, unspecified; E11.9 Type 2 diabetes mellitus without complications; E55.9 Vitamin D deficiency, unspecified
CPT/HCPCS: 80053; 80061; 85027; 82565; 82607; 82652; 83735; 83970; 84100; 84156

== ENCOUNTER 2022-04-29 11:11 | Outpatient (CLI) | payer MEDICARE, SELFPAY ==
--- NOTE | 2022-04-29 11:00 | DI.RAD_ITS ---
Exam(s) XR HIP LT COMPLETE AP PELVIS EXAM: XR HIP LT COMPLETE AP PELVIS CLINICAL HISTORY: left hip pain. TECHNIQUE: 2D digital imaging was performed of the left hip. Three views were obtained. AP pelvis and lateral left hip views were obtained. COMPARISON: CR XR HIP RT COMPLETE AP PELVIS from 11/06/2020 FINDINGS: BONES: No acute fracture is present. No bony destructive lesion is seen. JOINTS: No dislocation present. There is a right THR. The left hip is well maintained without signif icant degenerative changes present. SOFT TISSUE: Normal. IMPRESSION: 1. Unremarkable left hip. 2. Right THR. DATA REPOSITORY: RADIATION DOSE DELIVERED:
== END 2022-04-29 11:12 | disposition home or self-care (01) ==
LOC: DIORS 11:12
PROVIDERS: PCP Family Medicine; Referring Provider Family Medicine; Visit Provider Student in an Organized Health Care Education/Training Program
DX: Z96.641 Presence of right artificial hip joint; M70.62 Trochanteric bursitis, left hip
CPT/HCPCS: 20610; 73502; J1040

== ENCOUNTER 2022-12-19 02:39 | Outpatient (CLI) | payer MEDICARE, SELFPAY ==
[2022-12-19 14:12] LABS: Abs Immature Grans 0.04 10^3/uL (0.0-0.06); Absolute Lymphocyte Count 3.03 10^3/uL (1.2-3.4); Basophils % 0.8; Eosinophils % 2.4; HCT 40.2 % (36.0-46.0); HGB 13.1 g/dL (11.2-15.7); Immature Grans % 0.3; Lymphocytes % 23.8; MCHC 32.6 % (32.0-36.0); MCV 92 fL (80-95); MPV 9.6 fL (8.0-11.0); Monocytes % 6.8; Neutrophils % 65.9; Platelet Count 256 10^3/uL (130-400); RBC 4.37 10^6/uL (3.93-5.22); RDW 14.1 % (11.7-14.6); RDW-SD 47.8 fL; WBC 12.74 10^3/uL (4.4-10.8)
[2022-12-19 14:13] LABS: Absolute Eosinophil Count 0.31 10^3/uL (0.0-0.7); Absolute Monocyte Count 0.87 10^3/uL (0.1-0.8)
[2022-12-19 15:01] LABS: COMMENT (LAB VIEW ONLY) 61.72 mg/dL; PROTEIN 15.7 mg/dL; Prot/Crea Ur Ratio 0.25
[2022-12-19 15:03] LABS: Microalb ug/mg Crea 40.4 ug/mg Cr
[2022-12-19 15:17] LABS: ALT 17 U/L (14-59); AST 15 U/L (15-37); Albumin 3.6 g/dL (3.4-5.0); Alkaline Phosphatase 102 U/L (46-116); Anion Gap 8.5 mmol/L (3-11); BUN 32 mg/dL (7-18); Bilirubin, Total 0.4 mg/dL (0.2-1.0); CO2 28.5 mmol/L (21.0-32.0); CREATININE 1.6 mg/dL (0.55-1.02); Calcium 9.9 mg/dL (8.5-10.1); Chloride 105 mmol/L (98-107); Estimated GFR 35.35 (mL/min/1.73m2); Glucose 146 mg/dL (74-106); Magnesium 1.9 mg/dL (1.8-2.4); PHOSPHORUS 3.9 mg/dL (2.6-4.7); Potassium 4.3 mmol/L (3.5-5.1); Sodium 142 mmol/L (136-145); TSH 1.78 uIU/mL (0.36-3.74); Uric Acid 7.2 mg/dL (2.6-6.0)
[2022-12-19 15:37] LABS: Iron 40 ug/dL (50-170); Total Iron Binding Capacity 282 ug/dL (250-450); Transferrin Sat 14 % (15-50)
[2022-12-19 16:07] LABS: Vitamin D 25 Total 33.2 ng/mL (30-100)
[2022-12-19 17:46] LABS: Ferritin 87 ng/mL (8-252)
[2022-12-20 18:41] LABS: Parathyroid Hormone,Intact 58 pg/mL (19-88)
== END 2022-12-19 02:40 | disposition home or self-care (01) ==
LOC: LBO 02:39
PROVIDERS: PCP Family Medicine; Visit Provider Internal Medicine Nephrology
DX: N18.4 Chronic kidney disease, stage 4 (severe) (principal); D64.9 Anemia, unspecified; E83.52 Hypercalcemia; E11.21 Type 2 diabetes mellitus with diabetic nephropathy; E03.9 Hypothyroidism, unspecified
CPT/HCPCS: 36415; 80053; 82306; 82043; 82565; 82570; 82728; 83036; 83540; 83550; 83735; 83970; 84100; 84156; 84443; 84550; 85025

== ENCOUNTER 2022-12-29 10:44 | Outpatient (CLI) | payer MEDICARE, SELFPAY ==
--- NOTE | 2022-12-29 10:15 | DI.RAD_ITS ---
Exam(s) XR HIP LT COMPLETE AP PELVIS EXAM: XR HIP LT COMPLETE AP PELVIS CLINICAL HISTORY: left hip pain. TECHNIQUE: 2D digital imaging was performed. COMPARISON: CR XR HIP LT COMPLETE AP PELVIS from 04/29/2022 FINDINGS: 3 views No evidence of pelvic nor hip fracture. Right hip prosthesis is noted. There are minimal degenerati ve changes in the left hip. No hip joint space narrowing. No osseous lesions. IMPRESSION: Minimal left hip findings. Right hip prosthesis. DATA REPOSITORY: RADIATION DOSE DELIVERED:
== END 2022-12-29 10:45 | disposition home or self-care (01) ==
LOC: DIORS 10:44
PROVIDERS: PCP Family Medicine; Referring Provider Family Medicine; Visit Provider Student in an Organized Health Care Education/Training Program
DX: M70.62 Trochanteric bursitis, left hip (principal); Z96.641 Presence of right artificial hip joint; M16.12 Unilateral primary osteoarthritis, left hip
CPT/HCPCS: 99213; 73502

== ENCOUNTER 2022-12-29 11:32 | Outpatient (CLI) | payer MEDICARE, SELFPAY ==
--- NOTE | 2022-12-29 13:35 | DI.RAD_ITS ---
Exam(s) RF JOINT INJECTION FLUORO GUID EXAM: RF JOINT INJECTION FLUORO GUID CLINICAL HISTORY: L HIP INJ UNDER FLUORO,trochanteric bursitis, m70.62 TECHNIQUE: Fluoroscopy provided. Radiologist not present. CONTRAST MATERIAL: None COMPARISON: No exams were available for comparison FINDINGS: Fluoroscopy was provided for Dr. Dash during left hip therapeutic injection.. Please refer to the procedure report for complete details. Cumulative Dose: Ka,r=1.22 mGy IMPRESSION: RADIATION DOSE DELIVERED:
[2022-12-29] MEDS: Bupivacaine 0.5% Pres-Free 10 ML VIAL 5 ML IJ (13:43)
[2022-12-29] MEDS: methylPREDNISolone ACETATE 80 MG/ML VIAL IM (13:43)
--- NOTE | 2022-12-29 13:49 | W.PROCNOTE ---
Date of service: 12/29/22 Time of Service: 13:35 Procedure Note Date of procedure: 12/29/22 Procedure: Left Hip Injection with Fluoroscopic Guidance Surgeon/Proceduralist/Physician: Jacky Dash Procedure Diagnosis: Left Hip Osteoarthritis Procedure Indications: Angelina has had persistent pain of the LEFT hip and groin. Noninvasive measures have been tried. To serve as both diagnostic and therapeutic, an injection under fluoroscopy was recommended. I had discussed the risks of the procedure and the patient elected to proceed. Procedure Description: Angelina was greeted in the flouroscopy room. The correct side was identified and the consent was reviewed with the patient and signed. The patient was then placed in the supine position on the fluoroscopy table. The LEFT hip was then prepped with Chloraprep. The anterolateral injection starting point was identiifed by bony landmarks and fluoroscopy. The skin and soft tissue in the tract of the injection was anesthetized with 1% Lidocaine. A spinal needle was then inserted deep into the hip joint at the level of the lateral femoral neck under fluoroscopic guidance. A small amount of Omnipaque solution was injected to confirm intraarticular placement. Once confirmed, the hip was injected with 5cc of 0.5% Bupivicaine and 80mg of Depo-Medrol. A bandaid was placed on the injection site. The patient tolerated the procedure well and noted improvement in pre-injection pain.
[2022-12-29 14:09] LABS: Abs Immature Grans 0.02 10^3/uL (0.0-0.06); Absolute Basophil Count 0.09 10^3/uL (0.0-0.2); Absolute Eosinophil Count 0.35 10^3/uL (0.0-0.7); Absolute Lymphocyte Count 2.92 10^3/uL (1.2-3.4); Absolute Monocyte Count 0.74 10^3/uL (0.1-0.8); Absolute Neutrophil Count 7.04 10^3/uL (1.2-6.7); Basophils % 0.8; Eosinophils % 3.1; HCT 41.8 % (36.0-46.0); HGB 13.3 g/dL (11.2-15.7); Immature Grans % 0.2; Lymphocytes % 26.2; MCH 29.6 pg (27.0-33.0); MCHC 31.8 % (32.0-36.0); MCV 93 fL (80-95); MPV 9.8 fL (8.0-11.0); Monocytes % 6.6; Neutrophils % 63.1; Platelet Count 252 10^3/uL (130-400); RBC 4.49 10^6/uL (3.93-5.22); RDW 14.2 % (11.7-14.6); RDW-SD 48.7 fL; WBC 11.16 10^3/uL (4.4-10.8)
[2022-12-29 22:41] LABS: Parathyroid Hormone,Intact 35 pg/mL (19-88)
[2022-12-30 10:31] LABS: IgA 265 mg/dL (85-499); IgG 1247 mg/dL (610-1616); IgM 97 mg/dL (35-242)
[2022-12-30 13:23] LABS: Albumin g/dL 3.9 g/dL (3.6-5.2); Total Protein 7.3 g/dL (6.3-8.2)
== END 2022-12-29 11:52 ==
LOC: DI 11:32
PROVIDERS: PCP Family Medicine; Visit Provider Student in an Organized Health Care Education/Training Program
DX: M70.62 Trochanteric bursitis, left hip (principal); N18.4 Chronic kidney disease, stage 4 (severe); M25.552 Pain in left hip
CPT/HCPCS: 20610; 36415; 77002; 82784; 83970; 84165; 85025; J1040

== ENCOUNTER 2023-02-08 00:57 | Outpatient (CLI) | payer MEDICARE, SELFPAY ==
--- NOTE | 2023-02-08 15:24 | DI.MAMMO_ITS ---
Exam(s) MAMMO SCREENING EXAM: MAMMO SCREENING CLINICAL HISTORY: SCREENING, Z12.39 TECHNIQUE: Mammograms were interpreted according to the usual protocol including computer analysis w eBuilder CAD system, tomosynthesis and C-view imaging. COMPARISON: 2013 through 2021 FINDINGS: The breasts are composed of mainly fatty density , Breast Density category A. No suspicious masses or suspicious microcalcifications are seen. Stable nodule upper outer quadrant right breast. No skin thickening or abnormal axillary lymph nodes are seen. There has been no significant change from prior exams. IMPRESSION: BI-RADS Cat 2 - Benign Findings Yearly screening mammography is recommended. Breast Density - Category A, fatty density. A negative radiographic report should not delay biopsy if a dominant or clinically suspicious mass is present. Up to ten percent of cancers are not identified on mammography. A negative report may reinforce clinical impression. Adenosis and dense breasts may obscure an underlying neoplasm. False positive reports average 6 to 10%. Patient will receive a letter notifying them of these results.
== END 2023-02-08 01:17 ==
PROVIDERS: PCP Family Medicine; Visit Provider Family Medicine
DX: Z12.31 Encounter for screening mammogram for malignant neoplasm of breast (principal)
CPT/HCPCS: 77063; 77067

== ENCOUNTER → 2023-03-03 10:59 | Outpatient (BNVA) | payer MEDICARE, SELFPAY | PROVIDERS: PCP Family Medicine; Referring Provider Family Medicine; Visit Provider Student in an Organized Health Care Education/Training Program | DX: M70.62 Trochanteric bursitis, left hip (principal); M16.12 Unilateral primary osteoarthritis, left hip | CPT/HCPCS: 99213 ==

== ENCOUNTER 2023-03-22 17:24 | Outpatient (REF) | payer MEDICARE, SELFPAY ==
[2023-03-22 19:55] LABS: Anion Gap 10.4 mmol/L (3-11); BUN 26 mg/dL (7-18); CO2 27.6 mmol/L (21.0-32.0); CREATININE 1.6 mg/dL (0.55-1.02); Calcium 9.6 mg/dL (8.5-10.1); Chloride 104 mmol/L (98-107); Estimated GFR 35.35 (mL/min/1.73m2); Glucose 87 mg/dL (74-106); Potassium 4.3 mmol/L (3.5-5.1); Sodium 142 mmol/L (136-145)
== END 2023-03-22 17:25 | disposition home or self-care (01) ==
LOC: NCHCN 17:24
PROVIDERS: PCP Family Medicine; Visit Provider Family Medicine
DX: N18.32 Chronic kidney disease, stage 3b (principal)
CPT/HCPCS: 80048

== ENCOUNTER 2023-03-27 01:19 | Outpatient (CLI) | payer MEDICARE, SELFPAY ==
--- NOTE | 2023-03-27 | DI.US_ITS ---
APPROVED REPORT EXAM: Comprehensive 2D, Doppler, and color-flow Echocardiogram Patient Location: Out-Patient [employer] Sergeant: Betty Schwarz RDCS (AE) Indications: Systolic heart murmur, DM, COPD, HTN, Pre op joint replacement Other Information Study Quality: Fair. Technically limited study due to body habitus, inability to position patient exa m done supine, hip pain unable to turn. Conclusion Technically limited study Left ventricle appears normal and wall thickness, chamber size and systolic function. EF is 60%. No segmental wall motion abnormalities are seen Normal right ventricular size and systolic function Both atria are normal in size Aortic valve is calcified without stenosis or regurgitation There is no additional structural or hemodynamically significant valvular disease Wall motion Left Ventricle Technically limited parasternal imaging. The overall left ventricular systolic function appears mily l. There is normal LV segmental wall motion. There is no ventricular septal defect visualized. LVEF i s 60%. Right Ventricle The right ventricle is normal size. The right ventricular systolic function is normal. Atria The left atrium size is normal. The right atrium size is normal. The interatrial septum is intact wit h no evidence for an atrial septal defect. Aortic Valve Aortic valve is calcified. Number of aortic valve leaflets could not be assessed. No hemodynamically significant valvular aortic stenosis. No aortic regurgitation is present. Mitral Valve The mitral valve is normal in structure. No evidence of mitral valve stenosis. Trace mitral regurgita tion. Tricuspid Valve The tricuspid valve is normal in structure. There is no tricuspid valve stenosis. Trace tricuspid reg urgitation. Unable to assess PA pressure. Pulmonic Valve Pulmonic valve is not well visualized. There is no pulmonic valvular stenosis. There is no pulmonic v alvular regurgitation. Great Vessels The aortic root is normal in size. Ascending aorta is not well visualized. Descending aorta is not we ll visualized. IVC is normal in size and collapses >50% with inspiration. Pericardium There is no pericardial effusion. 2D Dimensions Ao Root d 3.29 cm F: 2.7 - 3.3 LV Vol A2C d MOD 88.1 mL RA Area A4C 11.33 cm2 LV Vol A4C d MOD 111.5 mL RA Vol/ BSA A4C s A-L 10.0 mL/m2 LA vol/ BSA A2C s A-L 28.5 mL/m2 LVEF (Rod's) 58.46 % F: 54 - 74 LA vol/ BSA A4C s A-L 13.5 mL/m2 LV Volume 74.88 mL F: 46 - 106 LA Vol/ BSA Biplane s A-L 23.6 mL/m2 LV Volume Index 34.19 mL/m2 F: 29 - 61 LA Area A4C s MOD 12.54 cm2 LV Vol Biplane MOD 102.7 mL LA Area A2C s MOD 21.96 cm2 LV EF A4C MOD 59.4 % LV EF A2C MOD 58.7 % LV EF Biplane MOD 58.5 % SV 60.07 mL SV Index 27.48 mL/m2 M-Mode TAPSE 2.73 cm (M/F) >1.7 LV Diastology MV E' medial 0.076 (>0.07 m/s) E/A Ratio 0.8 LV E/e MED 7.45 (<14) MV E Vmax 0.57 (0.4-1.3 m/s) MV E' lateral 0.082 (>0.1 m/s) MV A Vmax 0.70 (0.4-1.3 m/s) LV E/e LAT 6.90 (<14) MV E/A Ratio 0.80 MV E/E' medial 7.47 MV E/E' lateral 6.93 Aortic Valve LVOT Area 3.64 cm2 AoV Area Vmax 2.11 cm2 LVOT Vmax 1.24 m/s AoV Area/ BSA (Vmax) 0.96 cm2/m2 LVOT Mean Charlie. 0.77 m/s JUAN Mean Charlie. 1.80 cm2 LVOT Peak Grad 6.1 mmHg JUAN Mean Charlie. Index 0.82 cm2/m2 LVOT Mean Grad 2.9 mmHg LVOT VTI 0.251 m LVOT Diam s 2.15 cm AoV Vmax 2.14 m/s Velocity Ratio 0.58 AoV Mean Charlie. 1.56 m/s AoV Peak Grad 18.3 mmHg LVOT SV 91.47 mL AoV Mean Grad 10.7 mmHg AoV VTI 0.431 m AoV Area VTI 2.12 cm2 AoV Area/ BSA (VTI) 0.97 cm/m2 Mitral Valve MV DT 307 (160-240 msec) MV PHT 89 msec MV Area PHT 2.47 cm2 MV VTI 0.211 m MV Area VTI 4.34 (4.0-6.0 cm2) Pulmonary Valve PV Vmax 1.19 (0.5-1.5 m/s) RVOT Peak Gr. 4.10 mmHg PV Peak Grad 5.6 mmHg RVOT Mean Gr. 2.20 mmHg PV Mean Grad 2.9 mmHg RVOT VTI 0.211 m PV VTI 0.242 m RVOT Vmax 1.01 m/s
== END 2023-03-27 01:39 ==
LOC: DI 01:19
PROVIDERS: PCP Family Medicine; Visit Provider Family Medicine
DX: R01.1 Cardiac murmur, unspecified (principal)
CPT/HCPCS: 93306

== ENCOUNTER 2023-03-29 12:56 | Outpatient (CLI) | payer MEDICARE, SELFPAY ==
[2023-03-29 12:13] LABS: HCT 42.2 % (36.0-46.0); HGB 13.5 g/dL (11.2-15.7); MCH 29.9 pg (27.0-33.0); MCV 93 fL (80-95); MPV 9.6 fL (8.0-11.0); Platelet Count 248 10^3/uL (130-400); RBC 4.52 10^6/uL (3.93-5.22); RDW 13.6 % (11.7-14.6); RDW-SD 46.3 fL; WBC 10.65 10^3/uL (4.4-10.8)
[2023-03-29 12:54] LABS: Anion Gap 10.7 mmol/L (3-11); BUN 27 mg/dL (7-18); CO2 27.3 mmol/L (21.0-32.0); CREATININE 1.7 mg/dL (0.55-1.02); Chloride 103 mmol/L (98-107); Estimated GFR 32.87 (mL/min/1.73m2); Glucose 133 mg/dL (74-106); Potassium 4.3 mmol/L (3.5-5.1); Sodium 141 mmol/L (136-145)
[2023-03-31 13:02] LABS: Fructosamine 253 mcmol/L (200 - 285)
== END 2023-03-29 12:57 | disposition home or self-care (01) ==
LOC: LBO 12:57
PROVIDERS: PCP Family Medicine; Visit Provider Student in an Organized Health Care Education/Training Program
DX: M16.12 Unilateral primary osteoarthritis, left hip (principal); Z01.818 Encounter for other preprocedural examination
CPT/HCPCS: 36415; 80048; 85027; 82985

== ENCOUNTER 2023-04-04 08:28 | Day surgery (SDC) | payer MEDICARE, SELFPAY ==
[2023-04-04] VITALS (34 sets, daily range): BP systolic 111–143; BP diastolic 52–98; PULSE 65–100; RESP 14–24; TEMP 36.1–36.7; O2SAT 79–100; BMI 44.9
[2023-04-04] MEDS: Acetaminophen 500 MG TAB 1000 MG PO ×2 (09:01→20:01)
[2023-04-04] MEDS: Celecoxib 200 MG CAP 400 MG PO (09:01)
[2023-04-04] MEDS: Lactated Ringers 1,000 ML 80 ML IV (09:16)
--- NOTE | 2023-04-04 09:56 | W.ANESPRE ---
General Info Date of Service Date Performed: 04/04/23 Height: 5 ft 5 in Weight: 122.5 kg Body Mass Index (BMI): 44.9 Surgical Procedure: Operation Date: 04/04/23 11:50 Proposed Procedure Side Surgeon p Hip Total Hip Anterior, ACTIS Left Jacky Dash MD Meds Allergies and Home Medications Allergies Allergy/AdvReac Type Severity Reaction Status Date / Time amoxicillin Allergy Unknown Skin Rash Verified 04/04/23 08:56 sulfamethoxazole Allergy Unknown Skin Rash Verified 04/04/23 08:56 [From Bactrim] trimethoprim [From Bactrim] Allergy Unknown Skin Rash Verified 04/04/23 08:56 oxycodone AdvReac Intermediate HALLUCINATI Verified 04/04/23 08:56 ONS Penicillins AdvReac RASH Verified 04/04/23 08:56 Sulfa (Sulfonamide AdvReac RASH Verified 04/04/23 08:56 Antibiotics) Home Medication Medication Instructions Recorded atorvastatin 10 mg tablet (Lipitor) 10 mg PO DAILY 12/06/13 amlodipine 2.5 mg tablet 2.5 mg PO DAILY 11/05/21 cholecalciferol (vitamin D3) 25 25 mcg PO DAILY 04/21/22 mcg (1,000 unit) capsule fluticasone propionate 50 2 spray intranasal DAILY #16 grams 05/18/22 mcg/actuation nasal spray,suspension (Flonase Allergy Relief) ketoconazole 2 % topical cream 1 applic topical BID 11/23/22 magnesium oxide 400 mg PO DAILY 11/23/22 dulaglutide 0.75 mg/0.5 mL 1.5 mg subcut QWEEK 12/29/22 [facility] lisinopril 2.5 mg tablet 2.5 mg PO DAILY 12/29/22 glipizide 2.5 mg tablet, extended 2.5 mg PO DAILY 01/23/23 release 24 hr acetaminophen 500 mg tablet 1,000 mg PO Q8H PRN pain #90 tabs 04/04/23 aspirin 81 mg tablet,delayed 81 mg PO BID 30 days #60 tabs 04/04/23 release celecoxib 200 mg capsule (Celebrex) 200 mg PO BID PRN #60 caps 04/04/23 docusate sodium 100 mg capsule 100 mg PO BID #30 caps 04/04/23 (Colace) hydromorphone 2 mg tablet 2 mg PO Q4H PRN #15 tabs 04/04/23 pantoprazole 40 mg tablet,delayed 40 mg PO DAILY 14 days #14 tabs 04/04/23 release Current Visit Medications: Current Medications Generic Name Dose Route Start Last Admin Trade Name Gabriela PRN Reason Stop Dose Admin Acetaminophen 1,000 mg 04/04/23 06:00 04/04/23 09:01 Acetaminophen 500 Mg Tab PO 04/04/23 16:00 1,000 mg PREOP AMANDA Administration Acetaminophen 1,000 mg 04/04/23 14:00 Acetaminophen 500 Mg Tab PO 05/04/23 13:59 TID AMANDA Celecoxib 400 mg 04/04/23 06:00 04/04/23 09:01 Celecoxib 200 Mg Cap PO 04/04/23 16:00 400 mg PREOP AMANDA Administration Hydromorphone HCl 0.5 mg 04/04/23 07:18 Hydromorphone 2 Mg/Ml Syr IVP 05/04/23 07:17 Q2H PRN PRN Tranexamic Acid 1,000 mg/ 60 mls @ 360 mls/hr 04/04/23 06:00 Sodium Chloride IV 04/04/23 16:00 PREOP AMANDA Ringer's Solution 1,000 mls @ 80 mls/hr 04/04/23 06:00 04/04/23 09:16 IV 04/04/23 23:59 80 mls/hr INFUSION AMANDA Administration Cefazolin Sodium 3,000 mg/ 100 mls @ 200 mls/hr 04/04/23 06:00 Sodium Chloride IVPB 04/04/23 16:00 PREOP AMANDA Cefazolin Sodium/Dextrose 1 gm in 50 mls @ 100 mls/hr 04/04/23 16:00 Ancef Duplex IVPB 04/05/23 08:29 Q8H AMANDA IV Miscellaneous Supplies 1 each 04/04/23 06:00 Iv Access IV 04/04/23 23:59 DIRECTED AMANDA Sodium Chloride 0 ml 04/04/23 06:00 Normal Saline Flush 10 Ml Syr IV 04/04/23 23:59 PRN PRN Sodium Chloride 0 ml 04/04/23 06:00 Normal Saline 10 Ml Vial IJ 04/04/23 23:59 DIRECTED PRN Sterile Water 0 ml 04/04/23 06:00 Water,Injection,Sterile 10 Ml Vial IJ 04/04/23 23:59 DIRECTED PRN PFSH Active Problems Active Problems: Problem Status Onset Code Spondylosis of lumbar region without myelopathy or radiculopathy M47.816 Essential hypertension Diverticular disease Sciatica Diabetes mellitus Iliotibial band syndrome Chronic kidney disease, stage 3 Actinic keratitis Hypothyroidism Left tibialis posterior tendonitis Irritable bowel syndrome with diarrhea Adult body mass index greater than 30 Right hip pain Asthma Leukoplakia oral mucosa 12/04/14 K13.21 Left carpal tunnel syndrome G56.02 CKD (chronic kidney disease) N18.9 Hyperlipidemia E78.5 Trochanteric bursitis of left hip M70.62 Phlegm in throat R09.89 Postnasal drip R09.82 Nasal congestion R09.81 Tinnitus, bilateral H93.13 Sensorineural hearing loss, bilateral H90.3 Posterior tibial tendon dysfunction (PTTD) of right lower extremity M76.821 Pain, foot M79.673 Degenerative joint disease of left hip M16.12 Medical History Medical History COPD (chronic obstructive pulmonary disease) Pt. denies Diverticular disease Dysphagia Osteoarthritis Pes planus RBC microcytosis Ulcerative colitis Surgical History Surgical History Arthroscopy, Shoulder (03/04/16) RIGHT SHOULDER/DR. ANTONIO Colonoscopy - IV Sedation frequently secondary to imflammatory bowel dz 2015 - nl. will begin routine schedule of surveillence H/O foot surgery (~01/2018) pes planus repair [facility] History of surgery on arm (~02/2016) bicep rupture reattachment History of total right hip replacement (10/21/20) Repair of umbilical hernia 2006 Replacement of total knee joint bilateral knee replacements Rotator Cuff Repair 10/2011 Tobacco Smoking/Tobacco Use Status: Former Tobacco Use Alcohol Alcohol Intake: current Alcohol intake frequency: holidays/special occasions only Substance Use Substance use: Never Substance use type: does not use Prental History History 2 Para Hx # Term Pregnancies 2 Multiple births Hx # Pregnancies Ectopic pregnancies AB induced Hx Number of Living Children AB spontaneous Vital Signs and Lab Results Vital Signs Most Recent Vital Signs in EMR: Most Recent Vital Signs Temp Pulse Resp BP Pulse Ox 36.4 C L 94 H 18 137/85 98 04/04/23 08:34 04/04/23 08:34 04/04/23 08:34 04/04/23 08:34 04/04/23 08:34 Point of Care Results Point of Care Results: Finger Stick Blood Glucose 143 04/04/23 09:07 Lab Results Blood Type / Crossmatch: No Data to Display Complete Blood Count: White Blood Count 10.65 10^3/uL (4.4-10.8) 03/29/23 11:58 Red Blood Count 4.52 10^6/uL (3.93-5.22) 03/29/23 11:58 Hemoglobin 13.5 g/dL (11.2-15.7) 03/29/23 11:58 Hematocrit 42.2 % (36.0-46.0) 03/29/23 11:58 Platelet Count 248 10^3/uL (130-400) 03/29/23 11:58 Complete Metabolic Panel: Sodium 141 mmol/L (136-145) 03/29/23 11:58 Potassium 4.3 mmol/L (3.5-5.1) 03/29/23 11:58 Chloride 103 mmol/L (98-107) 03/29/23 11:58 Carbon Dioxide 27.3 mmol/L (21.0-32.0) 03/29/23 11:58 BUN 27 mg/dL (7-18) H 03/29/23 11:58 Creatinine 1.7 mg/dL (0.55-1.02) H 03/29/23 11:58 Est GFR (CKD-EPI 2020) 32.87 (mL/min/1.73m2) 03/29/23 11:58 Calcium 10.0 mg/dL (8.5-10.1) 03/29/23 11:58 Glucose 133 mg/dL (74-106) H 03/29/23 11:58 Liver Function Panel: No Data to Display Coagulation Panel: No Data to Display Cardiac Panel: No Data to Display Arterial Blood Gas: No Data to Display Venous Blood Gas: No Data to Display Pancreas Panel: No Data to Display Thyroid Panel: No Data to Display Infectious Disease: No Data to Display Blood Cultures: No Data to Display Toxicology Panel: No Data to Display Imaging and Studies Imaging and Studies Study information below may be from another EMR and interpreted by another provider. Please see original notes in EMR for more complete details. EKG Summary: EKG PATIENT NAME: Dori New #: [id number] ORDERING PROVIDER: Paty Dsouza M.D. PRIMARY CARE PROVIDER:BETHEL ROBERSON MD DATE/TIME OF SERVICE: 10/03/21919 : 1955PERFORMING LOCATION: ER APPROVED REPORT Exam: Resting ECG Reason for Exam: sob Patient Location: E HR:105 bpm ECG Measurements Heart Rate 105 AXIS AK 182 P 63 QRSd 88 QRS 30 QT 336 [id number] QTc 444 Conclusion Sinus tachycardia...rate> 99 <Electronically signed by PATY DSOUZA MD in OV> E-Sign Date: 10/03/21 E-Sign Time: 920 ADDENDUM APPROVED REPORT Exam: Resting ECG Reason for Exam: sob Patient Location: E HR:105 bpm ECG Measurements Heart Rate 105 AXIS AK 182 P 63 QRSd 88 QRS 30 QT 336 [id number] QTc 444 Conclusion Sinus tachycardia...rate> 99 I have reviewed and I agree with the emergency room physician's ECG interpretation. Electronically signed by: <Electronically signed by Merissa Ngo M.D. in [place]> 10/04/21818 Cosigned by: Echocardiogram Summary: Patient Name: Dori New #: [id number]: DI Ordering Provider: Yaakov Roberson #: [id number]: [facility] Primary Care Provider: Sung Roberson of Exam: 03/27/23Sex: F Admission Date: 03/27/23 : 1955 Age: 67 APPROVED REPORT EXAM: Comprehensive 2D, Doppler, and color-flow Echocardiogram Patient Location: Out-Patient [employer] Rod: Betty Schwarz RDCS (AE) Indications: Systolic heart murmur, DM, COPD, HTN, Pre op joint replacement Other Information Study Quality: Fair. Technically limited study due to body habitus, inability to position patient exam done supine, hip pain unable to turn. Conclusion Technically limited study Left ventricle appears normal and wall thickness, chamber size and systolic function. EF is 60%. No segmental wall motion abnormalities are seen Normal right ventricular size and systolic function Both atria are normal in size Aortic valve is calcified without stenosis or regurgitation There is no additional structural or hemodynamically significant valvular disease Wall motion Left Ventricle Technically limited parasternal imaging. The overall left ventricular systolic function appears normal. There is normal LV segmental wall motion. There is no ventricular septal defect visualized. LVEF is 60%. Right Ventricle The right ventricle is normal size. The right ventricular systolic function is normal. Atria The left atrium size is normal. The right atrium size is normal. The interatrial septum is intact with no evidence for an atrial septal defect. Aortic Valve Aortic valve is calcified. Number of aortic valve leaflets could not be assessed. No hemodynamically significant valvular aortic stenosis. No aortic regurgitation is present. Mitral Valve The mitral valve is normal in structure. No evidence of mitral valve stenosis. Trace mitral regurgitation. Tricuspid Valve The tricuspid valve is normal in structure. There is no tricuspid valve stenosis. Trace tricuspid regurgitation. Unable to assess PA pressure. Pulmonic Valve Pulmonic valve is not well visualized. There is no pulmonic valvular stenosis. There is no pulmonic valvular regurgitation. Great Vessels The aortic root is normal in size. Ascending aorta is not well visualized. Descending aorta is not well visualized. IVC is normal in size and collapses >50% with inspiration. Pericardium There is no pericardial effusion. 2D Dimensions Ao Root d 3.29 cm F: 2.7 - 3.3LV Vol A2C d MOD 88.1 mL RA Area A4C11.33 cm2LV Vol A4C d MOD 111.5 mL RA Vol/ BSA A4C s A-L 10.0 mL/m2LA vol/ BSA A2C s A-L28.5 mL/m2 LVEF (Rod's)58.46 % F: 54 - 74LA vol/ BSA A4C s A-L13.5 mL/m2 LV Cyjpib74.88 mL F: 46 - 106LA Vol/ BSA Biplane s A-L 23.6 mL/m2 LV Volume Index34.19 mL/m2 F: 29 - 61LA Area A4C s MOD 12.54 cm2 LV Vol Biplane MOD 102.7 mLLA Area A2C s MOD 21.96 cm2 LV EF A4C MOD 59.4 % LV EF A2C MOD 58.7 % LV EF Biplane MOD 58.5 % SV60.07 mL SV Index27.48 mL/m2 M-Mode TAPSE 2.73 cm (M/F) >1.7 LV Diastology MV E' medial0.076 (>0.07 m/s)E/A Ratio 0.8 LV E/e MED7.45 (<14)MV E Vmax 0.57 (0.4-1.3 m/s) MV E' lateral0.082 (>0.1 m/s)MV A Vmax 0.70 (0.4-1.3 m/s) LV E/e LAT6.90 (<14)MV E/A Ratio 0.80 MV E/E' medial 7.47 MV E/E' lateral6.93 Aortic Valve LVOT Area3.64 cm2AoV Area Vmax2.11 cm2 LVOT Vmax 1.24 m/sAoV Area/ BSA (Vmax)0.96 cm2/m2 LVOT Mean Charlie.0.77 m/sAVA Mean Charlie.1.80 cm2 LVOT Peak Grad 6.1 mmHgAVA Mean Charlie. Index0.82 cm2/m2 LVOT Mean Grad 2.9 mmHg LVOT VTI0.251 m LVOT Diam s 2.15 cm AoV Vmax2.14 m/s Velocity Ratio 0.58 AoV Mean Charlie.1.56 m/s AoV Peak Grad18.3 mmHg LVOT SV 91.47 mL AoV Mean Grad10.7 mmHg AoV VTI0.431 m AoV Area VTI2.12 cm2 AoV Area/ BSA (VTI)0.97 cm/m2 Mitral Valve MV DT 307 (160-240 msec) MV PHT89 msec MV Area PHT 2.47 cm2 MV VTI 0.211 m MV Area VTI 4.34 (4.0-6.0 cm2) Pulmonary Valve PV Vmax 1.19 (0.5-1.5 m/s)RVOT Peak Gr.4.10 mmHg PV Peak Grad 5.6 mmHgRVOT Mean Gr.2.20 mmHg PV Mean Grad 2.9 mmHgRVOT VTI0.211 m PV VTI 0.242 mRVOT Vmax 1.01 m/s Ordered By: Bethel Roberson CC: Anesthesia Assessment and Plan Anesthesia History Personal History: No History of Anesthesia Complications Family History: No Family History of Anesthesia Complications Exercise Tolerance Exercise Tolerance: Metabolic Equivalents>4 Pertinent Negatives Pertinent Negatives: No Symptoms of GERD and No History of CVA/TIA Cardiac & Pulmonary Exam Cardiac Exam: Normal S1/S2 Heart Sounds Pulmonary Exam: Clear Bilateral Breath Sounds Implantable Cardiac Device Does patient have a Pacemaker or an ICD?: No Airway Exam Known Difficult Airway: No Mallampati Class: 2 Mouth Opening: Normal (> 3cm) Thyromental Distance: Greater than 3 cm Neck Range of Motion: Full ROM Neck Circumference: Normal Teeth Condition: Generalized Poor Dentition and Loose or Chipped ASA Classification ASA Score: ASA 3 Emergency Case?: No NPO Status NPO Status: NPO Clears >2 hours, Solids >8 hours Anesthesia Plan Resuscitation Status: Full Code Anesthesia Technique: Spinal Anesthesia Airway Planned: Natural Airway Monitors Used: Standard Monitors
[2023-04-04] MEDS: ceFAZolin 3,000 MG in Normal Saline 100 ML 200 MG IVPB (11:36)
--- NOTE | 2023-04-04 12:50 | DI.RAD_ITS ---
Exam(s) XR HIP LT IN OR EXAM: XR HIP LT IN OR CLINICAL HISTORY: LEFT TOTAL HIP REPLACEMENT. TECHNIQUE: 2D digital imaging was performed. COMPARISON: No exams were available for comparison FINDINGS: Fluoroscopy provided during hip arthroplasty performed bar edwin surgeon. See separate procedure rep ort for details Total fluoroscopy time 27.8 seconds Radiation exposure index/cumulative dose: Shaungio= 8.96mGy IMPRESSION: DATA REPOSITORY: RADIATION DOSE DELIVERED:
[2023-04-04] MEDS: HYDROmorphone 2 MG/ML SYR IVP (13:49)
[2023-04-04] MEDS: Normal Saline 10 ML VIAL IJ (13:49)
[2023-04-04] MEDS: LORazepam 2 MG/ML VIAL 0.5 MG IVP (13:53)
--- NOTE | 2023-04-04 14:07 | W.ANESPOSTOP ---
Postoperative Evaluation Date, Time and Location Date Performed: 04/04/23 Time Performed: 14:07 Patient Location: Day Surgery Unit Vital Signs Most Recent Imported Vital Signs: Most Recent Vital Signs Temp Pulse Resp BP Pulse Ox 36.1 C L 70 18 112/76 96 04/04/23 13:27 04/04/23 13:27 04/04/23 13:27 04/04/23 13:27 04/04/23 13:27 Pain Score Most Recent Pain Score: Most Recent Pain Score Pain Level 10 04/04/23 13:27 Assessment Mental Status: Awake (Alert & Oriented to Patient Baseline) Airway and Respiratory Function: Patent airway with normal (patient baseline) respiratory exam Cardiovascular Function: Hemodynamically Stable Hydration Status: Adequately Hydrated Nausea & Vomiting: No Nausea or Vomiting Pain: Pain is tolerable per patient (No Longer 10) Peripheral Nerve Block: Patient did not receive a nerve block
[2023-04-04] MEDS: HYDROmorphone 2 MG TAB PO ×2 (15:09→16:25)
--- NOTE | 2023-04-04 16:25 | IN_ITS ---
PT Notes Visit Reasons: Left hip DJD Physical Therapy Day Surgery Initial Evaluation Date: 04/04/2023 Referring Doctor: LLUVIA Soares PT Orders: PT CONSULT: S/P Orthos Surgery Precautions: WBAT on the L LE with AD. Patient Profile/Admitting Diagnosis: Dori is a 67-year-old female with degenerative joint disease of the left hip and is status post left anterior total hip arthroplasty on postoperative day 0. PMHX: All Active Problems?(Updated 01/23/23 @ 11:38 by Leanne Fish RN) Hyperlipidemia (Acute) Essential hypertension (Chronic) CKD (chronic kidney disease) (Chronic) Degenerative joint disease of left hip (Acute) Minimal on x-ray Depo-medrol injection: 12/29/22Pain, foot (Acute) Posterior tibial tendon dysfunction (PTTD) of right lower extremity (Acute) Sensorineural hearing loss, bilateral (Acute) Tinnitus, bilateral (Acute) Nasal congestion (Acute) Postnasal drip (Acute) Phlegm in throat (Acute) Trochanteric bursitis of left hip (Acute) s/p Injection 04/29/22 Left carpal tunnel syndrome (Acute) S/P ECTR: 07/07/2021 Diverticular disease (Chronic) Sciatica (Chronic) Diabetes mellitus (Chronic) controlled with oral agents Iliotibial band syndrome (Chronic) Chronic kidney disease, stage 3 (Chronic) Actinic keratitis (Chronic) Hypothyroidism (Chronic) Left tibialis posterior tendonitis (Chronic) Irritable bowel syndrome with diarrhea (Chronic) Adult body mass index greater than 30 (Chronic) Right hip pain (Chronic) Asthma (Chronic) Leukoplakia oral mucosa (Acute 12/04/14) This could be secondary to friction, lichen planus, or potentially thrush. I suspect it is secondary to friction between the cheek and the teeth. Spondylosis of lumbar region without myelopathy or radiculopathy (Chronic) Medical History?(Updated 01/23/23 @ 11:38 by Leanne Fish RN) COPD (chronic obstructive pulmonary disease) Diverticular disease Dysphagia Osteoarthritis Pes planus RBC microcytosis Ulcerative colitis Surgical History?(Updated 01/23/23 @ 12:19 by Leanne Fish RN) Arthroscopy, Shoulder (03/04/16) RIGHT SHOULDER/DR. ANTONIO Colonoscopy - IV Sedation frequently secondary to imflammatory bowel dz 2015 - nl. will begin routine schedule of surveillence H/O foot surgery (~01/2018) pes planus repair [facility] [place] of surgery on arm (~02/2016) bicep rupture reattachment History of total right hip replacement (10/21/20) Repair of umbilical hernia 2006 Replacement of total knee joint bilateral knee replacements Rotator Cuff Repair 10/2011 Social History/Home Situation: Lives with in a private home with 2-3 steps to enter with rails. Equipment Owned/DME: [employer] Subjective: Complained of pain in the L hip and thigh upon standing up from sitting at edge of bed for the first time. Refused to move any further after the second try at standing up but was okay to pivot to bedside chair. Informed Nurse Tasha about pain complaint who then reached out to orthopedic surgeon about pain resolution prior to therapy mobility assessment. PT came back to continue with assessmnet about 45 minutes later and patient was able to tolerate short distance ambulation but reported intermittent disarming pain of up to 8-9/10 on the outer side of her L thigh that comes about when she brings her left lower extremity forward. Minimal pain at rest. Denies headache, chest pain, and lightheadedness throughout session. Objective: General Observation: Supine in bed. High BMI. Oxygen saturation bordering between 88-91% throughout the walk. Mental Status: Alert and oriented x 4 Pain: Up to 8-9/10 intermittent pain in the mid lateral shaft of left thigh during limb advancement on L ROM: Right Lower Extremity: Hip flexion WFL. Hip abduction WFL. Knee flexion WFL. Ankle dorsiflexion WFL. Ankle plantarflexion WFL. Left Lower Extremity: Hip flexion about 50% of AROM available, further movement limited by pain. Hip abduction able to slide L LE about 10 degrees to sit up at edge of bed. Knee flexion 30 degrees to 90 degrees actively. Knee extension-30 degrees. Ankle dorsiflexion WFL. Ankle plantarflexion WFL. Strength: Right Lower Extremity: Hip flexors 5/5. Hip abductors 5/5. Knee flexors 5/5. Knee extensors 5/5. Ankle dorsiflexors 5/5. Ankle plantarflexors 5/5. Left Lower Extremity:Hip flexors 3-/5. Hip abductors 3-/5. Knee flexors 3-/5. Knee extensors 3-/5. Ankle dorsiflexors 4-/5. Ankle plantarflexors 4/5. Sensation: Intact as to pain and light pressure in B LE Bed Mobility/Transfers: Supine to sit contact guard assist Sit to stand minimal assist due to sudden shooting pain through lateral L thigh Stand to sit minimal assist due to sudden shooting pain through lateral L thigh Bed to chair minimal assist due to sudden shooting pain through lateral L thigh Gait: Upon return of PT, patient was able to walk from bed to bathroom about 30 feet to use toilet using FWW. She then was able to walk about 50 feet through the [facility] hallway and then walked back about 50 feet to her bedside recliner. Intermittent shooting pain on the L lateral hip and thigh during accelera tion/swing of the L LE that occurred about every 5 steps. Stairs: Negotiated 3 x 4-inch steps and and 2 x 6-inch steps while holding onto B rails with same issue of shooting pain in the same area with hip flexion. Required contact guard assist for safey, step-to gait pattern. Cues provided for safety. Balance: Static Sitting: Good Dynamic Sitting: Fair Static Standing: Fair Dynamic Standing: Fair Special Tests: Mobility Limitations Standardized Measure [facility] AM-PAC 6 clicks Basic Mobility Inpatient Short Form: Raw Score: 19 CMS Score: 42% deficit Informed Consent/Education: Patient instructed in purpose of PT consult. Packet containing GURPREET exercise protocol has been given to patient. Education and training on initial set of exercises that can be done at home have been completed with patient. Access Code: [email or web address] URL: [email or web address] Date: 04/04/2023 Prepared by: Rolanda Simental Exercises - Gluteal Sets - 1 x daily - 7 x weekly - 1 sets - 10 reps - 5 hold - Supine Heel Slide - 1 x daily - 7 x weekly - 1 sets - 10 reps - 5 hold - Supine Ankle Pumps - 1 x daily - 7 x weekly - 1 sets - 10 reps - 5 hold - Seated March - 1 x daily - 7 x weekly - 1 sets - 10 reps - 5 hold - Seated Long Arc Quad - 1 x daily - 7 x weekly - 1 sets - 10 reps - 5 hold Assessment: Postoperative associated muscular pain to lateral quads and or fasciatis (ITB syndrome) limit safety and ability of patient to perform ambulation performance. Patient will require use of FWW and assist of another person at home to reduce fall risk. lynda verbalizes that will be there to provide needed assistance. Nurse Felix closely monitoring oxygen saturation potential down trending with plan to admit patient as needed. Dr. Dash aware. Patient presents with clinical signs and symptoms consistent with current/admitting diagnoses that have resulted to mobility limitations, gait instability, generalized weakness, and impairment of motor control as demonstrated by the following impairment level findings: 1. Decreased strength to left hip major muscle groups 2. Impaired standing balance 3. Limitation of joint range of motion in left hip 4. Postoperative muscular pain and or fasciatis/ITB syndrome with L hip flexion Impairments are contributing to the following functional limitations: 1. Inability to safely ambulate without assistive device 2. Increase completion time for mobility ADL performance 3. Increased fall risk Patient is assessed as a 61115 moderate complexity based on the following: History: 67-year-old female with impairment level findings, functional limitations, and past medical history as indicated above Examination: Demonstrable impairment in strength, balance, and mobility level with underlying impairments and functional limitations as documented above Presentation: Evolving Decision Makin moderate complexity Goals: N/A. PT evaluation and 1-2 treatment sessions only for functional mobility training using recommended AD and for HEP instruction. Plan of Care/Treatment Plan: N/A. PT evaluation and 1-2 treatment session only for functional mobility training using recommended AD and for HEP instruction. DISCHARGE RECOMMENDATIONS: Admission to [facility] [place] for overnight observation vs. PT for continued mobility progression/pain management/monitoring. TREATMENT CODE/TIME: 50432 x 28 minutes, 42664 x 26 minutes beginning at 15:25 PM and 16:38 PM. Thank you for the opportunity to participate in the care of this patient. Rolanda Simental PT, DPT, CLT [facility] [employer], [place]
--- NOTE | 2023-04-04 16:37 | W.PM.DS.N ---
Date of service: 04/04/23 Time of Service: 16:37 DS: Diagnosis Discharge Diagnosis (1) Degenerative joint disease of left hip: Status: Acute Discharge Plan Disposition Patient Disposition: Home Condition: Good Discharge Details Reason For Visit: Left hip DJD Attending Provider: Jacky Dash Primary Care Provider: Gumaro Roberson Home Meds and New Rx's Prescriptions: New acetaminophen 500 mg tablet 1,000 mg PO Q8H PRN Qty: 90 0RF Rx Instructions: Take two tablets up to every 8 hours as needed for pain aspirin 81 mg tablet,delayed release (DR/EC) 81 mg PO BID 30 Days Qty: 60 0RF celecoxib [Celebrex] 200 mg capsule 200 mg PO BID PRNQty: 60 0RF Rx Instructions: Take one tablet twice daily for pain and inflammation docusate sodium [Colace] 100 mg capsule 100 mg PO BID Qty: 30 0RF pantoprazole 40 mg tablet,delayed release (DR/EC) 40 mg PO DAILY 14 Days Qty: 14 0RF hydromorphone 2 mg tablet 2 mg PO Q4H PRNQty: 15 0RF Rx Instructions: Take one tablet up to every 4 hours as needed for severe postoperative pain Continued amlodipine 2.5 mg tablet 2.5 mg PO DAILY lisinopril 2.5 mg tablet 2.5 mg PO DAILY fluticasone propionate [Flonase Allergy Relief] 50 mcg/actuation spray,suspension 2 spray intranasal DAILY Qty: 16 12RF Rx Instructions: administer into each nostril ketoconazole 2 % cream 1 applic topical BID magnesium oxide 400 mg magnesium tablet 400 mg PO DAILY atorvastatin [Lipitor] 10 MG tablet 10 mg PO DAILY cholecalciferol (vitamin D3) 25 mcg (1,000 unit) capsule 25 mcg PO DAILY Trulicity 0.75 mg/0.5 mL pen injector 1.5 mg subcut QWEEK glipizide 2.5 mg tablet extended release 24hr 2.5 mg PO DAILY Discontinued acetaminophen 500 mg tablet 1,000 mg PO Q8H PRN (Reason: pain) Qty: 90 3RF Discharge Instructions Additional Instructions: Total Hip Discharge Instructions Activity: The most important activity is to walk. You should try to take short walks a few times a day. You have no restrictions on movement or positioning, but do not try to force what you do. You will find some stiffness and weakness with hip flexion (lifting your knee). Do not try to strengthen this too early, continue to practice walking and stairs and this will come. - Outpatient physical therapy can be helpful to help return you to a normal gait and improve your flexibility and strength. This can start around 2 weeks. For some patients, it?s not necessary. Usually this is determined at the time of discharge or at the first post-operative visit. - You should wear the TREMAYNE hose on both legs for 2 weeks. Dressing: Keep the surgical dressing in place for at least one week. After the first week it may be removed and replace with light gauze and tape or nothing. It may get wet after 3 days but avoid soaking the dressing. If it gets wet, just lightly pat dry. It is important to always keep some gauze between skin folds, especially when you are sitting. Spend some time with the wound exposed when you are lying flat as the incision does wrinkle onto itself. Medications: - You should take Tylenol and an anti-inflammatory Celebrex as your primary pain control medications. If the Celebrex is too expensive or not covered, please call the office for another alternative (Advil/Ibuprofen or Naproxen/Aleve). - You have been prescribed a stronger pain medication Hydromorphone for breakthrough pain, take as needed as prescribed. - You have also been prescribed a stomach acid reduction agent Pantoprozole to help reduce stomach acid and reflux. - You will be taking Aspirin 81mg twice a day for DVT prevention unless instructed otherwise. - If you have constipation you should take Colace (which has been prescribed) or Miralax (which is available [id number]). It takes most people 3-4 days to have a bowel movement. Follow-up: 2 weeks If you have any acute concerns or questions, please do not hesitate to contact the office at [phone]. You may contact Dr. Dash with any questions after hours through the hospital at [phone] or on his cell phone at [phone]. Stand Alone Forms: Anesthesia Discharge Inst., Toyin Florian (U) Referrals: Jacky Dash MD [ [facility] STAFF PHYSICIAN] - Equipment/Supplies: Walker Activity:: Elevate Remove Dressings/Wound Care:: Do Not Remove Shower/Bathe:: Cover Diet:: As Tolerated Discharge Orders Discharge Orders: Discharge Order (Routine); Ordered 04/04/23 Ordered By: Jacky Dash DS: Summary Time Spent with Patient providing and/or coordinating discharge services: Less than 30 minutes Status at Discharge Functional status at discharge: uses cane/walker Overall status at discharge: patient is progressing back to baseline Mental Status: mental status grossly normal Speech and Movement: speech and movement normal Mood: congruent mood Affect: normal affect Exam Narrative Exam Narrative: Sitting up in the chair. NAD. AAOx3. LLE dressing c/d/i. Tenderness to palpation throughout anterolateral thigh. No pain with passive hip ER/IR. Psych Mental Status: mental status grossly normal Speech and Movement: speech and movement normal Mood: congruent mood Affect: normal affect DS: Data Vitals/I&O Vitals and I&O: Intake & Output 04/03/23 04/03/23 04/04/23 11:59 23:59 11:59 Weight 280 lb 15.984 oz PFSH All Active Problems Spondylosis of lumbar region without myelopathy or radiculopathy (Chronic) Essential hypertension (Chronic) Diverticular disease (Chronic) Sciatica (Chronic) Diabetes mellitus (Chronic) controlled with oral agents Iliotibial band syndrome (Chronic) Chronic kidney disease, stage 3 (Chronic) Actinic keratitis (Chronic) Hypothyroidism (Chronic) Left tibialis posterior tendonitis (Chronic) Irritable bowel syndrome with diarrhea (Chronic) Adult body mass index greater than 30 (Chronic) Right hip pain (Chronic) Asthma (Chronic) Leukoplakia oral mucosa (Acute 12/04/14) This could be secondary to friction, lichen planus, or potentially thrush. I suspect it is secondary to friction between the cheek and the teeth. Left carpal tunnel syndrome (Acute) S/P ECTR: 07/07/2021 CKD (chronic kidney disease) (Chronic) Hyperlipidemia (Acute) Trochanteric bursitis of left hip (Acute) s/p Injection 04/29/22 Phlegm in throat (Acute) Postnasal drip (Acute) Nasal congestion (Acute) Tinnitus, bilateral (Acute) Sensorineural hearing loss, bilateral (Acute) Posterior tibial tendon dysfunction (PTTD) of right lower extremity (Acute) Pain, foot (Acute) Degenerative joint disease of left hip (Acute) Minimal on x-ray Depo-medrol injection: 12/29/22 Medical History COPD (chronic obstructive pulmonary disease) Pt. denies Diverticular disease Dysphagia Osteoarthritis Pes planus RBC microcytosis Ulcerative colitis Surgical History Arthroscopy, Shoulder (03/04/16) RIGHT SHOULDER/DR. ANTONIO Colonoscopy - IV Sedation frequently secondary to imflammatory bowel dz 2015 - nl. will begin routine schedule of surveillence H/O foot surgery (~01/2018) pes planus repair [facility] [place] History of surgery on arm (~02/2016) bicep rupture reattachment History of total right hip replacement (10/21/20) Repair of umbilical hernia 2006 Replacement of total knee joint bilateral knee replacements Rotator Cuff Repair 10/2011 Family History Brother Myocardial infarction sudden episode Mother Chronic obstructive lung disease Father Alzheimer's disease aunt Personal history of malignant neoplasm Social History Smoking/Tobacco Use Status: Former Tobacco Use Quit Date: 09/25/79 Smoking risk assessment performed?: Yes Alcohol Intake: current Alcohol Intake frequency: holidays/special occasions only Drug use: Never Substance use type: does not use Household members: spouse and other Details: [facility] Housing: house Number of Children: 2 number of grandchildren: 4 current occupation: 2018 retired [employer] Current gender identity: female What type of physical activity do you participate in: sedentary lifestyle and additional Details: Was physically active prior to injury of the foot Special crow needs: No Seatbelt use: always Do you feel safe at home: Yes Do you feel safe in your relationship?: Yes Female Reproductive History Menstrual Menopause type: natural History History 2 Para Hx # Term Pregnancies 2 Multiple births Hx # Pregnancies Ectopic pregnancies AB induced Hx Number of Living Children AB spontaneous Time Spent with Patient Time Spent with Patient: <45 minutes Time was spent: ordering medications,tests, procedures, counseling the patient and care coordination
[2023-04-04] MEDS: ceFAZolin 1 GM/50 ML BAG IVPB (19:59)
[2023-04-04] MEDS: Normal Saline Flush 10 ML SYR IV ×2 (20:00→21:10)
[2023-04-04] MEDS: Ketorolac 15 MG/ML VIAL IVP (20:00)
[2023-04-04] MEDS: Gabapentin 300 MG CAP PO (20:01)
--- NOTE | 2023-04-04 22:00 | ROE_ITS ---
Date of service: 04/04/23 Time of Service: 12:45 Operative Note Operative Note DATE OF PROCEDURE: 04/04/23 PRE-OP DIAGNOSIS: Left Hip Osteoarthritis POST-OP DIAGNOSIS: same PROCEDURE: Left Anterior Total Hip Arthroplasty with Intraoperative Navigation SURGEON: Jacky Dash PETROLEUM ENGINEERING PROFESSOR: Oriana Cabrales ANESTHESIA TYPE: Spinal Refer to Anesthesia Record ESTIMATED BLOOD LOSS: 350 PATHOLOGY: none sent TOURNIQUET TIME: 0 COMPLICATIONS: None Patient was transported to: PACU Patient's condition: stable Implants: 1. Depuy [place] Acetabular Component, 50mm 2. Depuy Acetabular Liner, [id number] 3. Depuy Actis Standard Collared Femoral Stem, Size 6 4. Depuy Altrx Ceramic Femoral Head, Size 32+5mm Indications: I have seen the Angelina in clinic for symptoms of hip arthritis, confirmed with radiographic findings. [NAME] has exhausted nonoperative methods and was having significant limitations in daily function and desired better function and less pain. I discussed the technical details of a hip replacement. I explained the risks of the procedure to include, but not limited to, bleeding, infection, pain, stiffness, fracture, damage to nerves and vessels, damage to muscles and tendons, loosening, instability, leg length inequality, need for repeat procedure, blood clot and cardiopulmonary demise. Despite these risks, [NAME] elected to proceed. Findings: There was notable chondromalacia of the femoral head and superior acetabular along with a large labral tear. Procedure Description: Angelina was greeted in the preoperative holding area where the correct side was identified and marked. The consent was reviewed with the patient and signed. The history and physical was updated. All questions were answered. She was taken back to the operating room. A spinal anesthestic was then administered. The feet were wrapped with cast padding and Coban and then placed into the boot liners and then into the boots. Care was taken to protect the sk in and make sure the heels were fully down and the boots were stable. The patient was then positioned onto the HANA table. Both legs were held in a neutral position. SCDs were applied. The patient was then slid down onto a peroneal post. Prophylactic antibiotics in the form of Cefazolin were administered. 1g of Tranxemic Acid was given intravenously within 30 minutes of incision. The left leg was then prepped with Chloraprep and draped in a standard fashion. A second prep with Chloraprep was performed prior to placement of a shower-curtain type drape with Iodine impregnated skin prot ection. A timeout to confirm correct identity, side and site, procedure, allergies, anesthesia, and medical concerns was performed. An obliquely oriented incision was made starting lateral to the ASIS and running distal over the Tensor Fascia Elizabeth (TFL) muscle belly toward the fibular head, approximately 10cm. The skin and soft tissue was dissected sharply, through Mary?s fascia, and to the fascia of the TFL. With the fascia and superior border of the IT band identified, the fascia was incised with a new knife just above any perforators from the IT band. The TFL muscle belly was bluntly dissected away from the fascia and moved laterally. The fat between TFL and rectus was identified to ensure the dissection was not within the TFL. Blunt dissection created space between abductors and the capsule and retractor was placed over the lateral femoral neck. The fibers of the rectus femoris tendon were identified and these were freed from the anterior capsule. A second cobra retractor was placed around the medial femoral neck. The TFL was further retracted laterally to show the deep fascia. Careful dissection through this layer identified three main crossing vessels of the lateral femoral circumflex. These were cauterized in multiple locations and then cut without any noticeable bleeding. The TFL was further released bluntly from the deep fascia to expose anterior hip capsule and fat The Marco orthopaedic retractor was then placed beneath the TFL and against sartorius and medial soft tissues to protect and retract the soft tissues. A T-capsulotomy was then performed starting at the superior lateral acetabulum and moving distally to the intertrochanteric ridge. These capsular flaps were tagged with a No. 1 Ethibond and elevated from within. The capsular flaps were released to the shoulder of the lateral neck and to the lesser trochanter to give excellent visualization of the proximal femur. A neck osteotomy was performed using an oscillating saw based on preoperative templates. This cut started in the shoulder and of the lateral neck and exited medially. The saw was at all times directed medially to avoid injury to the greater trochanter. Gross traction was applied to the leg and the osteotomy opened. The femoral head was removed with a corkscrew, making sure to protect the TFL on its exit. Traction was released after head removal. This was measured on the back table to determine the starting reamer size. Portions of the rectus obscuring visualization were minimally elevated off the superior acetabulum. An anterior retractor was placed over the anterior wall between capsule and labrum and attached to the Gripper retraction system. The femur was rotated to 90 degrees and medial capsule was fully released until the lesser trochanter was palpable and visible; the femur was returned to 30 degrees. A posterior retractor was placed similarly between capsule and labrum. This provided excellent visualization. The contents of the cotyloid fossa were removed with electrocautery and the labrum was removed with a knife. There was significant chondromalacia of the superior acetabulum. Acetabular reaming began with a 46mm reamer. This first reaming was directed anterior to posterior and medial to get down to the true floor. This was inspected and reamed until the true floor was reached. The anterior retractor was then released and entry and exit was provided by traction on the capsular flaps. I then reamed sequentially up to a 50mm reamer where good fit was obtained. The larger reamers were oriented based on anatomical reference of the anterior and lateral zepeda to ensure proper abduction and anteversion. Positioning and size was confirmed with the fluoroscopy. A 50mm Depuy [place] acetabular component was selected. The acetabulum was reamed around the periphery with the selected acetabular size to prevent a rim fit. The deep tissues were irrigated. The acetabular component was then impacted in a position of about 40-45 degrees of abduction and 15-20 degrees of anteversion, using the patient?s anatomy as the ultimate landmark. Fluoroscopy was used to confirm this. There was excellent company marker of the acetabular component and the inserting handle was removed. The acetabular liner, Depuy [id number] polyethylene liner, was inserted and lined up with the tines of the acetabular component. There was no soft tissue interposition. The liner was then impacted into position and confirmed to be well-seated. A portion of the nigel-articular cocktail was then injected around the acetabulum into the capsule and periosteum. This cocktail consisted of 123mg of Ropivacaine, 0.25mg of Epinephrine, 0.04mg of Clonidine, and 15mg of Ketorolac, diluted to 50cc. The leg was rotated to 120 degrees. Any remaining medial capsule was released until the lesser trochanter was easily palpable. A retractor was placed medially. The lateral capsule was further released into the shoulder to allow access to the greater trochanter. A Soni retractor was placed over the greater trochanter which allowed the trochanter to flip in front of the capsule for excellent exposure. The leg was brought down into maximal extension and 20 degrees of adduction while ensuring there was no impingement on the acetabulum. Any remnant capsule within the trochanter was released. Piriformis and obturator externis were identified and protected. There was excellent access to the proximal femur. The lateral neck remnant was removed with a rongeur. A blunt canal probe was used to identify the canal and trajectory for later broaching. A box osteotome initiated the broach course. A small curved rasp and a curved curette were used to work laterally. Broaching then began with a starter Actis broach. This was inserted manually around the trochanter and into the canal before mallet blows. The broach was seated to a few millimeters below the cut level based on the neck cut and the preoperative template. Sequen tial broaching was continued with the Operatixse pneumatic broaching device until a tight fit was obtained with good rotational control of the femur. A trial standard neck was inserted along with a +1.5 trial head. The leg was brought out of extension and adduction and then reduced with traction and internal rotation. The leg was stable anteriorly in a position of 30 degrees of extension and 90 degrees of external rotation. Fluoroscopy was used to ensure there was no fracture and the stem was seated well. Leg lengths were checked with an AP pelvis and pelvic reference points. [employer] n avigation system was used to confirm appropriate positioning and leg length and offset. This demonstrated slightly under recreation of the offset and slight over recreation of the leg lengths. Therefore, I plan to advance approach 2 to 3 mm and go up to the +5 head for better recreation of her hip joint. Once content with the desired offset and leg lengths, the leg was brought back into extension, external rotation and adduction. The periosteum and surrounding tissue was injected with remaining portion of the nigel-articular cocktail. The proximal femur was irrigated as well as the deep tissues. The Oddcastuy Geomagicis standard collared stem, size 6, was then manually inserted into the proximal femur making sure to control rotation. It was then malleted into position with light blows, giving breaks to allow bone expansion and decrease risk of fracture. The selected Depuy Altrx Ceramic Head, size 32+5mm, was then placed onto the clean and dry trunnion and secured with impaction onto the tapered fit. The leg was brought back out of extension and adduction and reduced with traction and internal rotation. Stability was confirmed with no shuck at 90 degrees of external rotation and 30 degrees of extension. No impingement through range of motion arc. Final x-ray images were obtained with fluoroscopy to confirm adequate positioning and no intraoperative fracture. The deep tissues were thoroughly irrigated with Surgiphor, betadine solution. This was allowed to sit in the wound for 3 minutes before being thoroughly irrigated out with normal saline. The capsule was then reapproximated with the previously placed Ethibond sutures. The TFL fascia was finally closed with a No. 2 Stratafix, barbed suture. Deep tissues were then reapproximated with 0 Vicryl and a running 2-0 Vicryl. The skin was closed with a running 4-0 Monocryl in a subcuticular fashion. This was reinforced with skin glue. A Mepilex silver dressing was applied. At the end of the case, all counts were correct. Angelina was transferred to the hospital bed without difficulty and suffering no apparent complication. She has a good prognosis. Physical therapy will start today and without restri ctions, weight-bearing as tolerated. Aspirin 81mg BID will be used for DVT prophylaxis.
[2023-04-05] VITALS (13 sets, daily range): BP systolic 112–146; BP diastolic 53–82; PULSE 68–89; RESP 17–96; TEMP 36.5–36.6; O2SAT 92–97
[2023-04-05] MEDS: ceFAZolin 1 GM/50 ML BAG IVPB (00:15)
[2023-04-05] MEDS: Ketorolac 15 MG/ML VIAL IVP (01:17)
[2023-04-05] MEDS: Normal Saline Flush 10 ML SYR IVP ×2 (01:22→06:33)
--- NOTE | 2023-04-05 04:04 | NUR.NOTE ---
Nursing Note: Received bedside report from Lucy in ICU. Pt transferred via WC to Room 231. Assisted pt to bed. Placed NC @ 2L.. Oriented pt to bed, room, and call light. Connected SCDs. Instructed pt to call for assistance getting up or any additional needs.
--- NOTE | 2023-04-05 07:58 | W.PM.DS.N ---
Date of service: 04/05/23 Time of Service: 10:01 DS: Diagnosis Discharge Diagnosis (1) Degenerative joint disease of left hip: Status: Acute Discharge Plan Disposition Condition: Good Discharge Details Reason For Visit: Left hip DJD Admit Date/Time: 04/04/23 17:48 Admit Provider: Jacky Dash Attending Provider: Jacky Dash [facility]: Patient was admitted to the medical/surgical floor following the procedure for observation due to pain issues as well as some hypoxia while resting in the day surgery unit. The surgery was tolerated well without any notable medical, surgical, or anesthetic complications. Mobilization began postoperatively which was causing some severe intermittent pain about the lateral thigh which did improve with time. She was voiding spontaneously. Vitals were stable. Physical therapy worked with the patient and was cleared for discharge home. No acute medical issues. Pain was controlled on oral regimen. Home Meds and New Rx's Prescriptions: New acetaminophen 500 mg tablet 1,000 mg PO Q8H PRN Qty: 90 0RF Rx Instructions: Take two tablets up to every 8 hours as needed for pain aspirin 81 mg tablet,delayed release (DR/EC) 81 mg PO BID 30 Days Qty: 60 0RF celecoxib [Celebrex] 200 mg capsule 200 mg PO BID PRNQty: 60 0RF Rx Instructions: Take one tablet twice daily for pain and inflammation docusate sodium [Colace] 100 mg capsule 100 mg PO BID Qty: 30 0RF pantoprazole 40 mg tablet,delayed release (DR/EC) 40 mg PO DAILY 14 Days Qty: 14 0RF hydromorphone 2 mg tablet 2 mg PO Q4H PRNQty: 15 0RF Rx Instructions: Take one tablet up to every 4 hours as needed for severe postoperative pain Continued amlodipine 2.5 mg tablet 2.5 mg PO DAILY lisinopril 2.5 mg tablet 2.5 mg PO DAILY fluticasone propionate [Flonase Allergy Relief] 50 mcg/actuation spray,suspension 2 spray intranasal DAILY Qty: 16 12RF Rx Instructions: administer into each nostril ketoconazole 2 % cream 1 applic topical BID magnesium oxide 400 mg magnesium tablet 400 mg PO DAILY atorvastatin [Lipitor] 10 MG tablet 10 mg PO DAILY cholecalciferol (vitamin D3) 25 mcg (1,000 unit) capsule 25 mcg PO DAILY Trulicity 0.75 mg/0.5 mL pen injector 1.5 mg subcut QWEEK glipizide 2.5 mg tablet extended release 24hr 2.5 mg PO DAILY Discontinued acetaminophen 500 mg tablet 1,000 mg PO Q8H PRN (Reason: pain) Qty: 90 3RF Discharge Instructions Additional Instructions: Total Hip Discharge Instructions Activity: The most important activity is to walk. You should try to take short walks a few times a day. You have no restrictions on movement or positioning, but do not try to force what you do. You will find some stiffness and weakness with hip flexion (lifting your knee). Do not try to strengthen this too early, continue to practice walking and stairs and this will come. - Outpatient physical therapy can be helpful to help return you to a normal gait and improve your flexibility and strength. This can start around 2 weeks. For some patients, it?s not necessary. Usually this is determined at the time of discharge or at the first post-operative visit. - You should wear the TREMAYNE hose on both legs for 2 weeks. Dressing: Keep the surgical dressing in place for at least one week. After the first week it may be removed and replace with light gauze and tape or nothing. It may get wet after 3 days but avoid soaking the dressing. If it gets wet, just lightly pat dry. It is important to always keep some gauze between skin folds, especially when you are sitting. Spend some time with the wound exposed when you are lying flat as the incision does wrinkle onto itself. Medications: - You should take Tylenol and an anti-inflammatory Celebrex as your primary pain control medications. If the Celebrex is too expensive or not covered, please call the office for another alternative (Advil/Ibuprofen or Naproxen/Aleve). - You have been prescribed a stronger pain medication Hydromorphone for breakthrough pain, take as needed as prescribed. - You have also been prescribed a stomach acid reduction agent Pantoprozole to help reduce stomach acid and reflux. - You will be taking Aspirin 81mg twice a day for DVT prevention unless instructed otherwise. - If you have constipation you should take Colace (which has been prescribed) or Miralax (which is available [id number]). It takes most people 3-4 days to have a bowel movement. Follow-up: 2 weeks If you have any acute concerns or questions, please do not hesitate to contact the office at [phone]. You may contact Dr. Dash with any questions after hours through the hospital at [phone] or on his cell phone at [phone]. Stand Alone Forms: Anesthesia Discharge InstToyin Badillo (DSU) Referrals: Jacky Dash MD [ [facility] STAFF PHYSICIAN] - Equipment/Supplies: Walker Activity:: Elevate Remove Dressings/Wound Care:: Do Not Remove Shower/Bathe:: Cover Activity:: Activity as Tolerated Equipment/Supplies:: Walker Diet:: As Tolerated DS: Summary Time Spent with Patient providing and/or coordinating discharge services: Less than 30 minutes Status at Discharge Functional status at discharge: uses cane/walker Overall status at discharge: patient is progressing back to baseline Mental Status: mental status grossly normal Speech and Movement: speech and movement normal Mood: congruent mood Affect: normal affect Exam Const General: cooperative, healthy appearing, comfortable and no acute distress Extrem Other: Evaluation of the left side shows some swelling. No significant ecchymosis. Dressings clean dry and intact. She is able to actively demonstrate some hip flexion. She has active knee extension. Sensation intact to light touch over the femoral nerve distribution. Mild dysesthesias in the distribution of the lateral simultaneous nerve. She has intact ankle dorsiflexion, ankle plantarflexion, great toe extension and great toe flexion. Psych Mental Status: mental status grossly normal Speech and Movement: speech and movement normal Mood: congruent mood Affect: normal affect DS: Data Vitals/I&O Vitals and I&O: Vital Signs Temperature 36.7 C 04/04/23 23:30 Temperature Source Temporal Artery Scan 04/04/23 23:30 Pulse 86 04/04/23 23:30 Pulse Rhythm Regular 04/05/23 03:15 Pulse 68 04/05/23 01:10 Respiratory Rate 20 04/04/23 23:30 Respiratory Effort Normal 04/05/23 03:15 Respiratory Depth Normal 04/05/23 03:15 Respiratory Pattern Normal 04/05/23 03:15 Blood Pressure 129/60 04/04/23 23:30 Blood Pressure Mean 73 04/04/23 23:30 Blood Pressure Position Supine 04/04/23 18:38 Pulse Oximetry 97 07/12/23 07:46 Respiratory End-tidal CO2 39 04/04/23 14:15 Oxygen Delivery Method Nasal Cannula 04/05/23 07:46 Oxygen Flow Rate 1 04/05/23 07:46 Pain Level 2 04/05/23 03:18 Intake & Output 04/04/23 04/04/23 04/05/23 11:59 23:59 11:59 Intake Total 1806 / 1806 Output Total 350 / 350 125 / 125 Balance 1456 / 1456 -125 / -125 Weight 122.5 kg 122.5 kg Intake: IV 1016 / 1016 Oral 790 / 790 Output: Urine 125 / 125 Estimated Blood Loss 350 / 350 Other: Urine Color Yellow Yellow Urine Appearance Clear Clear Urine Odor Strong Comment sulfur Emesis Description None Voiding Methods Bedside Commode Toilet [facility] All Active Problems Spondylosis of lumbar region without myelopathy or radiculopathy (Chronic) Essential hypertension (Chronic) Diverticular disease (Chronic) Sciatica (Chronic) Diabetes mellitus (Chronic) controlled with oral agents Iliotibial band syndrome (Chronic) Chronic kidney disease, stage 3 (Chronic) Actinic keratitis (Chronic) Hypothyroidism (Chronic) Left tibialis posterior tendonitis (Chronic) Irritable bowel syndrome with diarrhea (Chronic) Adult body mass index greater than 30 (Chronic) Right hip pain (Chronic) Asthma (Chronic) Leukoplakia oral mucosa (Acute 12/04/14) This could be secondary to friction, lichen planus, or potentially thrush. I suspect it is secondary to friction between the cheek and the teeth. Left carpal tunnel syndrome (Acute) S/P ECTR: 07/07/2021 CKD (chronic kidney disease) (Chronic) Hyperlipidemia (Acute) Trochanteric bursitis of left hip (Acute) s/p Injection 04/29/22 Phlegm in throat (Acute) Postnasal drip (Acute) Nasal congestion (Acute) Tinnitus, bilateral (Acute) Sensorineural hearing loss, bilateral (Acute) Posterior tibial tendon dysfunction (PTTD) of right lower extremity (Acute) Pain, foot (Acute) Degenerative joint disease of left hip (Acute) Minimal on x-ray Depo-medrol injection: 12/29/22 Medical History COPD (chronic obstructive pulmonary disease) Pt. denies Diverticular disease Dysphagia Osteoarthritis Pes planus RBC microcytosis Ulcerative colitis Surgical History Arthroscopy, Shoulder (03/04/16) RIGHT SHOULDER/DR. ANTONIO Colonoscopy - IV Sedation frequently secondary to imflammatory bowel dz 2015 - nl. will begin routine schedule of surveillence H/O foot surgery (~01/2018) pes planus repair [facility] [place] History of surgery on arm (~02/2016) bicep rupture reattachment History of total right hip replacement (10/21/20) Repair of umbilical hernia 2006 Replacement of total knee joint bilateral knee replacements Rotator Cuff Repair 10/2011 Family History Brother Myocardial infarction sudden episode Mother Chronic obstructive lung disease Father Alzheimer's disease aunt Personal history of malignant neoplasm Social History Smoking/Tobacco Use Status: Former Tobacco Use Quit Date: 09/25/79 Smoking risk assessment performed?: Yes Alcohol Intake: current Alcohol Intake frequency: holidays/special occasions only Drug use: Never Substance use type: does not use Household members: spouse and other Details: [facility] Housing: house Number of Children: 2 number of grandchildren: 4 current occupation: 2018 retired [employer] Current gender identity: female What type of physical activity do you participate in: sedentary lifestyle and additional Details: Was physically active prior to injury of the foot Special crow needs: No Seatbelt use: always Do you feel safe at home: Yes Do you feel safe in your relationship?: Yes Female Reproductive History Menstrual Menopause type: natural History History 2 Para Hx # Term Pregnancies 2 Multiple births Hx # Pregnancies Ectopic pregnancies AB induced Hx Number of Living Children AB spontaneous Time Spent with Patient Time Spent with Patient: <45 minutes Time was spent: ordering medications,tests, procedures, counseling the patient and care coordination
[2023-04-05] MEDS: Magnesium Oxide 400 MG TAB PO (08:50)
[2023-04-05] MEDS: amLODIPine 2.5 MG TAB PO (08:51)
[2023-04-05] MEDS: Cholecalciferol (Vitamin D3) 1,000 UNIT TAB 1000 UNITS PO (08:51)
[2023-04-05] MEDS: Pantoprazole 40 MG TABCR PO (08:52)
[2023-04-05] MEDS: Atorvastatin 10 MG TAB PO (08:52)
[2023-04-05] MEDS: Lisinopril 2.5 MG TAB PO (08:52)
[2023-04-05] MEDS: Aspirin E.C. 81 MG TABEC PO (08:52)
--- NOTE | 2023-04-05 10:09 | PDOC.CMIN ---
Date of service: 04/05/23 Time of Service: 10:09 Care Management Initial Assmt Initial Assessment REASON FOR HOSPITALIZATION:: DJD PREVIOUS FUNCTIONAL STATUS/SOCIAL/FAMILY SUPPORTS:: Dori lives in [facility] with her . She has 2 adult children who live close by and supportive. 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 She is independent at baseline and does not receive any community services. CURRENT FUNCTIONAL STATUS:: Angelina was fully dressed waiting to be discharged when CM met with her. She stated that she felt well and was looking forward to going home. She denied the need for any services. ADVANCE DIRECTIVES:: none on file Has patient been provided with info about the portal/API?: Yes Did the patient sign up for the portal?: Yes CODE STATUS:: Full Code INSURANCE COVERAGE / FINANCIAL ISSUES:: [facility] Medicare Advantage Plan CURRENT HOME/COMMUNITY SERVICES/EQUIPMENT:: none PRIMARY CARE PHYSICIAN:: Gumaro Roberson POTENTIAL DISCHARGE NEEDS:: follow up with PCP and plan of care PATIENT/FAMILY EDUCATION NEEDS:: Review of discharge instructions, limitations, activity, follow up plan and discuss Ask Me Three TRANSPORTATION:: via private vehicle with PLAN:: Dori will be discharged home with no new services. She will follow up with her orthopedic surgeon, PCP and plan of care and transport with her . PFSH All Active Problems Spondylosis of lumbar region without myelopathy or radiculopathy (Chronic) Essential hypertension (Chronic) Diverticular disease (Chronic) Sciatica (Chronic) Diabetes mellitus (Chronic) controlled with oral agents Iliotibial band syndrome (Chronic) Chronic kidney disease, stage 3 (Chronic) Actinic keratitis (Chronic) Hypothyroidism (Chronic) Left tibialis posterior tendonitis (Chronic) Irritable bowel syndrome with diarrhea (Chronic) Adult body mass index greater than 30 (Chronic) Right hip pain (Chronic) Asthma (Chronic) Leukoplakia oral mucosa (Acute 12/04/14) This could be secondary to friction, lichen planus, or potentially thrush. I suspect it is secondary to friction between the cheek and the teeth. Left carpal tunnel syndrome (Acute) S/P ECTR: 07/07/2021 CKD (chronic kidney disease) (Chronic) Hyperlipidemia (Acute) Trochanteric bursitis of left hip (Acute) s/p Injection 04/29/22 Phlegm in throat (Acute) Postnasal drip (Acute) Nasal congestion (Acute) Tinnitus, bilateral (Acute) Sensorineural hearing loss, bilateral (Acute) Posterior tibial tendon dysfunction (PTTD) of right lower extremity (Acute) Pain, foot (Acute) Degenerative joint disease of left hip (Acute) Minimal on x-ray Depo-medrol injection: 12/29/22 Medical History COPD (chronic obstructive pulmonary disease) Pt. denies Diverticular disease Dysphagia Osteoarthritis Pes planus RBC microcytosis Ulcerative colitis Surgical History Arthroscopy, Shoulder (03/04/16) RIGHT SHOULDER/DR. ANTONIO Colonoscopy - IV Sedation frequently secondary to imflammatory bowel dz 2015 - nl. will begin routine schedule of surveillence H/O foot surgery (~01/2018) pes planus repair [place] History of surgery on arm (~02/2016) bicep rupture reattachment History of total right hip replacement (10/21/20) Repair of umbilical hernia 2006 Replacement of total knee joint bilateral knee replacements Rotator Cuff Repair 10/2011 Family History Brother Myocardial infarction sudden episode Mother Chronic obstructive lung disease Father Alzheimer's disease aunt Personal history of malignant neoplasm Social History Smoking/Tobacco Use Status: Former Tobacco Use Quit Date: 09/25/79 Smoking risk assessment performed?: Yes Alcohol Intake: current Alcohol Intake frequency: holidays/special occasions only Drug use: Never Substance use type: does not use Household members: spouse and other Details: [facility] Housing: house Number of Children: 2 number of grandchildren: 4 current occupation: 2018 retired [employer] Current gender identity: female What type of physical activity do you participate in: sedentary lifestyle and additional Details: Was physically active prior to injury of the foot Special crow needs: No Seatbelt use: always Do you feel safe at home: Yes Do you feel safe in your relationship?: Yes Female Reproductive History Menstrual Menopause type: natural History History 2 Para Hx # Term Pregnancies 2 Multiple births Hx # Pregnancies Ectopic pregnancies AB induced Hx Number of Living Children AB spontaneous
--- NOTE | 2023-04-05 14:17 | PDOC.CMDIS ---
Date of service: 04/05/23 Time of Service: 14:18 LACE Index Scoring Tool Questions: Length of Stay (in days): 1 Was the patient admitted via the E.D.?: No Comorbidities: Diabetes w/o Complication, Chronic Pulmonary Disease and Liver or Renal Disease E.D. Visits: 0 Answers: Total Score: 6 Risk of Readmission: Low Risk Care Management Discharge Plan Reason for Hospitalization: DJD Discharge Plan: Dori will be discharged home with no new services. She will follow up with her orthopedic surgeon, PCP and plan of care and transport with her . Patient/Family Education Needs: Review of discharge instructions, limitations, activity, follow up plan and discuss Ask Me Three
== END 2023-04-05 13:11 | disposition home or self-care (01) ==
LOC: SUR 14:24 → ICU 18:57 → MS 04-05 09:27 → ICU 04-10 14:54 → MS 04-10 14:55 → SUR 04-10 14:56
PROVIDERS: PCP Family Medicine; Visit Provider Student in an Organized Health Care Education/Training Program
PROC: (CPT 27130; principal; 2023-04-04 11:30)
DX: M16.12 Unilateral primary osteoarthritis, left hip (principal); J44.9 Chronic obstructive pulmonary disease, unspecified; M54.30 Sciatica, unspecified side; E11.22 Type 2 diabetes mellitus with diabetic chronic kidney disease; I12.9 Hypertensive chronic kidney disease with stage 1 through stage 4 chronic kidney disease, or unspecified chronic kidney disease; E03.9 Hypothyroidism, unspecified; K58.0 Irritable bowel syndrome with diarrhea; E78.5 Hyperlipidemia, unspecified; H90.3 Sensorineural hearing loss, bilateral; N18.32 Chronic kidney disease, stage 3b; Z79.84 Long term (current) use of oral hypoglycemic drugs
CPT/HCPCS: 27130; 20985; C1776; 97162; 97530; 73501; G0378; J0690; J1100; J1170; J1885; J2001; J2060; J2405; J3010; J3490

== ENCOUNTER 2023-04-20 15:28 | Outpatient (CLI) | payer MEDICARE, SELFPAY ==
--- NOTE | 2023-04-20 12:13 | DI.RAD_ITS ---
Exam(s) XR HIP LT COMPLETE AP PELVIS EXAM: XR HIP LT COMPLETE AP PELVIS CLINICAL HISTORY: FIRST POST OP LEFT GURPREET. TECHNIQUE: 2D digital imaging was performed. COMPARISON: CR XR HIP LT COMPLETE AP PELVIS from 12/29/2022 FINDINGS: Two views. Satisfactory position alignment the components of the recently placed left hip prosthesis . No fracture or loosening evident. Right hip prosthesis also again noted and appears satisfactory IMPRESSION: Satisfactory appearance. DATA REPOSITORY: RADIATION DOSE DELIVERED:
== END 2023-04-20 15:29 | disposition home or self-care (01) ==
LOC: DIORS 15:28
PROVIDERS: PCP Family Medicine; Referring Provider Family Medicine; Visit Provider Student in an Organized Health Care Education/Training Program
DX: Z96.642 Presence of left artificial hip joint (principal); Z47.1 Aftercare following joint replacement surgery; T81.31XA Disruption of external operation (surgical) wound, not elsewhere classified, initial encounter; E66.01 Morbid (severe) obesity due to excess calories; Z68.41 Body mass index [BMI] 40.0-44.9, adult
CPT/HCPCS: 73502

== ENCOUNTER → 2023-04-27 10:31 | Outpatient (BNVA) | payer MEDICARE, SELFPAY | PROVIDERS: PCP Family Medicine; Referring Provider Family Medicine; Visit Provider Student in an Organized Health Care Education/Training Program | DX: T81.31XD Disruption of external operation (surgical) wound, not elsewhere classified, subsequent encounter (principal); Z96.642 Presence of left artificial hip joint ==

== ENCOUNTER → 2023-05-04 14:15 | Outpatient (BNVA) | payer MEDICARE, SELFPAY | PROVIDERS: PCP Family Medicine; Referring Provider Family Medicine | DX: Z47.1 Aftercare following joint replacement surgery (principal); T81.31XA Disruption of external operation (surgical) wound, not elsewhere classified, initial encounter; Z96.642 Presence of left artificial hip joint ==

== ENCOUNTER → 2023-05-10 13:32 | Outpatient (BNVA) | payer MEDICARE, SELFPAY | PROVIDERS: PCP Family Medicine; Referring Provider Family Medicine | DX: Z47.1 Aftercare following joint replacement surgery (principal); T81.31XA Disruption of external operation (surgical) wound, not elsewhere classified, initial encounter; Z96.642 Presence of left artificial hip joint ==

== ENCOUNTER → 2023-05-18 10:11 | Outpatient (BNVA) | payer MEDICARE, SELFPAY | PROVIDERS: PCP Family Medicine; Referring Provider Family Medicine; Visit Provider Student in an Organized Health Care Education/Training Program | DX: Z47.1 Aftercare following joint replacement surgery (principal); T81.31XA Disruption of external operation (surgical) wound, not elsewhere classified, initial encounter; Z96.642 Presence of left artificial hip joint ==

== ENCOUNTER → 2023-06-01 09:37 | Outpatient (BNVA) | payer MEDICARE, SELFPAY | PROVIDERS: PCP Family Medicine; Referring Provider Family Medicine | DX: Z47.1 Aftercare following joint replacement surgery (principal); T81.31XA Disruption of external operation (surgical) wound, not elsewhere classified, initial encounter; Z96.642 Presence of left artificial hip joint ==

== ENCOUNTER → 2023-06-08 10:40 | Outpatient (BNVA) | payer MEDICARE, SELFPAY | PROVIDERS: PCP Family Medicine; Referring Provider Family Medicine | DX: Z47.1 Aftercare following joint replacement surgery (principal); Z96.642 Presence of left artificial hip joint; T81.31XA Disruption of external operation (surgical) wound, not elsewhere classified, initial encounter ==

== ENCOUNTER → 2023-07-13 09:32 | Outpatient (BNVA) | payer MEDICARE, SELFPAY | PROVIDERS: PCP Family Medicine; Referring Provider Family Medicine; Visit Provider Student in an Organized Health Care Education/Training Program | DX: Z47.1 Aftercare following joint replacement surgery (principal); Z96.642 Presence of left artificial hip joint | CPT/HCPCS: 99213 ==

== ENCOUNTER → 2023-07-21 10:04 | Outpatient (BNVA) | payer MEDICARE, SELFPAY | PROVIDERS: PCP Family Medicine; Referring Provider Family Medicine; Visit Provider Student in an Organized Health Care Education/Training Program | DX: Z47.1 Aftercare following joint replacement surgery (principal); Z96.642 Presence of left artificial hip joint ==

== ENCOUNTER → 2023-08-28 11:20 | Outpatient (BNVA) | payer MEDICARE, SELFPAY | PROVIDERS: PCP Family Medicine; Referring Provider Family Medicine; Visit Provider Student in an Organized Health Care Education/Training Program | DX: M70.62 Trochanteric bursitis, left hip (principal); M76.892 Other specified enthesopathies of left lower limb, excluding foot; Z96.642 Presence of left artificial hip joint | CPT/HCPCS: 20610; J1040 ==

== ENCOUNTER → 2023-10-09 09:12 | Outpatient (BNVA) | payer MEDICARE, SELFPAY | PROVIDERS: PCP Family Medicine; Referring Provider Family Medicine; Visit Provider Student in an Organized Health Care Education/Training Program | DX: Z47.1 Aftercare following joint replacement surgery (principal); Z96.642 Presence of left artificial hip joint; M70.62 Trochanteric bursitis, left hip | CPT/HCPCS: 99213 ==

== ENCOUNTER 2023-10-24 10:56 | Outpatient (CLI) | payer MEDICARE, SELFPAY ==
--- NOTE | 2023-10-24 10:48 | DI.RAD_ITS ---
Exam(s) XR HIP LT AP LAT ONLY EXAM: XR HIP LT AP LAT ONLY CLINICAL HISTORY: LEFT HIP PAIN. TECHNIQUE: 2D digital imaging was performed. COMPARISON: CR XR HIP LT COMPLETE AP PELVIS from 04/20/2023 FINDINGS: 2 views Position alignment of the components of the prosthesis remains satisfactory. No fracture or loosenin g evident. IMPRESSION: Stable satisfactory appearance of left hip prosthesis. DATA REPOSITORY: RADIATION DOSE DELIVERED:
== END 2023-10-24 10:57 | disposition home or self-care (01) ==
LOC: DIORS 10:56
PROVIDERS: PCP Family Medicine; Referring Provider Family Medicine; Visit Provider Student in an Organized Health Care Education/Training Program
DX: M76.892 Other specified enthesopathies of left lower limb, excluding foot (principal); M70.62 Trochanteric bursitis, left hip; M76.32 Iliotibial band syndrome, left leg; E66.01 Morbid (severe) obesity due to excess calories; Z68.42 Body mass index [BMI] 45.0-49.9, adult
CPT/HCPCS: 99214; 73502

== ENCOUNTER 2023-11-16 08:22 | Day surgery (SDC) | payer MEDICARE, SELFPAY ==
--- NOTE | 2023-11-15 16:57 | W.ANESPRE ---
General Info Date of Service Date Performed: 11/16/23 Height: 5 ft 5 in Weight: 129.274 kg Body Mass Index (BMI): 47.4 Surgical Procedure: Operation Date: 11/16/23 10:20 Proposed Procedure Side Surgeon p Endoscopic Iliiotibial Band Release w/ Trochanteric Bursectomy Left Yobany Cai MD Meds Allergies and Home Medications Allergies Allergy/AdvReac Type Severity Reaction Status Date / Time amoxicillin Allergy Unknown Skin Rash Verified 11/16/23 08:36 sulfamethoxazole Allergy Unknown Skin Rash Verified 11/16/23 08:36 [From Bactrim] trimethoprim [From Bactrim] Allergy Unknown Skin Rash Verified 11/16/23 08:36 oxycodone AdvReac Intermediate HALLUCINATI Verified 11/16/23 08:36 ONS Penicillins AdvReac RASH Verified 11/16/23 08:36 Sulfa (Sulfonamide AdvReac RASH Verified 11/16/23 08:36 Antibiotics) Home Medication Medication Instructions Recorded atorvastatin 10 mg tablet (Lipitor) 10 mg PO DAILY 12/06/13 amlodipine 2.5 mg tablet 2.5 mg PO DAILY 11/05/21 cholecalciferol (vitamin D3) 25 25 mcg PO DAILY 04/21/22 mcg (1,000 unit) capsule ketoconazole 2 % topical cream 1 applic topical BID 11/23/22 magnesium oxide 400 mg PO DAILY 11/23/22 dulaglutide 0.75 mg/0.5 mL 1.5 mg subcut QWEEK 12/29/22 subcutaneous pen injector (Trulicity) lisinopril 2.5 mg tablet 2.5 mg PO DAILY 12/29/22 glipizide 2.5 mg tablet, extended 2.5 mg PO DAILY 01/23/23 release 24 hr acetaminophen 500 mg tablet 1,000 mg (2 x 500 mg) PO Q8H PRN 04/04/23 pain #90 tabs docusate sodium 100 mg capsule 100 mg PO BID #30 caps 04/04/23 (Colace) fluticasone propionate 50 2 spray intranasal DAILY #48 grams 05/31/23 mcg/actuation nasal spray,suspension (Flonase Allergy Relief) gabapentin 100 mg capsule 300 mg PO QHS 10/24/23 Current Visit Medications: Current Medications Generic Name Dose Route Start Last Admin Trade Name Freq PRN Reason Stop Dose Admin Ringer's Solution 1,000 mls @ 30 mls/hr 11/16/23 06:00 IV 11/16/23 23:59 INFUSION AMANDA Cefazolin Sodium 3,000 mg/ 100 mls @ 200 mls/hr 11/16/23 06:00 Sodium Chloride IV 11/16/23 23:59 PREOP AMANDA IV Miscellaneous Supplies 1 each 11/16/23 06:00 Iv Access IV 11/16/23 23:59 DIRECTED AMANDA Sodium Chloride 0 ml 11/16/23 06:00 Normal Saline Flush 10 Ml Syr IV 11/16/23 23:59 PRN PRN Sodium Chloride 0 ml 11/16/23 06:00 Normal Saline 10 Ml Vial IJ 11/16/23 23:59 DIRECTED PRN Sterile Water 0 ml 11/16/23 06:00 Water,Injection,Sterile 10 Ml Vial IJ 11/16/23 23:59 DIRECTED PRN PFSH Active Problems Active Problems: Problem Status Onset Code Tendinitis of left hip flexor M76.892 Morbid obesity with BMI of 40.0-44.9, adult E66.01, Z68.41 Surgical wound dehiscence T81.31XA History of total left hip arthroplasty 04/04/23 Z96.642 Spondylosis of lumbar region without myelopathy or radiculopathy M47.816 Essential hypertension Diverticular disease Sciatica Diabetes mellitus Iliotibial band syndrome Chronic kidney disease, stage 3 Actinic keratitis Hypothyroidism Left tibialis posterior tendonitis Irritable bowel syndrome with diarrhea Adult body mass index greater than 30 Right hip pain Asthma Leukoplakia oral mucosa 12/04/14 K13.21 Left carpal tunnel syndrome G56.02 CKD (chronic kidney disease) N18.9 Hyperlipidemia E78.5 Trochanteric bursitis of left hip M70.62 Phlegm in throat R09.89 Postnasal drip R09.82 Nasal congestion R09.81 Tinnitus, bilateral H93.13 Sensorineural hearing loss, bilateral H90.3 Posterior tibial tendon dysfunction (PTTD) of right lower extremity M76.821 Pain, foot M79.673 Degenerative joint disease of left hip M16.12 Medical History Medical History Diverticular disease COPD (chronic obstructive pulmonary disease) Pt. denies Pes planus Osteoarthritis Dysphagia RBC microcytosis Ulcerative colitis Surgical History Surgical History History of surgery on arm (~02/2016) bicep rupture reattachment History of total right hip replacement (10/21/20) H/O foot surgery (~01/2018) pes planus repair [facility] [place] Replacement of total knee joint bilateral knee replacements Rotator Cuff Repair 10/2011 Repair of umbilical hernia 2006 Colonoscopy - IV Sedation frequently secondary to imflammatory bowel dz 2015 - nl. will begin routine schedule of surveillence Arthroscopy, Shoulder (03/04/16) RIGHT SHOULDER/DR. ANTONIO Tobacco Smoking/Tobacco Use Status: Former Tobacco Use Alcohol Alcohol Intake: current Alcohol intake frequency: holidays/special occasions only Substance Use Substance use: Never Substance use type: does not use Prental History History 2 Para Hx # Term Pregnancies 2 Multiple births Hx # Pregnancies Ectopic pregnancies AB induced Hx Number of Living Children AB spontaneous Vital Signs and Lab Results Vital Signs Most Recent Vital Signs in EMR: Temp Pulse Resp BP Pulse Ox 37.1 C 92 H 18 172/80 H 99 11/16/23 08:45 11/16/23 08:45 11/16/23 08:45 11/16/23 08:45 11/16/23 08:45 Lab Results Blood Type / Crossmatch: No Data to Display Complete Blood Count: No Data to Display Complete Metabolic Panel: No Data to Display Liver Function Panel: No Data to Display Coagulation Panel: No Data to Display Cardiac Panel: No Data to Display Arterial Blood Gas: No Data to Display Venous Blood Gas: No Data to Display Pancreas Panel: No Data to Display Thyroid Panel: No Data to Display Infectious Disease: No Data to Display Blood Cultures: No Data to Display Toxicology Panel: No Data to Display Imaging and Studies Imaging and Studies Study information below may be from another EMR and interpreted by another provider. Please see original notes in EMR for more complete details. EKG Summary: EKG PATIENT NAME: Dori New #: [id number] ORDERING PROVIDER: Paty Dsouza M.D. PRIMARY CARE PROVIDER:BETHEL ROBERSON MD DATE/TIME OF SERVICE: 10/03/21919 : 1955PERFORMING LOCATION: ER APPROVED REPORT Exam: Resting ECG Reason for Exam: sob Patient Location: E HR:105 bpm ECG Measurements Heart Rate 105 AXIS [place] 182 P 63 QRSd 88 QRS 30 QT 336 [id number] QTc 444 Conclusion Sinus tachycardia...rate> 99 <Electronically signed by PATY DSOUZA MD in OV> E-Sign Date: 10/03/21 E-Sign Time: 920 ADDENDUM APPROVED REPORT Exam: Resting ECG Reason for Exam: sob Patient Location: E HR:105 bpm ECG Measurements Heart Rate 105 AXIS [place] 182 P 63 QRSd 88 QRS 30 QT 336 [id number] QTc 444 Conclusion Sinus tachycardia...rate> 99 I have reviewed and I agree with the emergency room physician's ECG interpretation. Electronically signed by: <Electronically signed by Merissa Ngo M.D. in OV> 10/04/21 0819 Cosigned by: Echocardiogram Summary: Patient Name: Dori New #: [id number]: DI Ordering Provider: Yaakov Roberson #: [id number]: REG I Primary Care Provider: Sung Roberson of Exam: 03/27/23Sex: F Admission Date: 03/27/23 : 1955 Age: 67 APPROVED REPORT EXAM: Comprehensive 2D, Doppler, and color-flow Echocardiogram Patient Location: Out-Patient Deputy Director Of Finance: Betty Schwarz RDCS (AE) Indications: Systolic heart murmur, DM, COPD, HTN, Pre op joint replacement Other Information Study Quality: Fair. Technically limited study due to body habitus, inability to position patient exam done supine, hip pain unable to turn. Conclusion Technically limited study Left ventricle appears normal and wall thickness, chamber size and systolic function. EF is 60%. No segmental wall motion abnormalities are seen Normal right ventricular size and systolic function Both atria are normal in size Aortic valve is calcified without stenosis or regurgitation There is no additional structural or hemodynamically significant valvular disease Wall motion Left Ventricle Technically limited parasternal imaging. The overall left ventricular systolic function appears normal. There is normal LV segmental wall motion. There is no ventricular septal defect visualized. LVEF is 60%. Right Ventricle The right ventricle is normal size. The right ventricular systolic function is normal. Atria The left atrium size is normal. The right atrium size is normal. The interatrial septum is intact with no evidence for an atrial septal defect. Aortic Valve Aortic valve is calcified. Number of aortic valve leaflets could not be assessed. No hemodynamically significant valvular aortic stenosis. No aortic regurgitation is present. Mitral Valve The mitral valve is normal in structure. No evidence of mitral valve stenosis. Trace mitral regurgitation. Tricuspid Valve The tricuspid valve is normal in structure. There is no tricuspid valve stenosis. Trace tricuspid regurgitation. Unable to assess PA pressure. Pulmonic Valve Pulmonic valve is not well visualized. There is no pulmonic valvular stenosis. There is no pulmonic valvular regurgitation. Great Vessels The aortic root is normal in size. Ascending aorta is not well visualized. Descending aorta is not well visualized. IVC is normal in size and collapses >50% with inspiration. Pericardium There is no pericardial effusion. 2D Dimensions Ao Root d 3.29 cm F: 2.7 - 3.3LV Vol A2C d MOD 88.1 mL RA Area A4C11.33 cm2LV Vol A4C d MOD 111.5 mL RA Vol/ BSA A4C s A-L 10.0 mL/m2LA vol/ BSA A2C s A-L28.5 mL/m2 LVEF (Rod's)58.46 % F: 54 - 74LA vol/ BSA A4C s A-L13.5 mL/m2 LV Hveddr16.88 mL F: 46 - 106LA Vol/ BSA Biplane s A-L 23.6 mL/m2 LV Volume Index34.19 mL/m2 F: 29 - 61LA Area A4C s MOD 12.54 cm2 LV Vol Biplane MOD 102.7 mLLA Area A2C s MOD 21.96 cm2 LV EF A4C MOD 59.4 % LV EF A2C MOD 58.7 % LV EF Biplane MOD 58.5 % SV60.07 mL SV Index27.48 mL/m2 M-Mode TAPSE 2.73 cm (M/F) >1.7 LV Diastology MV E' medial0.076 (>0.07 m/s)E/A Ratio 0.8 LV E/e MED7.45 (<14)MV E Vmax 0.57 (0.4-1.3 m/s) MV E' lateral0.082 (>0.1 m/s)MV A Vmax 0.70 (0.4-1.3 m/s) LV E/e LAT6.90 (<14)MV E/A Ratio 0.80 MV E/E' medial 7.47 MV E/E' lateral6.93 Aortic Valve LVOT Area3.64 cm2AoV Area Vmax2.11 cm2 LVOT Vmax 1.24 m/sAoV Area/ BSA (Vmax)0.96 cm2/m2 LVOT Mean Charlie.0.77 m/sAVA Mean Charlie.1.80 cm2 LVOT Peak Grad 6.1 mmHgAVA Mean Charlie. Index0.82 cm2/m2 LVOT Mean Grad 2.9 mmHg LVOT VTI0.251 m LVOT Diam s 2.15 cm AoV Vmax2.14 m/s Velocity Ratio 0.58 AoV Mean Charlie.1.56 m/s AoV Peak Grad18.3 mmHg LVOT SV 91.47 mL AoV Mean Grad10.7 mmHg AoV VTI0.431 m AoV Area VTI2.12 cm2 AoV Area/ BSA (VTI)0.97 cm/m2 Mitral Valve MV DT 307 (160-240 msec) MV PHT89 msec MV Area PHT 2.47 cm2 MV VTI 0.211 m MV Area VTI 4.34 (4.0-6.0 cm2) Pulmonary Valve PV Vmax 1.19 (0.5-1.5 m/s)RVOT Peak Gr.4.10 mmHg PV Peak Grad 5.6 mmHgRVOT Mean Gr.2.20 mmHg PV Mean Grad 2.9 mmHgRVOT VTI0.211 m PV VTI 0.242 mRVOT Vmax 1.01 m/s Ordered By: Bethel Roberson CC: Anesthesia Assessment and Plan Anesthesia History Personal History: No History of Anesthesia Complications Family History: No Family History of Anesthesia Complications Exercise Tolerance Exercise Tolerance: Metabolic Equivalents>4 Cardiac & Pulmonary Exam Cardiac Exam: Normal S1/S2 Heart Sounds Pulmonary Exam: Clear Bilateral Breath Sounds Implantable Cardiac Device Does patient have a Pacemaker or an ICD?: No Airway Exam Known Difficult Airway: No Mallampati Class: 2 Mouth Opening: Normal (> 3cm) Thyromental Distance: Greater than 3 cm Neck Range of Motion: Full ROM Neck Circumference: Normal Teeth Condition: Generalized Poor Dentition and Loose or Chipped ASA Classification ASA Score: ASA 3 Emergency Case?: No NPO Status NPO Status: NPO Clears >2 hours, Solids >8 hours Anesthesia Plan Resuscitation Status: Full Code Anesthesia Technique: General Anesthesia Airway Planned: Endotracheal Tube Monitors Used: Standard Monitors Preoperative Comments:: 68 yo female for hip scope. Sig PMHx: HTN (amlodipine, lisinopril), COPD, DM (trulicity, glipizide), hypothyroid, CKDIII, former smoker, occ EtOH Previous Anes: - GURPREET x 2, spinal, prop sedation, no issues. - ECTR, prop, natural airway. - bakers cyst, LMA 5, no issues. - bicep tendon, LMA 4.
[2023-11-16] VITALS (28 sets, daily range): BP systolic 105–177; BP diastolic 32–80; PULSE 74–98; RESP 10–18; TEMP 36–37.1; O2SAT 86–99; BMI 47.4
--- NOTE | 2023-11-16 07:23 | ROE_ITS ---
Date of service: 11/16/23 Time of Service: 10:30 Operative Note Operative Note DATE OF PROCEDURE: 11/16/23 PRE-OP DIAGNOSIS: Left hip 1. Iliotibial band syndrome 2. Trochanteric bursitis 3. Gluteal tendon tear POST-OP DIAGNOSIS: same PROCEDURE: Left hip endoscopic 1. Iiliotibial band release, CPT# 74210 2. Trochanteric bursectomy, CPT# 36475 3. Gluteal tendon repair, CPT# 27205 SURGEON: Yobany Cai REGULATORY COMPLIANCE SPECIALIST: Gene Cabrera ANESTHESIA TYPE: Local By Surgeon, General LMA/ETT and Primary Nerve Block Refer to Anesthesia Record ESTIMATED BLOOD LOSS: 30 COMPLICATIONS: None Patient was transported to: PACU Patient's condition: stable Implants: Arthrex 5.5 mm SwiveLock Indications: Please see complete medical record for details. Findings: Thickened iliotibial band. Inflamed abundant trochanteric bursitis. Moderately large gluteus minimus and medius tearing from the anterior and lateral trochanter with significant undersurface involvement, no significant tendon retraction Procedure Description: In the operating room, general anesthesia was induced. The patient was positioned supine on the [place] operating room table. All bony prominences were well-padded. Preoperative antibiotics were administered. The hip was prepped and draped in the usual sterile fashion. The correct patient, procedure, and side of the procedure were all verified prior to incision. 60 cc of 0.25% bupivacaine containing epinephrine was infiltrated about the subcutaneous tissues for the planned anterior lateral and distal anterolateral portals as well as deeply over the greater trochanter. A knife was used to incise the skin for the anterior lateral and distal anterolateral portals followed by blunt dissection subcutaneously. Under fluoroscopic guidance, a switching stick and arthroscope were inserted localizing the iliotibial band over the greater trochanter. Blunt dissection and the mechanical shaver were used to resect fat and overlying tissue about the center of the iliotibial band and carefully expose the anterior and posterior margins. Once there was adequate exposure of the IT band, the greater trochanter was again localized under fluoroscopic guidance with a spinal needle inserted through the skin down to bone. This central area was marked using the radiofrequency ablator. A [place] blade was brought in and used to create a 2 cm longitudinal incision in line with the IT band fibers as well as extending it in a cruciate fashion with 2 cm incisions anteriorly and posteriorly. The radiofrequency ablator was used to achieve hemostasis. The mechanical shaver was then used to debride the IT band released edges exposing the trochanteric bursa. The mechanical shaver was then used to excise the trochanteric bursa taking care to protect musculature about the margins of the greater trochanter as well as neurovascular structures especially posteriorly. There was excellent visualization of the vastus lateralis as well as gluteus medius confirming appropriate bursa excision. The hip was brought through range of motion including internal and external rotation and there was no impinging iliotibial band tissue or remaining pathologic bursa. The viewing and working portals were switched and appropriate IT band release and trochanteric bursa excision confirmed. The gluteus minimus and medius junction had an obvious split tearing that was more carefully inspected. It was readily lifted off the anterior and lateral greater trochanter revealing a moderately large tear of these 2 tendons. There was no significant tendon retraction, but there was tendon thinning and somewhat poor tendon quality. The cuff grasper was used to confirm reduction and reapposition of both tendons over the trochanter footprint. The tendon quality did seem appropriate to repair although it would be challenging given the likely chronicity as demonstrated by the thinning tendon, fibrinous bone changes beneath, and the patient morbid obesity. The footprint was prepared with a shav er and a rasp to optimize bone tendon healing. The self retrieving suture passer was used to place an inverted horizontal mattress FiberTape in the midportion of the tear taken wide tissue grams of the gluteus medius. The scorpion was then used to place a suture tape FiberLink incorporating the posterior most aspect of the gluteus medius tear. The repair was localized and an undersized punch used for the suture anchor, but the punch was which was being directed carefully impacted the hip replacement so it was removed, redirected more distal and posterior to avoid bone tunnel conversion and hip replacement, and was readily inserted into the poor greater tuberosity bone without any problems around hip replacement or prior hole. An oversized anchor was then selected given the poor bone quality, repair sutures threaded through the eyelet, and anchor successfully deployed with reasonably good bone purchase and good reduction and tissue hold on the gluteal medius. The sliding repair suture was then shuttled through the gluteus minimus using the scorpion and secured over the anterior aspect of the defect with SMC arthroscopic knots. The remaining sliding suture was not needed and removed. The repair tested inspected through range of motion and stable. The patient blood pressure had been somewhat elevated during the case, time was taken to achieve appropriate hemostasis although the initial bone punch hole was still bleeding, the endoscopic space was drained with suction. The distal portal had a vein that was bleeding, and the Bovie was used to coagulate this vessel, and the endoscopic space was refilled with saline and a clot was nicely formed without any active bleeding over the repair area from the punch to bone holes. Suction was used to remove fluid from the endoscopic space. The portals were closed using 3-0 Monocryl in a buried fashion. Steri-Strips were applied over the incisions followed by Xeroform, 4 x 4 gauze, an ABD pad, and secured with tape. The patient awoke from anesthesia without complication and was transferred to the recovery room in a stable condition.
[2023-11-16] MEDS: Lactated Ringers 1,000 ML 30 ML IV ×2 (09:03→12:46)
--- NOTE | 2023-11-16 10:01 | W.PM.DSUDISC ---
Date of service: 11/16/23 Time of Service: 14:00 Discharge Plan Disposition Patient Disposition: Home Condition: Stable Discharge Details Attending Provider: Yobany Cai Primary Care Provider: Gumaro Roberson [place] Meds and New Rx's Prescriptions: New aspirin 81 mg tablet,delayed release (DR/EC) 81 mg PO DAILY 14 Days Qty: 14 0RF naproxen 250 mg tablet 250 - 500 mg PO BID PRN (Reason: Moderate pain) Qty: 40 0RF tramadol 50 mg tablet 50 mg PO Q8H PRN (Reason: severe pain (scale score 7-10)) Qty: 12 0RF Continued amlodipine 2.5 mg tablet 2.5 mg PO DAILY lisinopril 2.5 mg tablet 2.5 mg PO DAILY ketoconazole 2 % cream 1 applic topical BID magnesium oxide 400 mg magnesium tablet 400 mg PO DAILY gabapentin 100 mg capsule 300 mg PO QHS atorvastatin [Lipitor] 10 MG tablet 10 mg PO DAILY cholecalciferol (vitamin D3) 25 mcg (1,000 unit) capsule 25 mcg PO DAILY Trulicity 0.75 mg/0.5 mL pen injector 1.5 mg subcut QWEEK glipizide 2.5 mg tablet extended release 24hr 2.5 mg PO DAILY fluticasone propionate [Flonase Allergy Relief] 50 mcg/actuation spray,suspension 2 spray intranasal DAILY Qty: 48 4RF Rx Instructions: administer into each nostril acetaminophen 500 mg tablet 1,000 mg PO Q8H PRN Qty: 90 0RF Rx Instructions: Take two tablets up to every 8 hours as needed for pain docusate sodium [Colace] 100 mg capsule 100 mg PO BID Qty: 30 0RF Discharge Instructions Additional Instructions: Surgery: Left hip endoscopy with iliotibial band release, trochanteric bursectomy, and gluteal tendon repair Activity: Protected weightbearing with a walker for 8 weeks. Gentle hip range of motion. No strengthening for 3 months. A physical therapy prescription will be sent electronically to begin in about 3 weeks. Prescriptions: Aspirin 81 mg take 1 daily to prevent a blood clot for 2 weeks, starting tomorrow morning Naproxen 250 mg take 1-2 every 12 hours with a meal as needed for moderate pain Tramadol 50 mg take 1 every 6-8 hours as needed for severe pain You may use [id number] Tylenol (acetaminophen) as needed for mild pain. These pain medications may be taken all at once or in different combinations as needed. Also, recommend Colace (docusate) as a stool softener as surgery and pain medicine cause constipation. You may try urpv-jic-clwmmxn diphenhydramine (Benadryl) 25-50 mg nightly as a sleep aid Dressings: Leave dressing in place for 3 days. It is common for the dressing to become pink as the fluid around your thigh drains. If they become wet, remove and replace with dry gauze and tape. May then remove and leave open to air or cover incisions with Band-Aids. Leave the sticky Steri-Strips in place until they fall off or remove them after you shower. May shower after 5 days. Follow-up: 10-[address] Cai You may take off the leg compression stockings this evening at home. You may also leave them on a few days longer if you have a history of leg swelling or edema. Let us know right away if you develop any redness, drainage, fevers, chest pain, or trouble breathing. Do not drink alcohol or drive for at least 24 hours after anesthesia. Please call the office during business hours with any questions or concerns. Stand Alone Forms: Anesthesia Discharge InstAby, Toyin Florian (DSU) Discharge Orders Discharge Orders: Discharge Order (Routine); Ordered 11/16/23 Ordered By: Yobany Cai DS: Diagnosis Discharge Diagnosis (1) Trochanteric bursitis of left hip: Status: Acute (2) Tear of left gluteus medius tendon: Status: Acute (3) Iliotibial band syndrome of left side: Status: Acute
[2023-11-16] MEDS: ceFAZolin 3,000 MG in Normal Saline 100 ML 200 MG IV (10:08)
[2023-11-16] MEDS: Tranexamic Acid 1,000 MG/10 ML VIAL 1000 MG (10:21)
[2023-11-16] MEDS: Bupivacaine 0.25% Pres-Free 30 ML VIAL (10:53)
[2023-11-16] MEDS: EPINEPHrine 10 MG/10 ML ML ×2 (10:55→11:13)
--- NOTE | 2023-11-16 11:50 | W.ANESVAS ---
Arterial Line Placement Date Performed: 11/16/23 Procedure Time: 11:40 Procedure Location: Operating Room Requesting Provider: Reed Chavarria Timeout Performed: No Sedation Given (Indicate Dose Given): No Sedation given Patient Mental Status: Performed under general anesthesia Sterility: Hand Hygiene, Surgical Cap, Surgical Mask, Sterile Gloves and Chlorhexidine Laterality: Right Insertion Site: Radial Arterial Line Catheter: 20G Arrow Arterial Line Procedure: Vessel accessed with catheter over needle Dressing: Tegaderm Applied Ultrasound: Sterile probe cover and gel used Ultrasound Image Saved?: Yes Number of Attempts (See previous attempts in note section): 1 Procedure Tolerated: No Complications Procedure Outcome: Successful Performed By: Reed Chavarria
--- NOTE | 2023-11-16 12:20 | DI.RAD_ITS ---
Exam(s) XR HIP LT IN OR EXAM: XR HIP LT IN OR CLINICAL HISTORY: Trochanteric bursitis Iliotibial band syndrome TECHNIQUE: 2D and realtime digital imaging was performed. CONTRAST MATERIAL: Refer to procedure report. COMPARISON: CR XR HIP LT AP LAT ONLY from 10/24/2023 FINDINGS: Fluoroscopy was provided for Dr. Cai during the performance of a left total hip replacement. Ple ase refer to the procedure report for complete details. Ka,r=7.96 mGy IMPRESSION: RADIATION DOSE DELIVERED:
[2023-11-16] MEDS: HYDROmorphone 2 MG/ML SYR IVP ×2 (12:43→13:06)
--- NOTE | 2023-11-16 13:00 | W.ANESPOSTOP ---
Postoperative Evaluation Date, Time and Location Date Performed: 11/16/23 Time Performed: 13:01 Patient Location: PACU Vital Signs Most Recent Imported Vital Signs: Most Recent Vital Signs Temp Pulse Resp BP Pulse Ox 36.7 C 78 15 113/49 L 95 11/16/23 12:46 11/16/23 12:46 11/16/23 12:46 11/16/23 12:46 11/16/23 12:46 Pain Score Most Recent Pain Score: Most Recent Pain Score Pain Level 7 11/16/23 12:46 Assessment Mental Status: Awake (Alert & Oriented to Patient Baseline) Airway and Respiratory Function: Patent airway with normal (patient baseline) respiratory exam Cardiovascular Function: Hemodynamically Stable Hydration Status: Adequately Hydrated Nausea & Vomiting: No Nausea or Vomiting Pain: Pain is tolerable per patient Peripheral Nerve Block: Patient did not receive a nerve block
[2023-11-16] MEDS: Normal Saline 10 ML VIAL IJ (13:01)
--- NOTE | 2023-11-16 14:56 | W.ANESPOSTOP ---
Postoperative Evaluation Date, Time and Location Date Performed: 11/16/23 Time Performed: 14:56 Patient Location: Day Surgery Unit Vital Signs Most Recent Imported Vital Signs: Most Recent Vital Signs Temp Pulse Resp BP Pulse Ox 36.1 C L 84 14 125/54 L 89 L 11/16/23 14:34 11/16/23 14:34 11/16/23 14:34 11/16/23 14:34 11/16/23 14:52 Most Recent Vital Signs Temp Pulse Resp BP Pulse Ox 36.7 C 78 15 113/49 L 95 11/16/23 12:46 11/16/23 12:46 11/16/23 12:46 11/16/23 12:46 11/16/23 12:46 Pain Score Most Recent Pain Score: Most Recent Pain Score Pain Level 8 11/16/23 14:34 Assessment Mental Status: Awake (Alert & Oriented to Patient Baseline) Airway and Respiratory Function: Abnormal Respiratory exam (See explanation) (IS being encouraged. ) Cardiovascular Function: Hemodynamically Stable Hydration Status: Adequately Hydrated Nausea & Vomiting: No Nausea or Vomiting Pain: Pain is tolerable per patient Peripheral Nerve Block: Patient did not receive a nerve block
[2023-11-16] MEDS: Ketorolac 15 MG/ML VIAL IVP (14:59)
[2023-11-16] MEDS: Albuterol/Ipratropium 3 ML UPD VIAL UPD (15:35)
== END 2023-11-16 17:00 | disposition home or self-care (01) ==
PROVIDERS: PCP Family Medicine; Visit Provider Student in an Organized Health Care Education/Training Program
PROC: (CPT 29863; principal; 2023-11-16 10:00)
DX: M70.62 Trochanteric bursitis, left hip (principal); S76.012A Strain of muscle, fascia and tendon of left hip, initial encounter; M76.32 Iliotibial band syndrome, left leg; X58.XXXA Exposure to other specified factors, initial encounter
CPT/HCPCS: 27305; 27006; 27062; 73501; J0131; J0665; J0690; J1100; J1170; J1885; J2250; J2371; J2405; J2704; J3010; J3475; J7620

== ENCOUNTER → 2023-11-30 13:00 | Outpatient (BNVA) | payer MEDICARE, SELFPAY | PROVIDERS: PCP Family Medicine; Referring Provider Family Medicine | DX: S76.012D Strain of muscle, fascia and tendon of left hip, subsequent encounter (principal); X58.XXXD Exposure to other specified factors, subsequent encounter; M76.32 Iliotibial band syndrome, left leg; M70.62 Trochanteric bursitis, left hip ==

== ENCOUNTER 2023-12-12 12:37 | Outpatient (REF) | payer MEDICARE, SELFPAY ==
[2023-12-12 15:52] LABS: Hemoglobin A1C 7.4 % (<5.7)
[2023-12-12 15:54] LABS: Anion Gap 11.4 mmol/L (3-11); BUN 25 mg/dL (7-18); CO2 27.6 mmol/L (21.0-32.0); CREATININE 1.4 mg/dL (0.55-1.02); Calcium 9.8 mg/dL (8.5-10.1); Chloride 105 mmol/L (98-107); Estimated GFR 41.24 (mL/min/1.73m2); Glucose 130 mg/dL (74-106); Potassium 4.8 mmol/L (3.5-5.1); Sodium 144 mmol/L (136-145)
== END 2023-12-12 12:38 | disposition home or self-care (01) ==
LOC: NCHCN 12:37
PROVIDERS: PCP Family Medicine; Visit Provider Family Medicine
DX: E11.21 Type 2 diabetes mellitus with diabetic nephropathy (principal); N18.32 Chronic kidney disease, stage 3b
CPT/HCPCS: 80048; 83036

== ENCOUNTER → 2024-01-03 11:12 | Outpatient (BNVA) | payer MEDICARE, SELFPAY | PROVIDERS: PCP Family Medicine; Referring Provider Family Medicine; Visit Provider Student in an Organized Health Care Education/Training Program | DX: S76.012D Strain of muscle, fascia and tendon of left hip, subsequent encounter (principal); X58.XXXD Exposure to other specified factors, subsequent encounter; M70.62 Trochanteric bursitis, left hip ==

== ENCOUNTER → 2024-02-13 02:59 | Outpatient (CLI) | payer MEDICARE, SELFPAY ==
--- NOTE | 2024-02-13 08:13 | DI.MAMMO_ITS ---
Exam(s) MAMMO SCREENING EXAM: MAMMO SCREENING CLINICAL HISTORY: Z12.31 Screening TECHNIQUE: Mammograms were interpreted according to the usual protocol including computer analysis w [employer] CAD system, tomosynthesis and C-view imaging. COMPARISON: 2014 through 2022 FINDINGS: The breasts are composed of scattered fibroglandular densities, Breast Density category B. No suspicious masses or suspicious microcalcifications are seen. No skin thickening or abnormal axillary lymph nodes are seen. There has been no significant change from prior exams. IMPRESSION: BI-RADS Category 1, Negative mammogram Yearly screening mammography is recommended. Breast Density - Category B, scattered fibroglandular densities. A negative radiographic report should not delay biopsy if a dominant or clinically suspicious mass is present. Up to ten percent of cancers are not identified on mammography. A negative report may reinforce clinical impression. Adenosis and dense breasts may obscure an underlying neoplasm. False positive reports average 6 to 10%. Patient will receive a letter notifying them of these results.
== END ==
PROVIDERS: PCP Family Medicine; Visit Provider Family Medicine
DX: Z12.31 Encounter for screening mammogram for malignant neoplasm of breast (principal)
CPT/HCPCS: 77063; 77067

== ENCOUNTER → 2024-03-06 11:11 | Outpatient (BNVA) | payer MEDICARE, SELFPAY | PROVIDERS: PCP Family Medicine; Referring Provider Family Medicine; Visit Provider Student in an Organized Health Care Education/Training Program | DX: S76.012D Strain of muscle, fascia and tendon of left hip, subsequent encounter (principal); X58.XXXD Exposure to other specified factors, subsequent encounter; M70.62 Trochanteric bursitis, left hip; M76.32 Iliotibial band syndrome, left leg | CPT/HCPCS: 99213 ==

== ENCOUNTER 2024-06-25 14:44 | Outpatient (REF) | payer MEDICARE, SELFPAY ==
[2024-06-25 18:52] LABS: ALT 15 U/L (14-59); AST 24 U/L (15-37); Albumin 3.7 g/dL (3.4-5.0); Alkaline Phosphatase 111 U/L (46-116); Anion Gap 7.8 mmol/L (3-11); BUN 25 mg/dL (7-18); Bilirubin, Total 0.56 mg/dL (0.2-1.0); CO2 29.2 mmol/L (21.0-32.0); CREATININE 1.6 mg/dL (0.55-1.02); Calcium 10.1 mg/dL (8.5-10.1); Calculated LDL 83 mg/dL (<100); Chloride 102 mmol/L (98-107); Cholesterol 161 mg/dL (<200); Estimated GFR 34.91 (mL/min/1.73m2); Glucose 149 mg/dL (74-106); HDL Cholesterol 56 mg/dL (40-60); Potassium 4.7 mmol/L (3.5-5.1); Sodium 139 mmol/L (136-145); Total Protein 8.4 g/dL (6.4-8.2); Triglyceride 111 mg/dL (<150)
[2024-06-25 18:53] LABS: Hemoglobin A1C 7.2 % (<5.7)
[2024-06-25 19:55] LABS: COMMENT (LAB VIEW ONLY) 71.36 mg/dL; Microalb ug/mg Crea 36.2 ug/mg Cr
== END 2024-06-25 14:45 | disposition home or self-care (01) ==
LOC: NCHCN 14:44
PROVIDERS: PCP Nurse Practitioner Family; Visit Provider Nurse Practitioner Family
DX: E78.5 Hyperlipidemia, unspecified (principal); E11.9 Type 2 diabetes mellitus without complications
CPT/HCPCS: 80053; 80061; 82043; 82570; 83036

== ENCOUNTER 2024-08-05 01:19 | Outpatient (CLI) | payer MEDICARE, SELFPAY ==
--- NOTE | 2024-08-05 08:57 | ST.MBS ---
Date of Service Date of service: 08/05/24 Time of Service: 09:00 Modified Barium Swallow Study Findings: Video fluoroscopic Swallowing Evaluation (VFSE) / Modified Barium Swallow Study (MBSS) Speech Language Pathology Report Patient referred for VFSE/MBSS from Dr. Knight given dysphagia. HPI & Patient report of function: Angelina New is a 69 year old female with complaint of food (eg hamburger) and pills sticking in R side of throat several times per week. She notes this has been ongoing for almost one year. She describes symptoms as fluctuating/intermittent. She also feels that mucous pools here- and will self-massage to aid in release. Angelina also complains of food frequently sticking in sternal region- this is daily. She denies history of acid reflux/GERD or pneumonia. She does endorse post nasal drip, managed with Mucinex. Pertinent PMHx: Diabetes mellitus, Irritable bowel syndrome, Postnasal drip, obesity Previous Imaging: Flexible nasolaryngoscopy performed by Dr Knight 07/18/24 was WNL. No nodules, polyps, ulcers, erythema, or signs of LPR. No prior MBSS. No recent GI work up. IMPRESSIONS: Oral pharyngeal swallow function is well within normal limits for age. No evidence of anatomical, sensory, or motor deficit. See below for further breakdown. Within the esophageal sweep, there is significant esophageal stasis. This begins in the mid-sternal region and continues into the lower esophagus, remaining despite liquid wash. Did not test barium tablet in light of patient verbalizing high anxiety due to size of pill. Recommend referral to endoscopy for further assessment of the esophagus, pathology rule out, and consideration of dilation. In regards to symptoms of R side pharyngeal dysphagia- no abnormality appreciated as assessed in lateral and A-P view. Question if transferred sensation from significant esophageal dysfunction. No further NEWS PRODUCTION SUPERVISOR needs identified. Specialist referrals:? General Surgery/Endoscopy Consider GI referral RECOMMENDATIONS: Diet Texture Recommendation:? SOLIDS (For managing esophageal dysphagia) 6-Soft & Bite-Sized Solids, extra moisture, favor soups/condiments/dressings, chew food very thoroughly. Avoid/limit bread, raw veggies, tough meats LIQUIDS Thin Liquids MEDICATIONS Whole in applesauce or cut/crushed as needed Diet texture modification is per patient's preference; please adjust diet textures at patient's discretion & collaboration with care team. Do not alter medications (e.g., cut)? without advice from your MD or pharmacist. Risk Management Strategies:? Behavioral reflux precautions, including upright position during + 90 mins after meals. Small bites, approx [id number] Consider trying sips of warm water/mint tea with meals to support esophageal relaxation PLAN: No further NEWS PRODUCTION SUPERVISOR needs OBJECTIVE Videofluoroscopic Swallow Evaluation (VFSE/MBSS) was conducted in the lateral and [id number] projection by Speech-Language Pathologist, in collaboration with Radiologist, to evaluate oropharyngeal swallow function. Anatomic view under fluoroscopy: WFL PO Barium Contrast Trials Oral barium water-soluble contrast was administered as follows: IDDSI Level 0 Varibar thin liquid (40% w/v) IDDSI Level 2 Varibar nectar thick/mildly thick liquid (40% w/v) IDDSI Level 4 Varibar pudding/pureed/extremely thick (40% w/v) IDDSI Level 7 Regular Solid: 1/2 casper cracker coated in 3 mL Varibar pudding MBSImP Component Scores: COMPONENT Scale SCORE 1 Lip closure (0-4) 0 Resulted in no labial escape 2 Hold Position (0-3) 0 Maintained a cohesive bolus between tongue to palatal seal 3 Bolus Preparation (0-4) 0 Resulted in timely and efficient chewing and mashing 4 Bolus Transport (0-4) 0 Was with brisk tongue motion 5 Oral Residue (0-4) 0 Was not observed. There was complete oral clearance 6 Swallow Initiation (0-4) 0 Occurred as bolus head at posterior angle of the mandibular ramus 7 Soft Palate Elevation (0-4) 0 Resulted in no bolus between soft palate and the pharyngeal wall 8 Laryngeal Elevation (0-3) 0 Demonstrated complete superior movement of thyroid cartilage with complete approximation of arytenoids to epiglottic petiole 9 Anterior Hyoid Motion (0-2) 0 Demonstrated complete anterior movement 10 Epiglottic Movement (0-2) 0 Resulted in complete inversion 11 Laryngeal Closure (0-2) 0 Was complete with no air or contrast in laryngeal vestibule 12 Pharyngeal Stripping Wave (0-2) 0 Was present and complete 13 Pharyngeal Contraction (0-3) 0 Was complete 14 PES Opening (0-3) 0 Was completely distended and complete duration with no obstruction of flow 15 Tongue Base Retraction (0-4) 0 Allowed no contrast between the tongue base and posterior pharyngeal wall 16 Pharyngeal Residue (0-4) 0 Was not present. There was complete pharyngeal clearance 17 Esophageal Clearance (0-4) 4 Showed minimal to no esophageal clearance Results: COMPONENT Scale SCORE 1 Oral Score (0-18) 0 2 Pharyngeal Score (0-29) 0 3 Esophageal Score (0-4) 4 Penetration-Aspiration Scale: COMPONENT Scale SCORE 1 Thin liquid (1-8) 1 Contrast did not enter the airway 2 [place] thick (1-8) 1 Contrast did not enter the airway 3 Honey thick (1-8) NA 4 Pudding thick (1-8) 1 Contrast did not enter the airway 5 Cookie (1-8) 1 Contrast did not enter the airway Thank you for allowing us to take part in this patient's care. Please feel free to contact the [facility] Speech Language Pathology Department with any questions/concerns.
--- NOTE | 2024-08-05 09:30 | DI.RAD_ITS ---
Exam(s) RF MODIFIED SPEECH BA SWALLOW EXAM: RF MODIFIED SPEECH BA SWALLOW CLINICAL HISTORY: Rt pharyngoesophageal dysphagia, particulate,r13.14 TECHNIQUE: Modified barium swallow was performed in conjunction with speech pathology. CONTRAST MATERIAL: Multiple consistencies of oral barium contrast were administered. COMPARISON: No exams were available for comparison FINDINGS: Note that this is not a dedicated esophagram, distal esophagus not evaluated. There is no evidence of aspiration or penetration with any consistency. Speech pathology report to follow. IMPRESSION: No evidence of aspiration or penetration. RADIATION DOSE DELIVERED: gio Dunn=8.7 mGy
[2024-08-05] MEDS: Barium Sulfate Oral Paste 40% W/V 230 ML TUBE PO (09:32)
[2024-08-05] MEDS: Barium Sulfate 81% w/w for Oral Suspension 148 GM BTL PO (09:33)
[2024-08-05] MEDS: Barium Sulfate 40% W/V 240 ML BTL PO (09:34)
== END 2024-08-05 01:39 ==
LOC: DI 01:20
PROVIDERS: PCP Nurse Practitioner Family; Visit Provider Otolaryngology
DX: R13.14 Dysphagia, pharyngoesophageal phase (principal); E11.9 Type 2 diabetes mellitus without complications
CPT/HCPCS: 92526; 74221

== ENCOUNTER → 2024-08-08 10:55 | Outpatient (BNVA) | payer MEDICARE, SELFPAY | PROVIDERS: PCP Nurse Practitioner Family; Referring Provider Nurse Practitioner Family; Visit Provider Physical Therapy Assistant | DX: Z12.11 Encounter for screening for malignant neoplasm of colon (principal); R13.19 Other dysphagia; J44.9 Chronic obstructive pulmonary disease, unspecified ==

== ENCOUNTER 2024-08-16 09:53 | Day surgery (SDC) | payer MEDICARE, SELFPAY ==
[2024-08-16 10:42] VITALS: BP 149/64; PULSE 99; RESP 18; TEMP 36.6; O2SAT 98
[2024-08-16] MEDS: Normal Saline Flush 10 ML SYR IV (11:11)
--- NOTE | 2024-08-16 11:47 | W.ANESPRE ---
General Info Date of Service Date Performed: 08/16/24 Height: 5 ft 5 in Weight: 120.1 kg Body Mass Index (BMI): 44.0 Surgical Procedure: Operation Date: 08/16/24 11:50 Proposed Procedure Side Surgeon p Colonoscopy/Gastroscopy Shawn MOSES MD Meds Allergies and Home Medications Allergies Allergy/AdvReac Type Severity Reaction Status Date / Time amoxicillin Allergy Unknown Skin Rash Verified 08/16/24 10:36 sulfamethoxazole (From Allergy Unknown Skin Rash Verified 08/16/24 10:36 Bactrim) trimethoprim (From Bactrim) Allergy Unknown Skin Rash Verified 08/16/24 10:36 oxycodone AdvReac Intermediate HALLUCINATI Verified 08/16/24 10:36 ONS Penicillins AdvReac RASH Verified 08/16/24 10:36 Sulfa (Sulfonamide AdvReac RASH Verified 08/16/24 10:36 Antibiotics) Home Medication ?Medication ?Instructions ?Recorded atorvastatin 10 mg tablet (Lipitor) 10 mg PO DAILY 12/06/13 amlodipine 2.5 mg tablet 2.5 mg PO DAILY 11/05/21 cholecalciferol (vitamin D3) 25 25 mcg PO DAILY 04/21/22 mcg (1,000 unit) capsule magnesium oxide 400 mg PO DAILY 11/23/22 lisinopril 2.5 mg tablet 2.5 mg PO DAILY 12/29/22 acetaminophen 500 mg tablet 1,000 mg (2 x 500 mg) PO Q8H PRN 04/04/23 pain #90 tabs bisacodyl 5 mg tablet,delayed 5 mg PO ONCE #4 tabs 08/08/24 release (Dulcolax (bisacodyl)) dulaglutide 0.75 mg/0.5 mL 3 mg subcut QWEEK 08/08/24 subcutaneous pen injector (Trulicity) glipizide 2.5 mg tablet, extended 5 mg PO DAILY 08/08/24 release 24 hr polyethylene glycol 3350 17 17 g PO ONCE #238 grams 08/08/24 gram/dose oral powder Current Visit Medications: Current Medications Generic Name Dose Route Start Last Admin Trade Name Freq PRN Reason Stop Dose Admin IV Miscellaneous Supplies 1 each 08/16/24 06:00 Iv Access IV 08/16/24 23:59 DIRECTED AMANDA Sodium Chloride 0 ml 08/16/24 06:00 08/16/24 11:11 Normal Saline Flush 10 Ml Syr IV 08/16/24 23:59 10 ml PRN PRN Administration Sodium Chloride 0 ml 08/16/24 06:00 Normal Saline 10 Ml Vial IJ 08/16/24 23:59 DIRECTED PRN Sterile Water 0 ml 08/16/24 06:00 Water,Injection,Sterile 10 Ml Vial IJ 08/16/24 23:59 DIRECTED PRN PFSH Active Problems Active Problems: Problem Status Onset Code Esophageal dysphagia Acute R13.19 Pharyngoesophageal dysphagia Acute R13.14 Iliotibial band syndrome of left side Acute M76.32 Tear of left gluteus medius tendon Acute S76.012A Tendinitis of left hip flexor Acute M76.892 Morbid obesity with BMI of 40.0-44.9, adult Acute E66.01, Z68.41 Surgical wound dehiscence Acute T81.31XA History of total left hip arthroplasty Acute 04/04/23 Z96.642 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 M47.816 Essential hypertension Chronic Diverticular disease Chronic Sciatica Chronic Diabetes mellitus Chronic Chronic kidney disease, stage 3 Chronic Actinic keratitis Chronic Hypothyroidism Chronic Left tibialis posterior tendonitis Chronic Irritable bowel syndrome with diarrhea Chronic Adult body mass index greater than 30 Chronic Right hip pain Chronic Asthma Chronic Leukoplakia oral mucosa Acute 0312/15 K13.21 Left carpal tunnel syndrome Acute G56.02 CKD (chronic kidney disease) Chronic N18.9 Hyperlipidemia Acute E78.5 Trochanteric bursitis of left hip Acute M70.62 Phlegm in throat Acute R09.89 Postnasal drip Acute R09.82 Nasal congestion Acute R09.81 Tinnitus, bilateral Acute H93.13 Sensorineural hearing loss, bilateral Acute H90.3 Posterior tibial tendon dysfunction (PTTD) of right lower extremity Acute M76.821 Pain, foot Acute M79.673 Degenerative joint disease of left hip Acute M16.12 Medical History Medical History Diverticular disease COPD (chronic obstructive pulmonary disease) Pt. denies Pes planus Osteoarthritis Dysphagia RBC microcytosis Ulcerative colitis Surgical History Surgical History History of surgery on arm (~02/2016) bicep rupture reattachment History of total right hip replacement (10/21/20) H/O foot surgery (~01/2018) pes planus repair [facility] [place]placement of total knee joint bilateral knee replacements Rotator Cuff Repair 10/2011 Repair of umbilical hernia 2006 Colonoscopy - IV Sedation frequently secondary to imflammatory bowel dz 2014 - nl. will begin routine schedule of surveillence Arthroscopy, Shoulder (03/04/16) RIGHT SHOULDER/DR. ANTONIO Tobacco Smoking/Tobacco Use Status: Former Tobacco Use Alcohol Alcohol Intake: current Alcohol intake frequency: holidays/special occasions only Substance Use Substance use: Never Substance use type: does not use Prental History History 2 Para Hx # Term Pregnancies 2 Multiple births Hx # Pregnancies Ectopic pregnancies AB induced Hx Number of Living Children AB spontaneous Vital Signs and Lab Results Vital Signs Most Recent Vital Signs in EMR: Most Recent Vital Signs Temp Pulse Resp BP Pulse Ox 36.6 C 99 H 18 149/64 H 98 08/16/24 10:42 08/16/24 10:42 08/16/24 10:42 08/16/24 10:42 08/16/24 10:42 Point of Care Results Point of Care Results: Finger Stick Blood Glucose 133 08/16/24 10:52 Lab Results Blood Type / Crossmatch: No Data to Display Complete Blood Count: No Data to Display Complete Metabolic Panel: No Data to Display Liver Function Panel: No Data to Display Coagulation Panel: No Data to Display Cardiac Panel: No Data to Display Arterial Blood Gas: No Data to Display Venous Blood Gas: No Data to Display Pancreas Panel: No Data to Display Thyroid Panel: No Data to Display Infectious Disease: No Data to Display Blood Cultures: No Data to Display Toxicology Panel: No Data to Display Imaging and Studies Imaging and Studies Study information below may be from another EMR and interpreted by another provider. Please see original notes in EMR for more complete details. EKG Summary: EKG PATIENT NAME: Dori New #: [id number] ORDERING PROVIDER: Paty Dsouza M.D. PRIMARY CARE PROVIDER:BETHEL ROBERSON MD DATE/TIME OF SERVICE: 10/03/21919 : 1955PERFORMING LOCATION: ER APPROVED REPORT Exam: Resting ECG Reason for Exam: sob Patient Location: E HR:105 bpm ECG Measurements Heart Rate 105 AXIS UT 182 P 63 QRSd 88 QRS 30 QT 336 [id number] QTc 444 Conclusion Sinus tachycardia...rate> 99 <Electronically signed by PATY DSOUZA MD in OV> E-Sign Date: 10/03/21 E-Sign Time: 920 ADDENDUM APPROVED REPORT Exam: Resting ECG Reason for Exam: sob Patient Location: E HR:105 bpm ECG Measurements Heart Rate 105 AXIS UT 182 P 63 QRSd 88 QRS 30 QT 336 [id number] QTc 444 Conclusion Sinus tachycardia...rate> 99 I have reviewed and I agree with the emergency room physician's ECG interpretation. Electronically signed by: <Electronically signed by Merissa Ngo M.D. in OV> 10/04/21 0819 Cosigned by: Echocardiogram Summary: Patient Name: Dori New #: [id number]: DI Ordering Provider: Yaakov Roberson #: [id number]: REG I Primary Care Provider: Sung Roberson of Exam: 03/27/23Sex: F Admission Date: 03/27/23 : 1955 Age: 67 APPROVED REPORT EXAM: Comprehensive 2D, Doppler, and color-flow Echocardiogram Patient Location: Out-Patient Consumer Recruiter: Betty Schwarz RDCS (AE) Indications: Systolic heart murmur, DM, COPD, HTN, Pre op joint replacement Other Information Study Quality: Fair. Technically limited study due to body habitus, inability to position patient exam done supine, hip pain unable to turn. Conclusion Technically limited study Left ventricle appears normal and wall thickness, chamber size and systolic function. EF is 60%. No segmental wall motion abnormalities are seen Normal right ventricular size and systolic function Both atria are normal in size Aortic valve is calcified without stenosis or regurgitation There is no additional structural or hemodynamically significant valvular disease Wall motion Left Ventricle Technically limited parasternal imaging. The overall left ventricular systolic function appears normal. There is normal LV segmental wall motion. There is no ventricular septal defect visualized. LVEF is 60%. Right Ventricle The right ventricle is normal size. The right ventricular systolic function is normal. Atria The left atrium size is normal. The right atrium size is normal. The interatrial septum is intact with no evidence for an atrial septal defect. Aortic Valve Aortic valve is calcified. Number of aortic valve leaflets could not be assessed. No hemodynamically significant valvular aortic stenosis. No aortic regurgitation is present. Mitral Valve The mitral valve is normal in structure. No evidence of mitral valve stenosis. Trace mitral regurgitation. Tricuspid Valve The tricuspid valve is normal in structure. There is no tricuspid valve stenosis. Trace tricuspid regurgitation. Unable to assess PA pressure. Pulmonic Valve Pulmonic valve is not well visualized. There is no pulmonic valvular stenosis. There is no pulmonic valvular regurgitation. Great Vessels The aortic root is normal in size. Ascending aorta is not well visualized. Descending aorta is not well visualized. IVC is normal in size and collapses >50% with inspiration. Pericardium There is no pericardial effusion. 2D Dimensions Ao Root d 3.29 cm F: 2.7 - 3.3LV Vol A2C d MOD 88.1 mL RA Area A4C11.33 cm2LV Vol A4C d MOD 111.5 mL RA Vol/ BSA A4C s A-L 10.0 mL/m2LA vol/ BSA A2C s A-L28.5 mL/m2 LVEF (Rod's)58.46 % F: 54 - 74LA vol/ BSA A4C s A-L13.5 mL/m2 LV Ulnnwc10.88 mL F: 46 - 106LA Vol/ BSA Biplane s A-L 23.6 mL/m2 LV Volume Index34.19 mL/m2 F: 29 - 61LA Area A4C s MOD 12.54 cm2 LV Vol Biplane MOD 102.7 mLLA Area A2C s MOD 21.96 cm2 LV EF A4C MOD 59.4 % LV EF A2C MOD 58.7 % LV EF Biplane MOD 58.5 % SV60.07 mL SV Index27.48 mL/m2 M-Mode TAPSE 2.73 cm (M/F) >1.7 LV Diastology MV E' medial0.076 (>0.07 m/s)E/A Ratio 0.8 LV E/e MED7.45 (<14)MV E Vmax 0.57 (0.4-1.3 m/s) MV E' lateral0.082 (>0.1 m/s)MV A Vmax 0.70 (0.4-1.3 m/s) LV E/e LAT6.90 (<14)MV E/A Ratio 0.80 MV E/E' medial 7.47 MV E/E' lateral6.93 Aortic Valve LVOT Area3.64 cm2AoV Area Vmax2.11 cm2 LVOT Vmax 1.24 m/sAoV Area/ BSA (Vmax)0.96 cm2/m2 LVOT Mean Charlie.0.77 m/sAVA Mean Charlie.1.80 cm2 LVOT Peak Grad 6.1 mmHgAVA Mean Charlie. Index0.82 cm2/m2 LVOT Mean Grad 2.9 mmHg LVOT VTI0.251 m LVOT Diam s 2.15 cm AoV Vmax2.14 m/s Velocity Ratio 0.58 AoV Mean Charlie.1.56 m/s AoV Peak Grad18.3 mmHg LVOT SV 91.47 mL AoV Mean Grad10.7 mmHg AoV VTI0.431 m AoV Area VTI2.12 cm2 AoV Area/ BSA (VTI)0.97 cm/m2 Mitral Valve MV DT 307 (160-240 msec) MV PHT89 msec MV Area PHT 2.47 cm2 MV VTI 0.211 m MV Area VTI 4.34 (4.0-6.0 cm2) Pulmonary Valve PV Vmax 1.19 (0.5-1.5 m/s)RVOT Peak Gr.4.10 mmHg PV Peak Grad 5.6 mmHgRVOT Mean Gr.2.20 mmHg PV Mean Grad 2.9 mmHgRVOT VTI0.211 m PV VTI 0.242 mRVOT Vmax 1.01 m/s Ordered By: Bethel Roberson CC: Anesthesia Assessment and Plan Anesthesia History Personal History: No History of Anesthesia Complications Family History: No Family History of Anesthesia Complications Exercise Tolerance Exercise Tolerance: Metabolic Equivalents>4 Cardiac & Pulmonary Exam Cardiac Exam: Heart Murmur Present and Known Innocent Murmur Pulmonary Exam: Clear Bilateral Breath Sounds Implantable Cardiac Device Does patient have a Pacemaker or an ICD?: No Airway Exam Known Difficult Airway: No Mallampati Class: 2 Mouth Opening: Normal (> 3cm) Thyromental Distance: Greater than 3 cm Neck Range of Motion: Full ROM Neck Circumference: Normal Teeth Condition: Generalized Poor Dentition and Loose or Chipped ASA Classification ASA Score: ASA 3 Emergency Case?: No NPO Status NPO Status: NPO Clears >2 hours, Solids >8 hours Anesthesia Plan Resuscitation Status: Full Code Anesthesia Technique: General Anesthesia Airway Planned: Natural Airway Monitors Used: Standard Monitors Preoperative Comments:: 69 yo female for EGD/[place]. Sig PMHx: HTN (amlodipine, lisinopril), COPD, DM (trulicity, glipizide), hypothyroid, CKDIII, former smoker, occ EtOH Previous Anes: - GURPREET x 2, spinal, prop sedation, no issues. - ECTR, prop, natural airway. - bakers cyst, LMA 5, no issues. - bicep tendon, LMA 4.
[2024-08-16 11:52] VITALS: BMI 44.0
[2024-08-16 13:05] VITALS: BP 99/54; PULSE 91; RESP 20; TEMP 36.6; O2SAT 99
--- NOTE | 2024-08-16 13:11 | ROE_ITS ---
Operative Note Operative Note PRE-OP DIAGNOSIS: Dysphagia, colon cancer screening Diverticular disease, colon polyp, normal duodenum, esophagus, and stomach SURGEON: Shawn Burroughs [facility] ANESTHESIA TYPE: MAC Refer to Anesthesia Record PATHOLOGY: other (Gastric antrum mucosal biopsies, GE junction mucosal biopsies, ascending colon polyp) COMPLICATIONS: None Patient was transported to: PACU Patient's condition: stable Findings: Normal-appearing duodenum, stomach, and esophagus. Subcentimeter colon polyp. Mild diverticular disease in the sigmoid colon. Procedure Description: After obtaining informed consent, patient was brought back to the operating room. She was tender to left side and connected to the monitors. Timeout was performed. Bite block was inserted. Propofol was administered by the nurse electronic warfare officer. I began by inserting a Veronique scope through the oropharynx and into the esophagus. I advanced all the way down to the second portion of the duodenum. The duodenum and duodenal bulb had a normal appearance. I withdrew into the stomach. The pylorus and antrum had a normal appearance except for a little bit of heaped up mucosa in the antrum. I took some gastric antrum mucosal biopsies. Mucosa of the body of the stomach and the cardia had a normal appearance. I did retroflex. I did not appreciate a hiatal hernia. I decompressed the stomach and withdrew into the esophagus. The Z-line was somewhat irritated and was about 1 cm above the diaphragmatic hiatus. I took some GE junction mucosal biopsies. There was no signs of stricturing or narrowing of the esophagus. It opened up easily with insufflation throughout its length. I did not attempt any dilation. Decompressed the stomach and withdrew the upper scope entirely. We turned our attention to the colonoscopy portion of the exam. I began by performing a digital rectal exam. This was unremarkable. I inserted the colonoscope and advanced the length of the colon. I attained the cecum as identified by the appendiceal orifice and the ileocecal valve. I intubated the ileocecal valve to be of the terminal ileum. This had a normal appearance. I withdrew into the cecum. Her prep was good. The cecum had a normal appearance. I withdrew along the ascending colon and almost immediately came to a 6 mm sessile polyp that I removed with a hot snare. This was retrieved with suction and sent to pathology. I withdrew along the transverse colon, descending colon, and sigmoid colon. No further abnormalities of the mucosa were noted. She did have scattered diverticula in the sigmoid colon. I withdrew into the rectum. I did retroflex. This was unremarkable. I decompressed the sigmoid and the rectum and withdrew the scope entirely. Patient tolerated well. She went to recovery in stable condition. Disposition: Patient will be discharged home later today. Will call her with the pathology report. She will likely need a repeat colonoscopy in 5 to 7 years, pending pathology. Date of Procedure: 08/16/24
--- NOTE | 2024-08-16 14:02 | W.ANESPOSTOP ---
Postoperative Evaluation Date, Time and Location Date Performed: 08/16/24 Time Performed: 13:45 Patient Location: Day Surgery Unit Vital Signs Most Recent Imported Vital Signs: Most Recent Vital Signs Temp Pulse Resp BP Pulse Ox 36.6 C 91 H 20 99/54 L 99 08/16/24 13:05 08/16/24 13:05 08/16/24 13:05 08/16/24 13:05 08/16/24 13:05 Pain Score Most Recent Pain Score: Most Recent Pain Score Pain Level 0 08/16/24 13:35 Assessment Mental Status: Awake (Alert & Oriented to Patient Baseline) Airway and Respiratory Function: Patent airway with normal (patient baseline) respiratory exam Cardiovascular Function: Hemodynamically Stable Hydration Status: Adequately Hydrated Nausea & Vomiting: No Nausea or Vomiting Pain: Pt. Denies Any Pain Peripheral Nerve Block: Patient did not receive a nerve block
== END 2024-08-16 14:09 | disposition home or self-care (01) ==
PROVIDERS: PCP Nurse Practitioner Family; Visit Provider Surgery
PROC: (CPT 43239; principal; 2024-08-16 11:45)
DX: Z12.11 Encounter for screening for malignant neoplasm of colon (principal); E11.9 Type 2 diabetes mellitus without complications; I12.9 Hypertensive chronic kidney disease with stage 1 through stage 4 chronic kidney disease, or unspecified chronic kidney disease; N18.30 Chronic kidney disease, stage 3 unspecified; K57.30 Diverticulosis of large intestine without perforation or abscess without bleeding; D12.2 Benign neoplasm of ascending colon; K29.70 Gastritis, unspecified, without bleeding; K31.A19 Gastric intestinal metaplasia without dysplasia, unspecified site
CPT/HCPCS: 43239; 45385; 00123; 88305; J2003; J2704

== ENCOUNTER 2024-10-17 11:46 | Outpatient (REF) | payer MEDICARE, SELFPAY ==
[2024-10-19 13:35] LABS: HSV 1 DNA Result Negative (Negative); HSV 2 DNA Result Negative (Negative)
== END 2024-10-17 11:47 | disposition home or self-care (01) ==
LOC: NCHCN 11:46
PROVIDERS: PCP Nurse Practitioner Family; Visit Provider Nurse Practitioner Family
DX: L98.9 Disorder of the skin and subcutaneous tissue, unspecified (principal)
CPT/HCPCS: 87529; 87070; 87205

== ENCOUNTER 2024-10-23 15:42 | Outpatient (CLI) | payer MEDICARE, SELFPAY ==
--- NOTE | 2024-10-23 10:30 | DI.RAD_ITS ---
Exam(s) XR HIP LT AP LAT ONLY EXAM: XR HIP LT AP LAT ONLY CLINICAL HISTORY: LEFT HIP PAIN. TECHNIQUE: 2D digital imaging was performed. Two images were obtained. AP and lateral views were ob tained. COMPARISON: CR XR HIP LT AP LAT ONLY from 10/24/2023 FINDINGS: BONES: There are stable post operative changes of a left total hip arthroplasty present. No fracture or dislocation. JOINTS: The orthopedic hardware is in good position. No evidence of hardware loosening. SOFT TISSUE: Normal. IMPRESSION: Stable left total hip arthroplasty. DATA REPOSITORY: RADIATION DOSE DELIVERED:
== END 2024-10-23 15:43 | disposition home or self-care (01) ==
LOC: DIORS 15:42
PROVIDERS: PCP Nurse Practitioner Family; Referring Provider Nurse Practitioner Family; Visit Provider Student in an Organized Health Care Education/Training Program
DX: M76.32 Iliotibial band syndrome, left leg (principal); M70.62 Trochanteric bursitis, left hip
CPT/HCPCS: 99214; 73502

== ENCOUNTER 2024-10-29 15:25 | Outpatient (CLI) | payer MEDICARE, SELFPAY ==
[2024-10-29 15:53] LABS: HCT 41.4 % (36.0-46.0); HGB 12.7 g/dL (11.2-15.7); MCH 29.3 pg (27.0-33.0); MCHC 30.7 % (32.0-36.0); MCV 96 fL (80-95); MPV 9.6 fL (8.0-11.0); Platelet Count 270 10^3/uL (130-400); RBC 4.33 10^6/uL (3.93-5.22); RDW 14.9 % (11.7-14.6); RDW-SD 51.2 fL; WBC 11.21 10^3/uL (4.4-10.8)
[2024-10-29 15:55] LABS: ESR 26 mm/hr (0-30)
[2024-10-29 16:16] LABS: C-Reactive Protein 2.73 mg/dL (<or=0.5)
== END 2024-10-29 15:26 | disposition home or self-care (01) ==
LOC: LBO 15:27
PROVIDERS: PCP Nurse Practitioner Family; Visit Provider Student in an Organized Health Care Education/Training Program
DX: M25.551 Pain in right hip (principal); S76.012A Strain of muscle, fascia and tendon of left hip, initial encounter; M70.62 Trochanteric bursitis, left hip
CPT/HCPCS: 36415; 85027; 85652; 86140

== ENCOUNTER → 2024-11-19 14:52 | Outpatient (BNVA) | payer MEDICARE, SELFPAY | PROVIDERS: PCP Nurse Practitioner Family; Referring Provider Nurse Practitioner Family; Visit Provider Student in an Organized Health Care Education/Training Program | DX: M70.62 Trochanteric bursitis, left hip (principal); M76.32 Iliotibial band syndrome, left leg; S76.012D Strain of muscle, fascia and tendon of left hip, subsequent encounter; X58.XXXD Exposure to other specified factors, subsequent encounter | CPT/HCPCS: 99213 ==

== ENCOUNTER 2024-12-17 02:48 | Outpatient (CLI) | payer MEDICARE, SELFPAY ==
[2024-12-17 10:04] LABS: Abs Immature Grans 0.02 10^3/uL (0.0-0.06); Absolute Basophil Count 0.06 10^3/uL (0.0-0.2); Absolute Lymphocyte Count 2.48 10^3/uL (1.2-3.4); Absolute Neutrophil Count 4.86 10^3/uL (1.2-6.7); Basophils % 0.7 %; Eosinophils % 5.8 %; HCT 43.6 % (36.0-46.0); HGB 13.6 g/dL (11.2-15.7); Immature Grans % 0.2 %; Lymphocytes % 28.8 %; MCH 29.8 pg (27.0-33.0); MCHC 31.2 % (32.0-36.0); MCV 96 fL (80-95); MPV 9.7 fL (8.0-11.0); Monocytes % 8.1 %; Neutrophils % 56.4 %; Platelet Count 271 10^3/uL (130-400); RBC 4.56 10^6/uL (3.93-5.22); RDW 14.7 % (11.7-14.6); RDW-SD 52.3 fL; WBC 8.62 10^3/uL (4.4-10.8)
[2024-12-17 10:06] LABS: ESR 29 mm/hr (0-30)
== END 2024-12-17 02:49 | disposition home or self-care (01) ==
LOC: LBO 02:48
PROVIDERS: PCP Nurse Practitioner Family; Visit Provider Student in an Organized Health Care Education/Training Program
DX: M76.32 Iliotibial band syndrome, left leg (principal); Z96.642 Presence of left artificial hip joint
CPT/HCPCS: 36415; 85652; 85025; 86140

== ENCOUNTER 2024-12-18 14:35 | Outpatient (CLI) | payer MEDICARE, SELFPAY ==
--- NOTE | 2024-12-18 06:00 | DI.RAD_ITS ---
Exam(s) XR PAIN CLINIC SACRIOILIAC 2V EXAM: XR PAIN CLINIC SACRIOILIAC 2V CLINICAL HISTORY: DX: Sacroiliac Dysfunction. TECHNIQUE: Fluoroscopy was provided for the referring physician for guidance with performing pain cl inic injection procedure. COMPARISON: No exams were available for comparison FINDINGS: Please see procedure note for details. Fluoro time: 15.4 seconds RADIATION DOSE DELIVERED: Ka,r=9.11 mGy
[2024-12-18 14:48] VITALS: BP 126/60; PULSE 93; RESP 20; TEMP 37; O2SAT 98
[2024-12-18 15:23] VITALS: PULSE 107; RESP 17; O2SAT 95
[2024-12-18 15:25] VITALS: BP 166/86; PULSE 110; RESP 24; O2SAT 94
[2024-12-18 15:30] VITALS: PULSE 109; RESP 21; O2SAT 96
[2024-12-18 15:31] VITALS: BP 137/96; PULSE 104; RESP 19; O2SAT 97
--- NOTE | 2024-12-18 15:35 | PDOC.PAIN_ITS ---
Date of service: 12/18/24 Time of Service: 15:35 Pain Managment Procedure Note Procedure Note Procedure Note: PROCEDURE NOTE LEFT INTRA-ARTICULAR SACROILIAC JOINT INJECTION Date of Service: December 18, 2024 Patient: Dori New Provider: Dave Reynolds DO, MPH COMMENTS: I previously evaluated the patient in the office and their symptoms in relation to the sacroiliac joint pain have remained the same. Pre-operative diagnosis: Sacroiliac joint dysfunction ICD-10 M53.3 Post-operative diagnosis: Same Pre-procedure pain: VAS= 6/10 Dori New has been referred to our [facility] for a Left intra-articular Sacroiliac joint injection. Dori was interviewed and the medical record reviewed. There were no medical, pharmacologic, radiographic or other structural contraindications to attempting a fluoroscopically-guided, contrast-enhanced, intra-articular Sacroiliac joint injection. The risks, benefits, and potential side effects of this procedure were reviewed with the patient. Questions and concerns were addressed. After it was clear that Dori was fully informed about the procedure, the printed consent form was signed by the patient and myself. Dori was placed in the prone position on the fluoroscopy table and an automated blood pressure cuff, 3 lead EKG, and pulse oximeter were applied. The skin entry point for approaching the Left sacroiliac joint was identified under the most advantageous fluoroscopic view and marked. Following thorough Chlorhexadine preparation of the skin and draping with sterile surgical drapes, 2 mls of 1% lidocaine was infiltrated into the skin at the entry point and the surrounding subcutaneous tissues. Next, a 3.5 22G spinal needle was placed under fluoroscopic guidance into the Left sacroiliac joint. Intra-articular placement was confirmed by a clear arthrogram resulting from the injection of 0.25ml of Omnipaque-240. Next, 1 ml of Depo- Medrol 80 mg/ml was injected intra- articularly with an initial reproduction of a significant component of the usual pain. This was followed with 1 ml of 1% Lidocaine. The needle was then removed without difficulty. (49 ml of Omnipaque-240 was wasted). Fransiscas vital signs were stable throughout the procedure and were as recorded in nursing records. Follow up plans and appointments were discussed with Dori. Post procedure instructions were given as documented in nursing records. Having met discharge criteria, Dori was [facility] from the [facility]. COMMENTS: Post-procedure pain: VAS= 1/10. If the patient receives at least 50% improvement in pain and/or function for at least 3 months, this procedure can be repeated if needed. I personally performed this entire procedure. DAVE REYNOLDS DO, MPH ABPMR-subspecialty board certification in Pain Medicine [facility] Coding Conscious Sedation used for procedure: No CPT Codes: SI Joint Inj; incl Fluoro - 47796 ([id number] ~G) Additional Codes: Date of Service (07230) Date of service: 12/18/24
[2024-12-18] MEDS: Omnipaque 240 MG/ML 50 ML BTL IJ (15:39)
[2024-12-18] MEDS: Nerve Block Tray 1 EACH MC (15:39)
[2024-12-18] MEDS: methylPREDNISolone ACETATE 80 MG/ML VIAL IJ (15:39)
== END 2024-12-18 14:36 | disposition home or self-care (01) ==
PROVIDERS: PCP Nurse Practitioner Family; Visit Provider Preventive Medicine Occupational Medicine
DX: M54.50 Low back pain, unspecified (principal); M53.3 Sacrococcygeal disorders, not elsewhere classified
CPT/HCPCS: 27096; 72200; J1010; Q9967

== ENCOUNTER 2024-12-24 00:48 | Outpatient (CLI) | payer MEDICARE, SELFPAY ==
--- NOTE | 2024-12-24 | DI.US_ITS ---
APPROVED REPORT EXAM: Comprehensive 2D, Doppler, and color-flow Echocardiogram Patient Location: Out-Patient Documentation Lead: Bear Garcia RDCS (AE) Indications: Murmur, increased lower extremity edema Other Information Study Quality: Fair. Technically limited study due to body habitus. Conclusion Normal left ventricular wall thickness and chamber size. Ejection fraction is 60%. Wall motion is n ormal Normal right ventricular size and function Both atria are normal in size Aortic valve is sclerotic and probably trileaflet. There is mild aortic stenosis. Peak gradient is 25, mean 14 mmHg. Calculated aortic valve area is 1.4 cm??. There is no aortic regurgitation Mild mitral annular calcification. Trace mitral regurgitation Ascending aorta measures 3.46 cm Wall motion Left Ventricle The left ventricle is grossly normal size. The left ventricular systolic function is normal. The left ventricular ejection fraction is within the normal range. There is normal left ventricular wall thic kness. There is normal LV segmental wall motion. There is no ventricular septal defect visualized. LV EF is 60%. Right Ventricle The right ventricle is normal size. The right ventricular systolic function is normal. Atria The left atrium size is normal. The right atrium size is normal. The interatrial septum is intact wit h no evidence for an atrial septal defect. Aortic Valve Aortic valve is sclerotic Aortic valve is probably trileaflet. Mild aortic stenosis. Mean gradient is 14 mmHg, peak is 25 mmHg. Calculated aortic valve area is 1.4 cm?? No aortic regurgitation is presen t. Mitral Valve Mild mitral annular calcification. No evidence of mitral valve stenosis. Trace mitral regurgitation. Tricuspid Valve The tricuspid valve is normal in structure. There is no tricuspid valve stenosis. Trace tricuspid reg urgitation. Pulmonic Valve The pulmonary valve is normal in structure. There is no pulmonic valvular stenosis. There is no pulmo dilia valvular regurgitation. Great Vessels The aortic root is normal in size. The ascending aorta is mildly dilated. IVC is normal in size and c ollapses >50% with inspiration. Pericardium There is no pericardial effusion. 2D Dimensions Ao Root d 2.61 cm F: 2.7 - 3.3 Ao Asc Diam d 3.46 cm F: 2.3 - 3.1 M-Mode TAPSE 3.12 cm (M/F) >1.7 Auto EF LV EDV A4C 127.1 mL LV EDV A2C 109.0 mL LV EDV BP 117.8 mL LV ESV A4C 53.3 mL LV ESV A2C 43.1 mL LV ESV BP 46.9 mL LVEF(%) A4C 58.0 % LVEF(%) A2C 60.5 % LVEF(%) BP 60.2 % LV SV A4C 73.8 ml LV SV A2C 65.9 ml LV SV BP 70.9 ml LV CO A4C 6.0 L/min LV CO A2C 5.3 L/min LV CO BP 5.6 L/min HR A4C 81.27 BPM HR A2C 80.36 BPM LV EDV Index (BP) LA Volume LA Length A4C 5.0 cm LA Length A2C 4.6 cm LA Area A4C s 12.42 cm2 LA Area A2C s 8.96 cm2 LA Vol A4C A-L 26.15 mL LA Vol A2C A-L 14.95 mL LA Vol Biplane A-L 20.7 mL LA Vol/BSA A4C A-L LA Vol/BSA A2C A-L LA Vol/BSA BP A-L 9.2 mL/m2 LA Vol A4C MOD 24.9 mL LA Vol A2C MOD 13.9 mL LA Vol BP MOD 18.9 mL RA Volume RA Area A4C 8.0 cm2 RA ESV A4C (A-L) 11.9mL RA Vol/BSA A4C A-L RA Length A4C 4.5 cm RA ESV A4C (MOD) 11.2mL LV Diastology MV E' medial 0.094 (>0.07 m/s) MV E Vmax 0.77 (0.4-1.3 m/s) MV E/E' MED 8.18 (<14) MV A Vmax 0.80 (0.4-1.3 m/s) MV E' lateral 0.095 (>0.1 m/s) E/A Ratio 1.0 MV E/E' LAT 8.03 (<14) MV E' Average 0.095 m/s MV E/E'(average) 8.11 Aortic Valve AoV Vmax 2.50 m/s LVOT Vmax 0.98 m/s AoV Peak Grad 24.9 mmHg LVOT Peak Grad 3.8 mmHg AoV Area (Vmax) 1.38 cm2 LVOT VTI 0.240 m AoV VTI 0.584 m LVOT Mean Grad 2.0 mmHg AoV Mean Charlie. 1.76 m/s LVOT SV 84.52 mL AoV Mean Grad 14.1 mmHg LVOT Diam s 2.10 cm AoV Area (VTI) 1.45 cm2 AV Regurg Peak Gr. 24.94 mmHg Velocity Ratio 0.39 Mitral Valve MV DT 217 (160-240 msec) MV Vmax TIPS 0.79 m/s MV Mean Grad 0.9 (<2mmHg) MV VTI 0.201 m Tricuspid Valve TV S' 0.20 m/s
== END 2024-12-24 01:08 ==
LOC: DI 00:48
PROVIDERS: PCP Nurse Practitioner Family; Visit Provider Nurse Practitioner Family
DX: I08.0 Rheumatic disorders of both mitral and aortic valves (principal)
CPT/HCPCS: 93306

== ENCOUNTER 2025-02-12 02:01 | Outpatient (CLI) | payer MEDICARE, SELFPAY ==
--- NOTE | 2025-02-12 | DI.US_ITS ---
Exam(s) US RENAL EXAM: US RENAL CLINICAL HISTORY: STAGE 3B KIDNEY DISEASE,EVAL KIDNEY SIZE,SHAPE,HYDRO. TECHNIQUE: Baker scale, color and spectral Doppler were used. COMPARISON: US US RENAL from 12/13/2021 FINDINGS: Renal size in cm: Right: 9.2. Left: 9.4. Echogenicity: Normal. Hydronephrosis: No. Cyst or mass: No. Nephrolithiasis: No. Other findings: There is mild bilateral renal cortical atrophy. Bladder:Normal. Ureteral jets: Right: Not visualized on this examination. Left: Not visualized on this examination. Prevoid vol:117 cc Postvoid vol:0 cc Renal color flow: Symmetric and within normal limits. IMPRESSION: 1. There is mild bilateral renal cortical atrophy. 2. No evidence of a renal mass sonographically. No hydronephrosis. DATA REPOSITORY:
== END 2025-02-12 02:21 ==
LOC: DI 02:01
PROVIDERS: PCP Nurse Practitioner Family; Visit Provider Internal Medicine Nephrology
DX: N18.32 Chronic kidney disease, stage 3b (principal)
CPT/HCPCS: 76770

== ENCOUNTER 2025-02-12 02:58 | Outpatient (CLI) | payer MEDICARE, SELFPAY ==
[2025-02-12 09:54] LABS: Anion Gap 4.2 mmol/L (3-11); BUN 31 mg/dL (7-18); CO2 31.8 mmol/L (21.0-32.0); CREATININE 1.6 mg/dL (0.55-1.02); Calcium 10.3 mg/dL (8.5-10.1); Chloride 103 mmol/L (98-107); Estimated GFR 34.91 (mL/min/1.73m2); Glucose 133 mg/dL (74-106); Potassium 4.7 mmol/L (3.5-5.1); Sodium 139 mmol/L (136-145)
== END 2025-02-12 02:59 | disposition home or self-care (01) ==
PROVIDERS: PCP Nurse Practitioner Family; Visit Provider Internal Medicine Nephrology
DX: N18.32 Chronic kidney disease, stage 3b (principal)
CPT/HCPCS: 36415; 80048

== ENCOUNTER 2025-07-10 12:50 | Outpatient (CLI) | payer MEDICARE, SELFPAY ==
[2025-07-10 13:00] LABS: Abs Immature Grans 0.02 10^3/uL (0.0-0.06); HCT 39.2 % (36.0-46.0); HGB 12.5 g/dL (11.2-15.7); Immature Grans % 0.2 %; MCH 29.5 pg (27.0-33.0); MCHC 31.9 % (32.0-36.0); MCV 93 fL (80-95); MPV 10.0 fL (8.0-11.0); Platelet Count 247 10^3/uL (130-400); RBC 4.24 10^6/uL (3.93-5.22); RDW 14.2 % (11.7-14.6); RDW-SD 47.8 fL; WBC 9.40 10^3/uL (4.4-10.8)
[2025-07-10 13:45] LABS: PROTEIN 11.9 mg/dL; Prot/Crea Ur Ratio 0.21
[2025-07-10 13:48] LABS: COMMENT (LAB VIEW ONLY) 54.74 mg/dL; Microalb ug/mg Crea 30.3 ug/mg Cr
[2025-07-10 13:50] LABS: Iron 56 ug/dL (50-170); Total Iron Binding Capacity 289 ug/dL (250-450); Transferrin Sat 19 % (15-50)
[2025-07-10 14:13] LABS: Albumin 3.7 g/dL (3.4-5.0); Anion Gap 8.6 mmol/L (3-11); BUN 29 mg/dL (7-18); CO2 28.4 mmol/L (21.0-32.0); Calcium 9.8 mg/dL (8.5-10.1); Chloride 101 mmol/L (98-107); Estimated GFR 32.26 (mL/min/1.73m2); Ferritin 54 ng/mL (8-252); Folate 7.6 ng/mL (8.6-20.0); Glucose 104 mg/dL (74-106); Potassium 4.2 mmol/L (3.5-5.1); Sodium 138 mmol/L (136-145); Vitamin B12 456 pg/mL (193-986); Vitamin D 25 Total 36 ng/mL (30-100)
[2025-07-10 14:29] LABS: Uric Acid 9.0 mg/dL (2.6-6.0)
== END 2025-07-10 12:51 | disposition home or self-care (01) ==
LOC: LBO 12:50
PROVIDERS: PCP Nurse Practitioner Family; Visit Provider Registered Nurse
DX: N18.32 Chronic kidney disease, stage 3b (principal)
CPT/HCPCS: 36415; 80048; 82306; 82040; 82043; 82565; 82570; 82607; 82728; 82746; 83540; 83550; 83970; 84100; 84156; 84550; 85025

== ENCOUNTER 2025-07-24 07:21 | Outpatient (CLI) | payer MEDICARE, SELFPAY ==
[2025-07-24 07:04] VITALS: BP 119/58; PULSE 71; RESP 18; TEMP 36.6; O2SAT 98
[2025-07-24 08:37] VITALS: PULSE 90; RESP 21; O2SAT 94
[2025-07-24 08:38] VITALS: BP 187/103; PULSE 95; PULSE 96; RESP 16
[2025-07-24 08:40] VITALS: PULSE 96; RESP 19; O2SAT 98
[2025-07-24 08:48] VITALS: BP 133/77; PULSE 86
--- NOTE | 2025-07-24 08:48 | DI.RAD_ITS ---
Exam(s) XR PAIN CLINIC SACRIOILIAC 2V EXAM: XR PAIN CLINIC SACRIOILIAC 2V CLINICAL HISTORY: DX: Sacroiliac Dysfunction TECHNIQUE: 2D and realtime digital imaging was performed. Radiologist not present. CONTRAST MATERIAL: None. COMPARISON: No exams were available for comparison FINDINGS: Fluoroscopy was provided for pain management therapy. Left sacroiliac joint therapeutic steroid injection Please refer to procedure report or details. Radiation Exposure Index: Ka,r=7.64 mGy IMPRESSION: As above. RADIATION DOSE DELIVERED:
[2025-07-24] MEDS: Omnipaque 240 MG/ML 50 ML BTL IJ (08:51)
[2025-07-24] MEDS: Nerve Block Tray 1 EACH MC (08:51)
[2025-07-24] MEDS: methylPREDNISolone ACETATE 40 MG/ML VIAL IJ (08:52)
--- NOTE | 2025-07-29 12:33 | PDOC.PAIN ---
Date of service: 07/29/25 Time of Service: 08:22 Pain Managment Procedure Note Procedure Note Procedure Note: PROCEDURE NOTE LEFT INTRA-ARTICULAR SACROILIAC JOINT INJECTION Date of Service: July 24, 2025 Patient: Dori New Provider: Dave Reynolds DO, MPH COMMENTS: I previously evaluated the patient in the office and their symptoms in relation to the sacroiliac joint pain have remained the same. >50% pain improvement for >3 months with her last left sacroiliac joint injection. Pre-operative diagnosis: Sacroiliac joint dysfunction ICD-10 M53.3 Post-operative diagnosis: Same Pre-procedure pain: VAS= 4/10 Dori New has been referred to our [facility] for a Left intra-articular Sacroiliac joint injection. Dori was interviewed and the medical record reviewed. There were no medical, pharmacologic, radiographic or other structural contraindications to attempting a fluoroscopically-guided, contrast-enhanced, intra-articular Sacroiliac joint injection. The risks, benefits, and potential side effects of this procedure were reviewed with the patient. Questions and concerns were addressed. After it was clear that Dori was fully informed about the procedure, the printed consent form was signed by the patient and myself. Dori was placed in the prone position on the fluoroscopy table and an automated blood pressure cuff, 3 lead EKG, and pulse oximeter were applied. The skin entry point for approaching the Left sacroiliac joint was identified under the most advantageous fluoroscopic view and marked. Following thorough Chlorhexadine preparation of the skin and draping with sterile surgical drapes, 2 mls of 1% lidocaine was infiltrated into the skin at the entry point and the surrounding subcutaneous tissues. Next, a 3.5 22G spinal needle was placed under fluoroscopic guidance into the Left sacroiliac joint. Intra-articular placement was confirmed by a clear arthrogram resulting from the injection of 0.25ml of Omnipaque-240. Next, 1 ml of Depo- Medrol 80 mg/ml was injected intra-articularly with an initial reproduction of a significant component of the usual pain. This was followed with 1 ml of 1% Lidocaine. The needle was then removed without difficulty. (49 ml of Omnipaque-240 was wasted). Dori's vital signs were stable throughout the procedure and were as recorded in nursing records. Follow up plans and appointments were discussed with Dori. Post procedure instructions were given as documented in nursing records. Having met discharge criteria, D[facility] was [facility] from the [facility] COMMENTS: Post-procedure pain: VAS= 0/10. If the patient receives at least 50% improvement in pain and/or function for at least 3 months, this procedure can be repeated if needed. I personally performed this entire procedure. DAVE REYNOLDS DO, MPH ABPMR-subspecialty board certification in Pain Medicine [facility] Coding Conscious Sedation used for procedure: No CPT Codes: SI Joint Inj; incl Fluoro - 72260 ([id number] ~G) Additional Codes: Date of Service () Diagnoses: sacroiliac joint dysfunction
== END 2025-07-24 07:22 | disposition home or self-care (01) ==
LOC: PC 07:21
PROVIDERS: PCP Nurse Practitioner Family; Visit Provider Preventive Medicine Occupational Medicine
DX: M54.50 Low back pain, unspecified (principal); M53.3 Sacrococcygeal disorders, not elsewhere classified
CPT/HCPCS: 27096; 72200; J1010; Q9967